=== PATIENT | male | born 1950 | race Caucasian/White ===

== ENCOUNTER 2019-12-04 09:47 | Emergency (ER) | payer OTHER, SELFPAY ==
[2019-12-04] VITALS (7 sets, daily range): BP systolic 85–130; BP diastolic 52–97; PULSE 88–124; RESP 16; TEMP 36.6; O2SAT 94–97; BMI 30.2
--- NOTE | 2019-12-04 09:55 | ECG_ITS ---
Measurements Intervals [place] Rate: 88 P: 71 WI: 191 QRS: 81 QRSD: 144 T: 50 QT: 394 QTc: 478 SINUS RHYTHM WITH OCCASIONAL VENTRICULAR PREMATURE COMPLEXES RIGHT BUNDLE BRANCH BLOCK [120+ ms QRS DURATION, UPRIGHT V1, 40+ ms S IN I/ I/aVL/V4/V5/V6] Compared to ECG 07/23/2018 16:50:21 Ventricular premature complex(es) now present Electronically Signed On 12-04-2019 19:44:22 LEAD MATERIAL HANDLER by Miranda Brady M.D. [email or web address]
--- NOTE | 2019-12-04 09:56 | CT_ITS ---
WS: [id number] CT scan of the head, 12/04/2019 Clinical Data: LOC Comparison: CT head, 01/30/2016 DLP: 490.[address] scans at [facility] use at least one of these dose optimization techniques: automat ed exposure control; mA and/or kV adjustment per patient size (includes targeted exams where dose is matched to clinical indication); or iterative reconstruction. Findings: The ventricular system is moderately dilated without shift. No recent infarct or hemorrhage is seen. There are no abnormal intracerebral masses. The cerebellum and brainstem are not remarkable. Bony windows of the skull and skull base show no fractures or erosions. The mastoid air cells, hospital intern al auditory canals, sella turcica, intraorbital contents, and paranasal sinuses are unremarkable. CT/CT head wo con* [id number] Impression: Moderate cerebral atrophy.
--- NOTE | 2019-12-04 09:56 | XR_ITS ---
WS: [id number] Portable AP upright chest, 12/04/2019 Clinical Data: LOC Comparison: Portable chest, 01/27/2019. Findings: No nodules, masses or effusions are seen. The heart is normal. The pulmonary vascularity is not increased. No pneumonia or pneumothorax is seen. There is a healed posterior lateral left sixth rib fracture. The aortic arch and descending aorta is minimally tortuous. There is an old healed impa cted left humeral head fracture. 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 XR/XR chest 1V portable 12100 Impression: Atherosclerosis.
--- NOTE | 2019-12-04 10:02 | ED_ITS ---
HPI - Alcohol General: Chief Complaint: Alcohol Stated Complaint: ALOC Time Seen by Provider: 12/04/19 09:55 History of Present Illness: HPI narrative: Patient was brought in by EMS this morning for loss of consciousness. Patient reports being on a 2-month alcohol binge. Patient was being visited by the power of research attorney this morning and was found to be unresponsive. EMS arrived and put patient in a better position for airway. Patient aroused and became alert. Patient comes in to the ER responding well to questioning. When asked if patient wants help stopping drinking he said yes. When asked about previous attempts to stop he has had previous attempts to stop with what he quotes as DTs. Patient does deny any history of seizures with alcohol withdrawal. MD complaint: alcohol dependence Review of Systems General: Reports: 10 or more systems reviewed and unremarkable except in HPI and below Neuro: Reports: other (unresponsiveness) [facility] ED PFSH: Social History Smoking and tobacco status: former smoker Physical Exam Const: COMMON NORMALS: no apparent distress and oriented x3 GENERAL APPEARANCE: cooperative HENMT: COMMON NORMALS: normocephalic, external ears normal, EAC's normal, TM's normal bilaterally and external nose normal HEAD & SCALP: normal to inspection and normocephalic FACE & SINUS: normal facial exam NOSE: external nose normal GENERAL EAR: hearing not grossly impaired EXTERNAL EAR: Yes external ears normal EXTERNAL AUDITORY CANAL: EAC's normal TYMPANIC MEMBRANE: TM's normal bilaterally MOUTH: oral and palatal mucosa normal THROAT: posterior oropharynx normal Eye: COMMON NORMALS: PERRL and EOMs intact bilaterally PUPIL: Yes PERRL Neck/C-Spine: COMMON NORMALS: full ROM and no lymphadenopathy Lymph: LYMPHATIC: no lymphedema noted Chest: COMMONS NORMALS: inspection of chest normal and palpation of chest normal Resp: COMMON NORMALS: normal respiratory effort and clear to auscultation bilaterally AUSCULTATION: clear to auscultation bilaterally Cardio: COMMON NORMALS: regular rate and regular rhythm RATE: regular rate RHYTHM: regular rhythm GI: COMMON NORMALS: normal to inspection, nondistended, normoactive bowel sounds and non-tender : COMMON NORMALS: Yes no CVA tenderness BLADDER/KIDNEY EXAM: Yes no CVA tenderness Back/Pelvis: COMMON NORMALS: no CVA tenderness and thoracic and lumbar spine normal to inspection Extremity: COMMON NORMALS: normal to inspection GENERAL: No edema Neuro: COMMON NORMALS: oriented x3, moves all extremities and no focal motor deficits Psych: COMMON NORMALS: mental status grossly normal and cooperative Skin: COMMON NORMALS: no rashes or lesions noted GENERAL SKIN EXAM: no rashes or lesions noted Course Vital Signs: Vital signs: Vital Signs Temperature 98 F 12/04/19 09:50 Pulse Rate 103 H 12/04/19 15:38 Respiratory Rate 16 12/04/19 09:50 Blood Pressure 85/52 12/04/19 15:38 Pulse Oximetry 96 12/04/19 15:38 MDM - Alcohol 2 MDM Narrative: Medical decision making narrative: Patient comes in today with complaints of unresponsiveness this morning. Patient reports that he has been drinking heavily for the last 2 months. He was found by his POA this morning who found him sleeping. When EMS got there they reposition patient he became more alert and responsive. Exam notes abdomen soft nontender skin is warm and dry colors pink. Vital signs were normal. Patient did have some episodes of emesis in the emergency room with some tingeing of blood. Differential diagnosis includes alcoholism, malnutrition, esophageal varices, hiatal hernia, gastritis, ACS, CVA, TIA. Patient was evaluated with laboratory values showing a mild anemia at 11 and 33, creatinine of 1.4, EtOH of 300, negative salicylates and acetaminophen and urine drug screen. Laboratory values for d-dimer and troponins were both negative. Gastroccult was positive. Chest x-ray noted no infiltrates. CT scan of the head was normal. CT scan of the chest abdomen pelvis noted no acute bleed or rupture but did show a large hiatal hernia. Patient was treated with Ativan for anxiety and will continue on that for alcohol withdrawal. Patient was given multivitamins and thiamine. Patient was given magnesium for a low magnesium of 1.6 on labs. Patient was given IV Protonix and will be continued on oral Protonix for his hiatal hernia. Discussed admission to the hospital offering transport to another facility due to bed availability. Patient refused and wished to go home with the medication for his stomach and his withdrawals of alcohol. Patient denied any seizures and previous alcohol withdrawals. Did tell patient that he could return to the ER for worsening symptoms or new concerns. Patient reported understanding of care plan and need for follow-up. Medical Records: Attestation: I reviewed the patient's medical records. (1005, SR rate 88 regular, occasion PVC, no ST elevation) Lab Data: Labs: Lab Results 12/04/19 12/04/19 12/04/19 Range/Units 10:05 10:05 10:05 WBC 3.6 L (4.0-10.0) 10^3/ uL RBC 3.15 L (4.1-5.3) 10^6/u L Hgb 11.0 L (11.7-16.6) g/dL Hct 33.2 L (42.0-52.0) % MCV 105.4 H (80-94) fL MCH 34.9 H (28.0-34.0) pg MCHC 33.1 (30.0-36.0) g/dL RDW 14.4 (12.1-15.1) % Plt Count 66 L (130-400) 10^3/c mm MPV 11.5 H (7.4-10.4) fL Neut % (Auto) 68.2 % Lymph % (Auto) 17.8 % [place] % (Auto) 12.8 % Eos % (Auto) 0.3 % Baso % (Auto) 0.6 % Neut # (Auto) 2.5 (1.8-7.7) 10^3/u L Lymph # (Auto) 0.6 L (0.8-4.8) 10^3/u L [place] # (Auto) 0.5 (0.2-0.9) 10^3/u L Eos # (Auto) 0.0 (0.0-0.8) 10^3/u L Baso # (Auto) 0.0 (0.0-0.1) 10^3/u L Nucleated RBC % (a uto) 0 % Nucleated RBCs # 0.0 /100WBC Specimen Type Sample Site ABG pH (7.35-7.45) ABG pCO2 (35-45) mmHg ABG pO2 (80.0-100.0) mmH g ABG HCO3 (22-26) mmol/L ABG Base Excess (-2.0-2.0) mmol/ L Som Test Hematocrit (42-52) % O2 Delivery Device FiO2 % Embedded Firmware Developer ID Sodium 138 (136-145) mmol/L Potassium 3.8 (3.5-5.1) mmol/L Chloride 87 L (98-107) mmol/L Carbon Dioxide 22 (22-29) mmol/L Anion Gap 32.8 H (5-19) BUN 15 (8-23) mg/dL Creatinine 1.4 H (0.7-1.2) mg/dL GFR Calculation 50.1 L (90-130) mL/min Glucose 94 (65-115) mg/dL Lactic Acid 3.4 H (0.5-2.2) mmol/L Lactic Acid (Sepsi s) (0.5-2.2) mmol/L Calcium 9.3 (8.5-10.5) mg/dL Magnesium 1.6 L (1.7-2.3) mg/dL Total Bilirubin 1.2 (0.15-1.2) mg/dL AST 89 H (0-40) U/L ALT 31 (0-41) U/L Alkaline Phosphata se 97 (40-130) IU/L Troponin T Baselin e (0-15) ng/mL Troponin T 120 Min alturas (0-15) ng/mL Delta Troponin T (0-10) ABS# NT-Pro-B Natriuret Pep 48 (0-125) pg/mL Total Protein 7.2 (6.6-8.7) g/dL Albumin 4.1 (3.5-5.2) g/dL Globulin 3.1 (1.3-4.6) g/dL TSH 2.79 (0.27-4.20) uIU/ mL Salicylates < 0.3 L (3-10) mg/dL Acetaminophen < 5.0 L (10-30) ug/mL Ethyl Alcohol 309 H* (0-10) mg/dL 12/04/19 12/04/19 12/04/19 Range/Units 10:05 10:08 12:10 WBC (4.0-10.0) 10^3/ uL RBC (4.1-5.3) 10^6/u L Hgb (11.7-16.6) g/dL Hct (42.0-52.0) % MCV (80-94) fL MCH (28.0-34.0) pg MCHC (30.0-36.0) g/dL RDW (12.1-15.1) % Plt Count (130-400) 10^3/c mm MPV (7.4-10.4) fL Neut % (Auto) % Lymph % (Auto) % [place] % (Auto) % Eos % (Auto) % Baso % (Auto) % Neut # (Auto) (1.8-7.7) 10^3/u L Lymph # (Auto) (0.8-4.8) 10^3/u L [place] # (Auto) (0.2-0.9) 10^3/u L Eos # (Auto) (0.0-0.8) 10^3/u L Baso # (Auto) (0.0-0.1) 10^3/u L Nucleated RBC % (a uto) % Nucleated RBCs # /100WBC Specimen Type Arterial Sample Site Radial, right ABG pH 7.39 (7.35-7.45) ABG pCO2 40.3 (35-45) mmHg ABG pO2 78.5 L (80.0-100.0) mmH g ABG HCO3 24.2 (22-26) mmol/L ABG Base Excess -0.8 (-2.0-2.0) mmol/ L Som Test Pos Hematocrit 35.9 L (42-52) % O2 Delivery Device Room air FiO2 21.0 % Embedded Firmware Developer ID ed Sodium (136-145) mmol/L Potassium (3.5-5.1) mmol/L Chloride (98-107) mmol/L Carbon Dioxide (22-29) mmol/L Anion Gap (5-19) BUN (8-23) mg/dL Creatinine (0.7-1.2) mg/dL GFR Calculation (90-130) mL/min Glucose (65-115) mg/dL Lactic Acid (0.5-2.2) mmol/L Lactic Acid (Sepsi s) (0.5-2.2) mmol/L Calcium (8.5-10.5) mg/dL Magnesium (1.7-2.3) mg/dL Total Bilirubin (0.15-1.2) mg/dL AST (0-40) U/L ALT (0-41) U/L Alkaline Phosphata se (40-130) IU/L Troponin T Baselin e 12 (0-15) ng/mL Troponin T 120 Min alturas 11.72 (0-15) ng/mL Delta Troponin T -0.28 L (0-10) ABS# NT-Pro-B Natriuret Pep (0-125) pg/mL Total Protein (6.6-8.7) g/dL Albumin (3.5-5.2) g/dL Globulin (1.3-4.6) g/dL TSH (0.27-4.20) uIU/ mL Salicylates (3-10) mg/dL Acetaminophen (10-30) ug/mL Ethyl Alcohol (0-10) mg/dL 12/04/19 Range/Units 15:00 WBC (4.0-10.0) 10^3/ uL RBC (4.1-5.3) 10^6/u L Hgb (11.7-16.6) g/dL Hct (42.0-52.0) % MCV (80-94) fL MCH (28.0-34.0) pg MCHC (30.0-36.0) g/dL RDW (12.1-15.1) % Plt Count (130-400) 10^3/c mm MPV (7.4-10.4) fL Neut % (Auto) % Lymph % (Auto) % [place] % (Auto) % Eos % (Auto) % Baso % (Auto) % Neut # (Auto) (1.8-7.7) 10^3/u L Lymph # (Auto) (0.8-4.8) 10^3/u L [place] # (Auto) (0.2-0.9) 10^3/u L Eos # (Auto) (0.0-0.8) 10^3/u L Baso # (Auto) (0.0-0.1) 10^3/u L Nucleated RBC % (a uto) % Nucleated RBCs # /100WBC Specimen Type Sample Site ABG pH (7.35-7.45) ABG pCO2 (35-45) mmHg ABG pO2 (80.0-100.0) mmH g ABG HCO3 (22-26) mmol/L ABG Base Excess (-2.0-2.0) mmol/ L Som Test Hematocrit (42-52) % O2 Delivery Device FiO2 % Embedded Firmware Developer ID Sodium (136-145) mmol/L Potassium (3.5-5.1) mmol/L Chloride (98-107) mmol/L Carbon Dioxide (22-29) mmol/L Anion Gap (5-19) BUN (8-23) mg/dL Creatinine (0.7-1.2) mg/dL GFR Calculation (90-130) mL/min Glucose (65-115) mg/dL Lactic Acid (0.5-2.2) mmol/L Lactic Acid (Sepsi s) 3.1 H (0.5-2.2) mmol/L Calcium (8.5-10.5) mg/dL Magnesium (1.7-2.3) mg/dL Total Bilirubin (0.15-1.2) mg/dL AST (0-40) U/L ALT (0-41) U/L Alkaline Phosphata se (40-130) IU/L Troponin T Baselin e (0-15) ng/mL Troponin T 120 Min alturas (0-15) ng/mL Delta Troponin T (0-10) ABS# NT-Pro-B Natriuret Pep (0-125) pg/mL Total Protein (6.6-8.7) g/dL Albumin (3.5-5.2) g/dL Globulin (1.3-4.6) g/dL TSH (0.27-4.20) uIU/ mL Salicylates (3-10) mg/dL Acetaminophen (10-30) ug/mL Ethyl Alcohol (0-10) mg/dL Discharge Plan Discharge Patient Disposition: Home, Self-Care Clinical Impression: Esophageal hiatal hernia Alcoholic intoxication Qualifiers: Complication of substance-induced condition: with unspecified complication Qualified Code(s): F10.929 - Alcohol use, unspecified with intoxication, unspecified Condition: Stable Prescriptions: New lorazepam 0.5 mg tablet 0.5 mg PO Q8H PRN (Reason: alcohol withdrawal) Qty: 20 RF: 0 Protonix 40 mg tablet,delayed release (DR/EC) 40 mg PO DAILY Qty: 30 RF: 0 No Action lisinopril 20 mg tablet 20 mg PO DAILY RF: 0 aspirin 81 mg Tablet,Chewable 81 mg PO DAILY RF: 0 Discharge Orders: Discharge Order (Routine); Ordered 12/04/19 Ordered By: Reza Pfeiffer Referrals: Reza Morrow [Primary Care Provider] - Discharge Diet: Usual diet Discharge Activity: Increase activity as tolerated Patient Instructions: Abuse of Alcohol (ED) Activity Restrictions/Additional Instructions: Drink plenty of fluids Drink no alcohol Use medications as directed [facility] Take medications as directed Return to ER for any concerns DT's Coding Level of Care Code 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
[2019-12-04 10:16] LABS: Basophils % 0.6 %; Eosinophils % 0.3 %; Hematocrit 33.2 % (42.0-52.0); Lymphocytes # 0.6 10^3/uL (0.8-4.8); Lymphocytes % 17.8 %; Mean Corpuscular HGB Conc 33.1 g/dL (30.0-36.0); Mean Corpuscular Hemoglobin 34.9 pg (28.0-34.0); Mean Corpuscular Volume 105.4 fL (80-94); Mean Platelet Volume 11.5 fL (7.4-10.4); Monocytes # 0.5 10^3/uL (0.2-0.9); Monocytes % 12.8 %; Neutrophils # 2.5 10^3/uL (1.8-7.7); Neutrophils % 68.2 %; Nucleated Red Blood Cells % 0 %; Platelet Count 66 10^3/cmm (130-400); Red Blood Count 3.15 10^6/uL (4.1-5.3); Red Cell Distribution Width 14.4 % (12.1-15.1); White Blood Count 3.6 10^3/uL (4.0-10.0)
[2019-12-04 10:20] LABS: ABG PCO2 40.3 mmHg (35-45); ABG PH Result 7.39 (7.35-7.45); Arterial Blood Gas Hematocrit 35.9 % (42-52); Base Excess ABG -0.8 mmol/L (-2.0-2.0); Blood Gas Allen Test Pos; Blood Gas Sample Site Radial, right; Blood Gas Sample Type Arterial; HCO3 ABG 24.2 mmol/L (22-26); Oxygen Device ROOM AIR; PO2 ABG 78.5 mmHg (80.0-100.0)
[2019-12-04 10:30] LABS: Lactic Sepsis W/Reflex 3.4 mmol/L (0.5-2.2)
[2019-12-04 10:31] LABS: Troponin(5th) Baseline 12 ng/mL (0-15)
[2019-12-04 10:47] LABS: Alanine Aminotransferase 31 U/L (0-41); Albumin Level 4.1 g/dL (3.5-5.2); Alkaline Phosphatase 97 IU/L (40-130); Anion Gap 32.8 (5-19); Aspartate Amino Transferase 89 U/L (0-40); Blood Urea Nitrogen 15 mg/dL (8-23); Calcium 9.3 mg/dL (8.5-10.5); Carbon Dioxide 22 mmol/L (22-29); Chloride 87 mmol/L (98-107); Creatinine Clr Calc Pharmacy 55.2878; Globulin 3.1 g/dL (1.3-4.6); Glomerular Filtration Rate 50.1 mL/min (90-130); Glucose 94 mg/dL (65-115); Magnesium 1.6 mg/dL (1.7-2.3); NT Pro B Type Natriuretic Pept 48 pg/mL (0-125); Potassium 3.8 mmol/L (3.5-5.1); Sodium 138 mmol/L (136-145); Thyroid Stimulating Hormone 2.79 uIU/mL (0.27-4.20); Total Bilirubin 1.2 mg/dL (0.15-1.2); Total Protein 7.2 g/dL (6.6-8.7)
[2019-12-04] MEDS: LORazepam 0.5 mg Tablet PO (10:48)
[2019-12-04] MEDS: folic acid 1 MG, multivitamin inj 10 ML, thiamine 100 MG in sodium chloride 0.9% 1,000 ML 252.8 MG IV (10:49)
[2019-12-04 10:53] LABS: Acetaminophen < 5.0 ug/mL (10-30); Salicylate < 0.3 mg/dL (3-10)
[2019-12-04 10:54] LABS: Alcohol Level 309 mg/dL (0-10)
[2019-12-04 11:59] LABS: Reflex Lactate Order REFLEX LACTIC ORDERD
[2019-12-04 12:33] LABS: Troponin 5 2HR 11.72 ng/mL (0-15)
[2019-12-04 12:41] LABS: Troponin 5 2HR Delta -0.28 ABS# (0-10)
--- NOTE | 2019-12-04 12:45 | PC.NURSE ---
pt c/o blood tinged vomit. ED provider notified. ED provider in room to assess
--- NOTE | 2019-12-04 12:47 | CT_ITS ---
WS: [id number] CT scan of the chest With IV contrast, CT scan of the abdomen and pelvis with IV contrast Additiona l two-dimensional coronal and sagittal reconstruction was performed. 12/04/2019 Clinical Data: hemoptysis Comparison: Portable chest, 12/04/2019, CT abdomen and pelvis, 12/22/2018. DLP: 2049.[address] scans at [facility] use at least one of these dose optimization techniques: automat ed exposure control; mA and/or kV adjustment per patient size (includes targeted exams where dose is matched to clinical indication); or iterative reconstruction. Findings: Chest: No nodules, masses or effusions are seen. The heart size is normal with no pericardial effusion. The trachea bifurcates normally into the bronc hi. The pulmonary arterial system and thoracic aorta demonstrate no abnormalities or dilatations. There is no axillary or significant mediastinal adenopathy. The old left 11th rib fracture is again n oted. There is a large hiatal hernia. Abdomen/pelvis: The liver, gallbladder, spleen, adrenal glands and pancreas show fatty infiltration of the liver.. The kidneys show equal bilateral contrast excretion with a 4.2 cm superior right renal cyst and a sma ll left cortical cyst. No masses, hydronephrosis or renal calculi can be seen.. The abdominal aorta is normal in size with minimal calcification in the wall.. No appendicitis or diverticulitis is seen. The stomach, small bowel and colon are unremarkable. No ab scess, adenopathy, ascites, mass, obstruction or free air is seen. The bladder is wall. The prostate is enlarged. There are small bilateral fat-containing inguinal irma ias.. The bones of the thorax, lumbar spine, pelvis, and hips show moderate osteoarthritis especiall y in the lumbar vertebral bodies along with L5-S1 degenerative disc disease.. CT/CT chest abd pel w con* Impression: 1. Large hiatal hernia. 2. Fatty infiltration of liver. 3. Bilateral renal cysts. 4. Negative for acute intra-abdominal, intrathoracic or pelvic abnormalities.
[2019-12-04] MEDS: ondansetron 2 mg/ML SDV 2 mL 4 MG IVP (12:59)
[2019-12-04] MEDS: pantoprazole 40 mg SDV 80 MG IVP (13:00)
--- NOTE | 2019-12-04 13:29 | PC.NURSE ---
pt transported to CT by stretcher with tech
[2019-12-04] MEDS: iodixanol 320 mg/mL 100mL Btl IV (13:31)
--- NOTE | 2019-12-04 13:38 | PC.NURSE ---
pt back from ct by antonio
[2019-12-04] MEDS: diphenhydrAMINE 50 mg/mL SDV 1mL 25 MG IVP (13:58)
[2019-12-04] MEDS: metoclopramide 5 mg/mL SDV 2 mL 10 MG IVP (13:58)
[2019-12-04] MEDS: magnesium sulfate premix 2 GM/50 ML PIGGYBACK IV (14:15)
--- NOTE | 2019-12-04 14:42 | PC.NURSE ---
pt's oxygen down to 85% while sleeping. Pt denies any known history of DARRION. nurse placed 2L supplemental oxygen via nasal cannula
[2019-12-04 15:19] LABS: Lactic Acid level (Lactate) 3.1 mmol/L (0.5-2.2)
== END 2019-12-04 16:00 | disposition home or self-care (01) ==
PROVIDERS: Emergency Provider Nurse Practitioner Family; Family Provider Family Medicine; PCP Family Medicine
DX: F10.120 Alcohol abuse with intoxication, uncomplicated (principal); K44.9 Diaphragmatic hernia without obstruction or gangrene; F41.9 Anxiety disorder, unspecified; Y90.8 Blood alcohol level of 240 mg/100 ml or more; K76.0 Fatty (change of) liver, not elsewhere classified; N20.0 Calculus of kidney; G31.9 Degenerative disease of nervous system, unspecified; I70.0 Atherosclerosis of aorta; I45.10 Unspecified right bundle-branch block; Z87.891 Personal history of nicotine dependence; E83.42 Hypomagnesemia
CPT/HCPCS: 36415; 36600; 70450; 71045; 71260; 74177; 80053; 80307; 82803; 83605; 83735; 83880; 84443; 84484; 85025; 87040; 87205; 93005; 96361; 96365; 96374; 96375; 99283; 99284; C9113; J1200; J2405; J2765; J3411; J3475; J3490; J7030; Q9967

== ENCOUNTER 2019-12-24 09:51 | Outpatient (CLI) | payer OTHER, SELFPAY ==
[2019-12-24 10:31] LABS: Basophils # 0.1 10^3/uL (0.0-0.1); Basophils % 1.6 %; Eosinophils # 0.3 10^3/uL (0.0-0.8); Eosinophils % 4.1 %; Hematocrit 35.9 % (42.0-52.0); Hemoglobin 11.4 g/dL (11.7-16.6); Lymphocytes # 1.6 10^3/uL (0.8-4.8); Lymphocytes % 22.6 %; Mean Corpuscular HGB Conc 31.8 g/dL (30.0-36.0); Mean Corpuscular Volume 110.1 fL (80-94); Mean Platelet Volume 11.2 fL (7.4-10.4); Monocytes # 0.5 10^3/uL (0.2-0.9); Monocytes % 6.8 %; Neutrophils # 4.6 10^3/uL (1.8-7.7); Neutrophils % 64.5 %; Nucleated Red Blood Cells % 0 %; Platelet Count 415 10^3/cmm (130-400); Red Blood Count 3.26 10^6/uL (4.1-5.3); Red Cell Distribution Width 12.3 % (12.1-15.1); White Blood Count 7.1 10^3/uL (4.0-10.0)
[2019-12-24 10:56] LABS: Alanine Aminotransferase 22 U/L (0-41); Albumin Level 4.1 g/dL (3.5-5.2); Alkaline Phosphatase 89 IU/L (40-130); Aspartate Amino Transferase 27 U/L (0-40); Blood Urea Nitrogen 7 mg/dL (8-23); Calcium 9.9 mg/dL (8.5-10.5); Carbon Dioxide 30 mmol/L (22-29); Chloride 103 mmol/L (98-107); Ferritin 255 ng/mL (30-400); Globulin 3.6 g/dL (1.3-4.6); Glomerular Filtration Rate 95.6 mL/min (90-130); Glucose 108 mg/dL (65-115); Iron 54 ug/dL (59-158); Osmolality Calculated 290 mOsm/kg (285-295); Percent Saturation 26.8 % (20-50); Sodium 142 mmol/L (136-145); Total Bilirubin 0.4 mg/dL (0.15-1.2); Total Iron Binding Capacity 201 mcg/dl; Total Protein 7.7 g/dL (6.6-8.7); Unsaturated Iron Binding 147 ug/dL (112-347)
--- NOTE | 2019-12-28 14:41 | ONC FU_ITS ---
Dr. Thompson Patient Follow-Up Note Patient: Trenton Sainz Unit #: [id number]: 1950 Dicatated By: Saqib Thompson M.D.Date of Visit:Dec 24, 2019 Onc Med Follow-up/Prog Note Chief Complaint: Anemia. History of Present Illness: This is a 69 year-old man with a mild anemia. I had seen him initially on 04/14/2018. His records from the [place] included a CBC from 03/07/2018 showing hemoglobin 10.9 g with hematocrit 32.2%. The white blood cell count was 4100 and the platelet count was 296,000. Chem profile showed borderline renal function with BUN 14 and creatinine 1.21 mg/dL. Bilirubin was normal at 0.7 mg/dL with alkaline phosphatase normal at 82 U/L and SGOT and SGPT slightly elevated at 106 U/L and 74 U/L respectively. In reviewing his records in [facility], he had several blood counts in 2015, all showing mild anemia, hemoglobin 9-10 g, with white count and platelet counts in the low normal to mildly decreased range. The red cell indices were mildly macrocytic. A previous CBC from 07/15/2014 showed hemoglobin just slightly low at 12.2 g with white blood cell count 9400 and platelet count 293,000. A CT abdomen/pelvis in August 2016 was unremarkable except for a fat-containing right inguinal hernia. There was evidence of fatty infiltration of the liver, but there was no splenomegaly noted. His laboratory studies in April 2018 included CBC showing hemoglobin 11.0 g, white blood cell count 6100, and platelet count 289,000. The red cell indices were mildly macrocytic. B12 level was in the low-normal range at 303 pg/mL. Serum iron studies show transferrin saturation 33.2% and ferritin was normal at 119 ng/mL. LDH was normal and protein electrophoresis studies were unrevealing. At that time he was having significant alcohol use and as he was just mildly anemic, and I had initially opted to just follow him on observation. He has multiple medical illnesses including hypertension, hyperlipidemia, cerebrovascular disease, hiatal hernia/GERD, benign prostatic hypertrophy, degenerative arthritis, and gout. He has additional history of alcohol related pancreatitis, and he has posttraumatic stress disorder with associated anxiety/depression. He is a nonsmoker. He receives his primary care through the [place]. INTERIM HISTORY: At his follow-up visit on 12/11/2018 he had a mild pancytopenia, but with hemoglobin adequate at 12.5 g. I had suspected that it was alcohol related, though with myelodysplastic syndrome not excluded. As his blood counts were just mildly decreased, he continued observation/expectant management. On 01/27/2019 he presented to the emergency room with coffee-ground emesis and tarry stools. His hemoglobin had decreased to 8.4 g. He was transferred to [facility] for admission, where he subsequently was found to have 2 ruptures in the esophagus and an ulcer, as reported by his . He had an uneventful recovery, and at that point he did stop drinking. I had seen him for a follow-up visit on 04/05/2019. At that point he was just mildly anemic with hemoglobin 11.2 g. White blood cell count was normal at 7800 and his platelet count was normal at 312,000. He was seen for follow-up again on 07/09/2019 with hemoglobin stable at 11.4 g and transferrin saturation normal at 23.5%. He is seen for a scheduled visit. He has been feeling tired, but he is able to do some light work. His appetite has been good. He has not had fever. He has night sweating about once a week. He had treatment for bronchitis 1 to 2 months ago. He still has a hacking cough. He brings up mostly white phlegm. He has shortness of breath with activity. He does not complain of chest pain. He has acid reflux symptoms in association with hiatal hernia, but it has been well controlled with omeprazole. Bowel function has been okay. Bladder function has been adequate with tamsulosin. He complains that his shoulders and knees pop. He does not complain of headache. He has numbness/tingling in his feet. His hands also go numb at times. He has anxiety/depression and his Paxil dosage was recently increased to 40 mg. Medications: Allopurinol 1 Tablet (of 100 mg) Oral daily, Artificial Tears 1 drop(s) (of 1.4 %) Solution Ophthalmic b.i.d., Aspirin 1 Tablet (of 325 mg) Tablet, enteric coated Oral daily, Coenzyme Q10 1 Capsule Oral daily, EQ Omeprazole 1 - 2 Tablet (of 20 mg) Tablet, enteric coated Oral daily, Gabapentin 1 Capsule (of 300 mg) Oral daily, Lisinopril 1 Tablet (of 40 mg) Oral daily PRN, Magnesium 1 Capsule (of 400 mg) Oral b.i.d., Multivitamin Adults 1 Tablet Oral daily, PARoxetine HCl 0.5 Tablet (of 40 mg) Oral daily, Tamsulosin HCl 2 Capsule (of 0.4 mg) Oral daily Allergies: No Known Allergies. Review of Systems: Constitutional - His energy level is low. He feels tired. Appetite is good and weight is down about 12 pounds from last visit. No fever, chills, hot flashes, or night sweats. ECOG score is 1, ENMT - No sinus congestion/drainage. No mouth sores. No sore throat or difficulty swallowing, Hematologic/Lymphatic - He bruises easily, Respiratory - No shortness of breath. No cough. No pleuritic pain or hemoptysis, Cardiovascular - No angina pain. No palpitations, Gastrointestinal - No nausea or vomiting. He has heartburn but it is well controlled with Prilosec. No diarrhea or constipation. No blood in the stool or black stools, Genitourinary (M) - No dysuria or hematuria. No urinary frequency. No urgency or incontinence. He does take Flomax at night, Musculoskeletal - He has arthritic pain to his knees and left shoulder, Integumentary - No skin complications, Neurologic - No headaches. He does have occasional dizziness. He has intermittent numbness in his feet and hands, Psychiatric - No anxiety or depression. No insomnia, ENMT - No sinus congestion/drainage. No mouth sores. No sore throat or difficulty swallowing, Hematologic/Lymphatic - He bruises easily, Respiratory - No shortness of breath. No cough. No pleuritic pain or hemoptysis, Cardiovascular - No angina pain. No palpitations, Gastrointestinal - No nausea or vomiting. She has some heartburn that is controlled with Prilosec. No diarrhea or constipation. No blood in the stool or black stools, Genitourinary (M) - No dysuria or hematuria. No urinary frequency. No urgency or incontinence, Musculoskeletal - He had some arthritic pain to his shoulders and knee, Integumentary - No skin complications, Neurologic - No headaches. He does have episodes of dizziness. He has some tingling to his feet and hands, Psychiatric - No anxiety or depression. No insomnia. Vital Signs: Performed on Dec 24, 2019 12:52 Height - 70.00 in Weight - 215 lbs (LOW) BSA - 2.15 sq.m BMI - 30.85 (HIGH) Temperature - 98.6 F Pulse - 100 /min Respiration - 19 /min BP - 132/79 mm(hg) O2 Sat - 99 % Pain - 0 Physical Examination: Constitutional - He looks pretty good generally, Eyes - Sclerae nonicteric. Conjunctivae clear, ENMT - No lesions noted in the oral cavity, Hematologic/Lymphatic - No cervical, clavicular, or axillary adenopathy, Respiratory - Lungs are clear with good air movement bilaterally, Cardiovascular - Heart rhythm is regular. There is a I/ systolic murmur. There is no gallop or rub noted, Abdomen - Soft. Liver is not enlarged. Spleen is not palpable. There is no abdominal mass or ascites noted and there is no inguinal adenopathy, Extremities - No edema, Neurologic - No focal neurologic deficits noted. Lab/Imaging: Test performed on Dec 24, 2019 10:00 Ferritin 255 ng/mL Iron 54 mcg/dL Sodium 142 mmol/L Iron Binding Capacity (TIBC) 201 mcg/dl Potassium 4.0 mmol/L % Iron Saturation 26.8 % Chloride 103 mmol/L CO2 30 mmol/L UIBC 147 mcg/dL Anion Gap 13.0 BUN 7 mg/dL Creatinine 0.8 mg/dL Cr Clearance (Est) 118.52 mL/min eGFR 95.6 mL/min Glucose 108 mg/dL Calcium 9.9 mg/dL Protein, Total 7.7 g/dL Albumin 4.1 g/dL Globulin 3.6 g/dL Bilirubin, Total 0.4 mg/dL ALT (SGPT) 22 U/L AST (SGOT) 27 U/L Alkaline Phosphatase 89 IU/L WBC 7.1 10 3/uL RBC 3.26 10 6/uL HGB 11.4 g/dL HCT 35.9 % MCV 110.1 fL MCH 35.0 pg MCHC 31.8 g/dL RDW 12.3 % Platelet Count 415 10 3/cmm MPV 11.2 fL Neutrophils 4.6 10 3/uL Lymphocytes 1.6 10 3/uL Monocytes 0.5 10 3/uL Eosinophils 0.3 10 3/uL Basophils 0.1 10 3/uL Neutrophil % 64.5 % Lymphocyte % 22.6 % Monocyte % 6.8 % Eosinophil % 4.1 % Basophils % 1.6 % Impression: 1. Patient with mild pancytopenia, presumed to be alcohol related, as he had a history of significant alcohol use and he apparently also had associated pancreatitis. 2. In January 2019 he became more severely anemic in association with acute GI blood loss. At that point he did stop drinking. His other medical illnesses include: 3. Hypertension, which appears to be somewhat labile. 4. Hyperlipidemia. 5. Cerebrovascular disease with history of previous stroke. 6. Hiatal hernia/GERD. He has had associated esophageal stricture. 7. Benign prostatic hypertrophy. He also has had mildly elevated PSA level. 8. Degenerative arthritis. 9. Gout. 10. Posttraumatic stress disorder with anxiety/depression. He has had complete resolution of leukopenia and thrombocytopenia since he stopped drinking. During followup he has remained mildly anemic, but without evidence of iron deficiency or B12 deficiency. As such, this appears to most likely be a mild chronic disease anemia. Myelodysplastic syndrome is not excluded, but appears unlikely. Plan: He continues on observation/expectant management. I will see him again in 6 months. Signed By: Saqib Thompson M.D. <<Signature on File>>
== END 2019-12-24 09:52 | disposition home or self-care (01) ==
PROVIDERS: Family Provider Family Medicine; PCP Family Medicine; Visit Provider Internal Medicine Medical Oncology
DX: D64.9 Anemia, unspecified (principal); I10 Essential (primary) hypertension; E78.5 Hyperlipidemia, unspecified; I25.10 Atherosclerotic heart disease of native coronary artery without angina pectoris; K44.9 Diaphragmatic hernia without obstruction or gangrene; K21.9 Gastro-esophageal reflux disease without esophagitis; N40.0 Benign prostatic hyperplasia without lower urinary tract symptoms; M19.90 Unspecified osteoarthritis, unspecified site; F43.10 Post-traumatic stress disorder, unspecified; F10.21 Alcohol dependence, in remission; F41.8 Other specified anxiety disorders; Z79.899 Other long term (current) drug therapy
CPT/HCPCS: 36415; 80053; 82728; 83540; 83550; 85025; G0463

== ENCOUNTER 2020-06-26 11:58 | Outpatient (CLI) | payer OTHER, SELFPAY ==
[2020-06-26 12:39] LABS: Basophils # 0.1 10^3/uL (0.0-0.1); Basophils % 1.4 %; Eosinophils # 0.1 10^3/uL (0.0-0.8); Eosinophils % 2.5 %; Hematocrit 38.2 % (42.0-52.0); Hemoglobin 12.8 g/dL (11.7-16.6); Lymphocytes # 1.6 10^3/uL (0.8-4.8); Lymphocytes % 27.8 %; Mean Corpuscular HGB Conc 33.5 g/dL (30.0-36.0); Mean Corpuscular Hemoglobin 35.6 pg (28.0-34.0); Mean Corpuscular Volume 106.1 fL (80-94); Mean Platelet Volume 10.7 fL (7.4-10.4); Monocytes # 0.4 10^3/uL (0.2-0.9); Monocytes % 7.2 %; Neutrophils # 3.47 10^3/uL (1.8-7.7); Neutrophils % 60.9 %; Nucleated Red Blood Cells % 0 %; Platelet Count 261 10^3/cmm (130-400); Red Cell Distribution Width 14.1 % (12.1-15.1); White Blood Count 5.7 10^3/uL (4.0-10.0)
[2020-06-26 12:58] LABS: Alanine Aminotransferase 32 U/L (0-41); Albumin Level 4.3 g/dL (3.5-5.2); Alkaline Phosphatase 92 IU/L (40-130); Anion Gap 22.1 (5-19); Aspartate Amino Transferase 49 U/L (0-40); Blood Urea Nitrogen 10 mg/dL (8-23); Carbon Dioxide 22 mmol/L (22-29); Chloride 99 mmol/L (98-107); Globulin 3.1 g/dL (1.3-4.6); Glucose 81 mg/dL (65-115); Osmolality Calculated 286 mOsm/kg (285-295); Potassium 4.1 mmol/L (3.5-5.1); Sodium 139 mmol/L (136-145); Total Bilirubin 0.8 mg/dL (0.15-1.2); Total Protein 7.4 g/dL (6.6-8.7)
[2020-06-26 13:26] LABS: Iron 142 ug/dL (59-158); Total Iron Binding Capacity 229 mcg/dl
[2020-06-26 13:37] LABS: Ferritin 142 ng/mL (30-400); Unsaturated Iron Binding 87 ug/dL (112-347)
--- NOTE | 2020-06-29 10:56 | ONC FU_ITS ---
Dr. Thompson Patient Follow-Up Note Patient: Trenton Sainz Unit #: [id number]: 1950 Dicatated By: Saqib Thompson M.D.Date of Visit:Jun 26, 2020 Onc Med Follow-up/Prog Note Chief Complaint: Anemia. History of Present Illness: This is a 70 year-old man with a mild anemia. I had seen him initially on 04/14/2018. His records from the [place] included a CBC from 03/07/2018 showing hemoglobin 10.9 g with hematocrit 32.2%. The white blood cell count was 4100 and the platelet count was 296,000. Chem profile showed borderline renal function with BUN 14 and creatinine 1.21 mg/dL. Bilirubin was normal at 0.7 mg/dL with alkaline phosphatase normal at 82 U/L and SGOT and SGPT slightly elevated at 106 U/L and 74 U/L respectively. In reviewing his records in [facility], he had several blood counts in 2015, all showing mild anemia, hemoglobin 9-10 g, with white count and platelet counts in the low normal to mildly decreased range. The red cell indices were mildly macrocytic. A previous CBC from 07/15/2014 showed hemoglobin just slightly low at 12.2 g with white blood cell count 9400 and platelet count 293,000. A CT abdomen/pelvis in August 2016 was unremarkable except for a fat-containing right inguinal hernia. There was evidence of fatty infiltration of the liver, but there was no splenomegaly noted. His laboratory studies in April 2018 included CBC showing hemoglobin 11.0 g, white blood cell count 6100, and platelet count 289,000. The red cell indices were mildly macrocytic. B12 level was in the low-normal range at 303 pg/mL. Serum iron studies show transferrin saturation 33.2% and ferritin was normal at 119 ng/mL. LDH was normal and protein electrophoresis studies were unrevealing. At that time he was having significant alcohol use and as he was just mildly anemic, and I had initially opted to just follow him on observation. He has multiple medical illnesses including hypertension, hyperlipidemia, cerebrovascular disease, hiatal hernia/GERD, benign prostatic hypertrophy, degenerative arthritis, and gout. He has additional history of alcohol related pancreatitis, and he has posttraumatic stress disorder with associated anxiety/depression. He is a nonsmoker. He receives his primary care through the [place]. INTERIM HISTORY: At his follow-up visit on 12/11/2018 he had a mild pancytopenia, but with hemoglobin adequate at 12.5 g. I had suspected that it was alcohol related, though with myelodysplastic syndrome not excluded. As his blood counts were just mildly decreased, he continued observation/expectant management. On 01/27/2019 he presented to the emergency room with coffee-ground emesis and tarry stools. His hemoglobin had decreased to 8.4 g. He was transferred to [facility] for admission, where he subsequently was found to have 2 ruptures in the esophagus and an ulcer, as reported by his . He had an uneventful recovery, and at that point he did stop drinking. I had seen him for a follow-up visit on 04/05/2019. At that point he was just mildly anemic with hemoglobin 11.2 g. White blood cell count was normal at 7800 and his platelet count was normal at 312,000. He was seen for follow-up again on 07/09/2019 with hemoglobin stable at 11.4 g and transferrin saturation normal at 23.5%. He is seen for a scheduled visit. He has been feeling pretty good generally. His main complaint now is that his knees have been hurting a lot, enough that he is having trouble walking. It is limiting his activity. He says he has a little energy now. ECOG score is 1. His appetite is good. He has not had fever. He occasionally has sweating at night. He has some sinus drainage with associated cough. He does not complain of shortness of breath or chest pain. He has nausea, which he attributes to mucus. His acid reflux is adequately managed with medication. Bowel function has been okay. His bladder function remains adequate with tamsulosin. He also has pain in his left shoulder, and he complains that his back hurts. He does not complain of headache. He has occasional orthostatic lightheadedness. He has a little bit of numbness in his feet. Medications: Allopurinol 1 Tablet (of 300 mg) Oral daily, Artificial Tears 1 drop(s) (of 1.4 %) Solution Ophthalmic b.i.d., Aspirin 1 Tablet (of 325 mg) Tablet, enteric coated Oral daily, Coenzyme Q10 1 Capsule Oral daily, EQ Omeprazole 1 - 2 Tablet (of 20 mg) Tablet, enteric coated Oral daily, Fluorouracil 1 (1 %) Cream Topical PRN, Gabapentin 1 Capsule (of 300 mg) Oral daily, Lisinopril 0.5 Tablet (of 20 mg) Oral daily PRN, Lovastatin 0.5 Tablet (of 10 mg) Oral daily, Magnesium 1 Capsule (of 400 mg) Oral b.i.d., Metoprolol Tartrate 0.5 Tablet (of 50 mg) Oral b.i.d., Multivitamin Adults 1 Tablet Oral daily, PARoxetine HCl 0.5 Tablet (of 40 mg) Oral daily, prednisoLONE Acetate 1 Drop(s) (of 1 %) Suspension Ophthalmic daily PRN, Tamsulosin HCl 2 Capsule (of 0.4 mg) Oral daily Allergies: No Known Allergies. Review of Systems: Constitutional - He says he has a little energy, but he has limited activity. Appetite is good. His weight is down another 5 lbs. No fever. He occasionally has night sweating. ECOG score is 1, ENMT - He has sinus drainage. No mouth sores. No sore throat or difficulty swallowing, Hematologic/Lymphatic - He bruises a lot, Respiratory - No shortness of breath. He has some cough with the sinus drainage. No pleuritic pain or hemoptysis, Cardiovascular - No angina pain. No palpitations, Gastrointestinal - He has nausea which she attributes to mucus. His acid reflux is adequately managed with medication. No diarrhea or constipation. No blood in the stool or black stools, Genitourinary (M) - No dysuria or hematuria. No urinary frequency. No urgency or incontinence, Musculoskeletal - He has significant pain in his knees, enough that he has trouble walking. He also has pain in his left shoulder and he complains that his back hurts, Integumentary - No skin rash, Neurologic - No headache. He has occasional orthostatic lightheadedness. He has a little bit of numbness in his feet. No other focal neurologic symptoms, Psychiatric - He has anxiety/depression. No insomnia. Vital Signs: Performed on Jun 26, 2020 14:39 Height - 70.00 in Weight - 210.8 lbs (LOW) BSA - 2.13 sq.m BMI - 30.25 (HIGH) Temperature - 99.5 F (HIGH) Pulse - 116 /min (HIGH) Respiration - 22 /min BP - 139/73 mm(hg) O2 Sat - 93 % (LOW) Pain - 8 Physical Examination: Constitutional - He looks pretty good generally, Eyes - Sclerae nonicteric. Conjunctivae clear, ENMT - No lesions noted in the oral cavity, Hematologic/Lymphatic - No cervical, clavicular, or axillary adenopathy, Respiratory - Lungs are clear with good air movement bilaterally, Cardiovascular - Heart rhythm is regular. There is a I/ systolic murmur. There is no gallop or rub noted, Abdomen - Soft. Liver is not enlarged. Spleen is not palpable. There is no abdominal mass or ascites noted and there is no inguinal adenopathy, Extremities - No edema. Dorsalis pedis pulses are palpable bilaterally, Neurologic - No focal neurologic deficits noted. Lab/Imaging: Test performed on Jun 26, 2020 12:00 Ferritin 142 ng/mL Iron 142 mcg/dL Sodium 139 mmol/L Iron Binding Capacity (TIBC) 229 mcg/dl Potassium 4.1 mmol/L % Iron Saturation 62.0 % Chloride 99 mmol/L CO2 22 mmol/L UIBC 87 mcg/dL Anion Gap 22.1 BUN 10 mg/dL Creatinine 1.1 mg/dL Cr Clearance (Est) 83.30 mL/min Glucose 81 mg/dL Osmolality - Calculated 286 mOsm/kg Calcium 9.0 mg/dL Protein, Total 7.4 g/dL Albumin 4.3 g/dL Globulin 3.1 g/dL Bilirubin, Total 0.8 mg/dL ALT (SGPT) 32 U/L AST (SGOT) 49 U/L Alkaline Phosphatase 92 IU/L WBC 5.7 10 3/uL RBC 3.60 10 6/uL HGB 12.8 g/dL HCT 38.2 % MCV 106.1 fL MCH 35.6 pg MCHC 33.5 g/dL RDW 14.1 % Platelet Count 261 10 3/cmm MPV 10.7 fL Neutrophils 3.47 10 3/uL Lymphocytes 1.6 10 3/uL Monocytes 0.4 10 3/uL Eosinophils 0.1 10 3/uL Basophils 0.1 10 3/uL Neutrophil % 60.9 % Lymphocyte % 27.8 % Monocyte % 7.2 % Eosinophil % 2.5 % Basophils % 1.4 % NRBC % 0 % Impression: 1. Patient with mild pancytopenia, presumed to be alcohol related, as he had a history of significant alcohol use and he apparently also had associated pancreatitis. 2. In January 2019 he became more severely anemic in association with acute GI blood loss. At that point he did stop drinking. His other medical illnesses include: 3. Hypertension, which appears to be somewhat labile. 4. Hyperlipidemia. 5. Cerebrovascular disease with history of previous stroke. 6. Hiatal hernia/GERD. He has had associated esophageal stricture. 7. Benign prostatic hypertrophy. He also has had mildly elevated PSA level. 8. Degenerative arthritis. 9. Gout. 10. Posttraumatic stress disorder with anxiety/depression. He had complete resolution of leukopenia and thrombocytopenia after he stopped drinking. During followup he had remained mildly anemic, but without evidence of iron deficiency or B12 deficiency. It appears to most likely be a chronic disease anemia. However, over time there has been a gradual increase in his hemoglobin/hematocrit levels, which are now just at the lower normal range. He is having significant problems associated with arthritis in his knees. He otherwise appears stable clinically. Plan: He continues on observation/expectant management. [facility] I will see him again as needed. Signed By: Saqib Thompson M.D. <<Signature on File>>
== END 2020-06-26 11:59 | disposition home or self-care (01) ==
LOC: ONCMED 12:00
PROVIDERS: PCP Family Medicine; Visit Provider Internal Medicine Medical Oncology
DX: D50.0 Iron deficiency anemia secondary to blood loss (chronic) (principal); M17.2 Bilateral post-traumatic osteoarthritis of knee; I10 Essential (primary) hypertension; E78.5 Hyperlipidemia, unspecified; I25.10 Atherosclerotic heart disease of native coronary artery without angina pectoris; K21.9 Gastro-esophageal reflux disease without esophagitis; K44.0 Diaphragmatic hernia with obstruction, without gangrene; N40.0 Benign prostatic hyperplasia without lower urinary tract symptoms; R97.20 Elevated prostate specific antigen [PSA]; Z86.73 Personal history of transient ischemic attack (TIA), and cerebral infarction without residual deficits
CPT/HCPCS: 80053; 82728; 83540; 83550; 85025; G0463

== ENCOUNTER 2021-01-14 11:37 | Outpatient (CLI) | payer OTHER, SELFPAY ==
[2021-01-14 12:01] LABS: Basophils # 0.1 10^3/uL (0.0-0.1); Basophils % 0.4 %; Eosinophils # 0.1 10^3/uL (0.0-0.8); Eosinophils % 0.8 %; Hematocrit 31.6 % (42.0-52.0); Hemoglobin 10.2 g/dL (11.7-16.6); Lymphocytes % 18.2 %; Mean Corpuscular HGB Conc 32.3 g/dL (30.0-36.0); Mean Corpuscular Hemoglobin 31.4 pg (28.0-34.0); Mean Corpuscular Volume 97.2 fL (80-94); Monocytes # 0.7 10^3/uL (0.2-0.9); Monocytes % 6.6 %; Neutrophils # 8.21 10^3/uL (1.8-7.7); Neutrophils % 73.6 %; Nucleated Red Blood Cells % 0 %; Platelet Count 425 10^3/cmm (130-400); Red Blood Count 3.25 10^6/uL (4.1-5.3); Red Cell Distribution Width 13.9 % (12.1-15.1); White Blood Count 11.2 10^3/uL (4.0-10.0)
[2021-01-14 12:21] LABS: Alanine Aminotransferase 8 U/L (0-41); Albumin Level 3.4 g/dL (3.5-5.2); Alkaline Phosphatase 113 IU/L (40-130); Aspartate Amino Transferase 14 U/L (0-40); Blood Urea Nitrogen 9 mg/dL (8-23); Calcium 9.3 mg/dL (8.5-10.5); Carbon Dioxide 27 mmol/L (22-29); Chloride 101 mmol/L (98-107); Ferritin 472 ng/mL (30-400); Globulin 3.4 g/dL (1.3-4.6); Glucose 98 mg/dL (65-115); Iron 35 ug/dL (59-158); Osmolality Calculated 287 mOsm/kg (285-295); Percent Saturation 20.3 % (20-50); Sodium 139 mmol/L (136-145); Total Bilirubin 0.4 mg/dL (0.15-1.2); Total Iron Binding Capacity 172 mcg/dl; Total Protein 6.8 g/dL (6.6-8.7); Unsaturated Iron Binding 137 ug/dL (112-347)
[2021-01-14 15:12] LABS: Immunoglobulin IGA 484 mg/dL (70-400); Immunoglobulin IGG 1037 mg/dL (700-1600); Immunoglobulin IGM 85 mg/dL (40-230)
[2021-01-14 16:03] LABS: Erythrocyte Sedimentation Rate 107 mm/hr (0-10)
[2021-01-15 09:22] LABS: PROTEIN, TOTAL 6.4 g/dL (6.1-8.1)
[2021-01-15 14:42] LABS: ALPHA 1 GLOBULIN 0.4 g/dL (0.2-0.3); BETA 1 GLOBULIN 0.5 g/dL (0.4-0.6); BETA 2 GLOBULIN 0.5 g/dL (0.2-0.5); GAMMA GLOBULIN 1.1 g/dL (0.8-1.7)
[2021-01-15 15:12] LABS: KAPPA LIGHT CHAIN, FREE, SERUM 34.3 mg/L (3.3-19.4); KAPPA/LAMBDA LIGHT CHAINS FREE 0.75 (0.26-1.65); LAMBDA LIGHT CHAIN, FREE, SERU 45.7 mg/L (5.7-26.3)
--- NOTE | 2021-01-17 17:19 | ONC FU_ITS ---
Dr. Thompson Patient Follow-Up Note Patient: Trenton Sainz Unit #: [id number]: 1950 Dicatated By: Saqib Thompson M.D.Date of Visit:Jan 14, 2021 Onc Med Follow-up/Prog Note Chief Complaint: Anemia. History of Present Illness: This is a 71 year-old man with a mild chronic anemia. I had seen him initially on 04/14/2018. His records from the [place] included a CBC from 03/07/2018 showing hemoglobin 10.9 g with hematocrit 32.2%. The white blood cell count was 4100 and the platelet count was 296,000. Chem profile showed borderline renal function with BUN 14 and creatinine 1.21 mg/dL. Bilirubin was normal at 0.7 mg/dL with alkaline phosphatase normal at 82 U/L and SGOT and SGPT slightly elevated at 106 U/L and 74 U/L respectively. In reviewing his records in [facility], he had several blood counts in 2015, all showing mild anemia, hemoglobin 9-10 g, with white count and platelet counts in the low normal to mildly decreased range. The red cell indices were mildly macrocytic. A previous CBC from 07/15/2014 had shown hemoglobin just slightly low at 12.2 g with white blood cell count 9400 and platelet count 293,000. A CT abdomen/pelvis in August 2016 was unremarkable except for a fat-containing right inguinal hernia. There was evidence of fatty infiltration of the liver, but there was no splenomegaly noted. His laboratory studies in April 2018 included CBC showing hemoglobin 11.0 g, white blood cell count 6100, and platelet count 289,000. The red cell indices were mildly macrocytic. B12 level was in the low-normal range at 303 pg/mL. Serum iron studies show transferrin saturation 33.2% and ferritin was normal at 119 ng/mL. LDH was normal and protein electrophoresis studies were unrevealing. At that time he was having significant alcohol use and as he was just mildly anemic, and I had initially opted to just follow him on observation. On 01/27/2019 he presented to the emergency room with coffee-ground emesis and tarry stools. His hemoglobin had decreased to 8.4 g. He was transferred to [facility] for admission, where he subsequently was found to have 2 ruptures in the esophagus and an ulcer, as reported by his . He had an uneventful recovery, and at that point he did stop drinking. I had seen him for a follow-up visit on 04/05/2019. At that point he was just mildly anemic with hemoglobin 11.2 g. White blood cell count was normal at 7800 and his platelet count was normal at 312,000. He was seen for follow-up again on 07/09/2019 with hemoglobin stable at 11.4 g and transferrin saturation normal at 23.5%. He has multiple medical illnesses including hypertension, hyperlipidemia, cerebrovascular disease, hiatal hernia/GERD, benign prostatic hypertrophy, degenerative arthritis, and gout. He has additional history of alcohol related pancreatitis, and he has posttraumatic stress disorder with associated anxiety/depression. He is a nonsmoker. [facility] INTERIM HISTORY: I had seen him for a follow-up visit again in June 2020. At that point his hemoglobin was up to 12.8 g with normal white blood cell count at 5700 and normal platelet count of 261,000. His red cell indices were still mildly macrocytic. Comprehensive metabolic profile was unremarkable except for slightly elevated SGOT at 49/40 U/L. His serum iron studies actually showed elevated transferrin saturation at 62%. He continued on expectant management. He then had laboratory studies performed by Lina Gonzales on 12/08/2020. He was just mildly anemic with hemoglobin 11.1 g. The white blood cell count was slightly elevated at 11,800 and the platelet count was also elevated at 591,000. Comprehensive metabolic profile again showed a slightly elevated SGOT, but it was otherwise unremarkable. His sedimentation rate, though, was markedly elevated at greater than 130 mm/hour and the CRP was also significantly elevated at 135 mg/L, normal being less than 8.0. His B12 was normal at 532 pg/mL. RA titer was less than 14 IU/mL and his PSA was low at 1.8 ng/mL. He is seen for a followup visit. He has been feeling very weak generally, and he has lost weight. By our scale he is down close to 20 pounds. He is mostly sedentary. ECOG score is 3. He does not have fever or night sweats. He has some allergy related sinus symptoms. He does brings up clear phlegm with it. He does not complain of shortness of breath or chest pain. He has not been having nausea. He does have some acid reflux and he recently had a flareup of constipation. He has urinary frequency and nocturia. He is having pain in his neck and back, which is new. He does not complain of headache. He does have some dizziness. He has a little bit of numbness in his hands. Medications: Allopurinol 1 Tablet (of 300 mg) Oral daily, Artificial Tears 1 drop(s) (of 1.4 %) Solution Ophthalmic b.i.d., Aspirin 1 Tablet (of 325 mg) Tablet, enteric coated Oral daily, Coenzyme Q10 1 Capsule Oral daily, EQ Omeprazole 1 - 2 Tablet (of 20 mg) Tablet, enteric coated Oral daily, Fluorouracil 1 (1 %) Cream Topical PRN, Gabapentin 1 Capsule (of 300 mg) Oral daily, Lisinopril 0.5 Tablet (of 20 mg) Oral daily PRN, Lovastatin 0.5 Tablet (of 10 mg) Oral daily, Magnesium 1 Capsule (of 400 mg) Oral b.i.d., Metoprolol Tartrate 0.5 Tablet (of 50 mg) Oral b.i.d., Multivitamin Adults 1 Tablet Oral daily, PARoxetine HCl 0.5 Tablet (of 40 mg) Oral daily, prednisoLONE Acetate 1 Drop(s) (of 1 %) Suspension Ophthalmic daily PRN, Tamsulosin HCl 2 Capsule (of 0.4 mg) Oral daily Allergies: No Known Allergies. Vital Signs: Performed on Jan 14, 2021 13:36 Height - 70.00 in Weight - 191.6 lbs (LOW) BSA - 2.05 sq.m BMI - 27.49 Temperature - 98.4 F Pulse - 110 /min (HIGH) Respiration - 18 /min BP - 150/86 mm(hg) (HIGH) O2 Sat - 98 % Pain - 9 Fatigue - 10 Physical Examination: Constitutional - He does not appear acutely ill, Eyes - Sclerae nonicteric. Conjunctivae clear, ENMT - No lesions noted in the oral cavity, Hematologic/Lymphatic - No cervical, clavicular, or axillary adenopathy, Respiratory - Lungs are clear with good air movement bilaterally, Cardiovascular - Heart rhythm is regular. There is a I/ systolic murmur. There is no gallop or rub noted, Abdomen - Soft. Liver is not enlarged. Spleen is not palpable. There is no abdominal mass or ascites noted and there is no inguinal adenopathy, Extremities - No edema, Integumentary - There is a raised skin lesion in the right caodaism area which appears suspicious for basal cell carcinoma, Neurologic - No focal neurologic deficits noted. Problem List: 1. Patient with mild chronic anemia. 2. In January 2019 he became more severely anemic in association with acute GI blood loss. 3. Hypertension, which appeared to be somewhat labile. 4. Hyperlipidemia. 5. Cerebrovascular disease with history of previous stroke. 6. Hiatal hernia/GERD. He has had associated esophageal stricture. 7. Benign prostatic hypertrophy. He also has had mildly elevated PSA level. 8. Degenerative arthritis. 9. Gout. 10. Posttraumatic stress disorder with anxiety/depression. Problems Addressed with this Encounter and Plan: 1. Patient with mild anemia, presumed to be alcohol related, as he had a history of significant alcohol use and he apparently also had associated pancreatitis. In January 2019 he became more severely anemic in association with acute GI blood loss. At that point he did stop drinking. During subsequent follow-up he had shown improvement in his blood counts and in his clinical status. On a repeat CBC from 12/08/2020 he was again found to be mildly anemic, hemoglobin 11.1 g. At that point he had also developed mild leukocytosis and mild thrombocytosis. More significantly, he had markedly elevated sed rate and CRP level, suggestive of an underlying inflammatory or malignant process. Along with that, he has had a significant decline in his performance status and he has been losing weight. He will have further laboratory studies today to include CBC, comprehensive metabolic profile, sed rate and CRP level, serum protein electrophoresis, quantitative immunoglobulin levels, and serum free light chain assay. If the findings are persistent, he will have further evaluation with repeat CT scans of the chest, abdomen, and pelvis and or bone marrow aspiration/biopsy, as indicated. 2. He has a skin lesion in the right caodaism area which appear suspicious for basal cell carcinoma. 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 Signed By: Saqib Thompson M.D. <<Signature on File>>
== END 2021-01-14 11:38 | disposition home or self-care (01) ==
PROVIDERS: PCP Family Medicine; Visit Provider Internal Medicine Medical Oncology
DX: D50.0 Iron deficiency anemia secondary to blood loss (chronic) (principal); I10 Essential (primary) hypertension; E78.5 Hyperlipidemia, unspecified; K44.9 Diaphragmatic hernia without obstruction or gangrene; K21.9 Gastro-esophageal reflux disease without esophagitis; N40.0 Benign prostatic hyperplasia without lower urinary tract symptoms; R97.20 Elevated prostate specific antigen [PSA]; M19.90 Unspecified osteoarthritis, unspecified site; M10.9 Gout, unspecified; F43.10 Post-traumatic stress disorder, unspecified; F41.9 Anxiety disorder, unspecified; F32.9 Major depressive disorder, single episode, unspecified; Z79.899 Other long term (current) drug therapy
CPT/HCPCS: 80053; 82728; 82784; 83540; 83550; 83883; 84155; 84165; 85025; 85651; 99215

== ENCOUNTER 2021-02-06 10:33 | Outpatient (CLI) | payer OTHER, SELFPAY ==
--- NOTE | 2021-02-06 11:00 | CT_ITS ---
WS: [id number] CT CHEST, ABDOMEN, AND PELVIS TECHNIQUE: Contrast-enhanced CT of the chest, abdomen, and pelvis with coronal and sagittal reformatt ed images. CLINICAL INFORMATION: MILD CHRONIC ANEMIA COMPARISON: CT December 04, 2019 DLP: [id number] scans at [facility] use at least one of these dose optimization techniques: automat ed exposure control; mA and/or kV adjustment per patient size (includes targeted exams where dose is matched to clinical indication); or iterative reconstruction. CT CHEST: Lungs are well aerated. No acute pulmonary infiltrates. No suspicious pulmonary parenchymal opacities . Tiny subpleural nodule left lower lobe measuring 3 mm. Calcified granuloma right upper lobe. No med iastinal or hilar lymphadenopathy. No axillary lymphadenopathy. Calcified hilar nodes. Mild aortic calcification. Normal caliber thoracic aorta. Coronary calcificati on. Moderate esophageal hiatal hernia. CT ABDOMEN AND PELVIS: Diffuse fatty infiltration of the liver. Mild splenomegaly measuring 13.3 CM. Normal pancreatic paren chymal enhancement. Adrenal glands are normal. Normal renal parenchymal enhancement. Mild bilateral r enal cortical atrophy. No hydronephrosis. Bilateral renal cysts the largest upper pole right kidney m easuring 4.1 CM. Normal caliber abdominal aorta. Mild aortic calcification. Sigmoid diverticulosis. No evidence of acu te diverticulitis. No evidence of small or large bowel obstruction. Heterogeneously enhancing enlarge d prostate measuring 5.4 x 4.6 cm. Mild diffuse bladder wall thickening can be seen with bladder outl et obstruction. No abdominal or pelvic lymphadenopathy. Fat-containing right inguinal hernia. Disc space narrowing w orse L5-S1. Chronic anterior wedging at L2. CT/CT chest abd pel w con* IMPRESSION: 1. Both lungs are well aerated. No acute pulmonary infiltrates. 2. Tiny 3 mm subpleural nodule left lower lobe unchanged from 2019. 3. No mediastinal or hilar lymphadenopathy. 4. Mild diffuse fatty infiltration of the liver. 5. Mild splenomegaly measuring 13.1 CM. 6. Upper pole right renal cyst measuring 4.1 CCM. 7. Moderate esophageal hiatal hernia. 8. Enlarged heterogeneously enhancing prostate with bladder outlet obstruction . Recommend correlation PSA.
[2021-02-06] MEDS: iohexol 300 mg/mL 50 mL Btl PO (11:11)
[2021-02-06] MEDS: iohexol 300 mg/mL 100 mL Btl IV (12:25)
== END 2021-02-06 10:34 | disposition home or self-care (01) ==
PROVIDERS: PCP Family Medicine; Visit Provider Internal Medicine Medical Oncology
DX: D64.9 Anemia, unspecified (principal); N40.0 Benign prostatic hyperplasia without lower urinary tract symptoms; K44.9 Diaphragmatic hernia without obstruction or gangrene; R16.1 Splenomegaly, not elsewhere classified; K76.0 Fatty (change of) liver, not elsewhere classified; R91.1 Solitary pulmonary nodule
CPT/HCPCS: 71260; 74177; Q9967

== ENCOUNTER 2021-06-08 08:00 | Outpatient (CLI) | payer OTHER, SELFPAY ==
[2021-06-08 09:38] LABS: Basophils # 0.1 10^3/uL (0.0-0.1); Basophils % 0.6 %; Eosinophils # 0.3 10^3/uL (0.0-0.8); Eosinophils % 3.3 %; Hematocrit 32.2 % (42.0-52.0); Hemoglobin 10.2 g/dL (11.7-16.6); Lymphocytes # 1.6 10^3/uL (0.8-4.8); Lymphocytes % 18.7 %; Mean Corpuscular HGB Conc 31.7 g/dL (30.0-36.0); Mean Corpuscular Hemoglobin 31.5 pg (28.0-34.0); Mean Corpuscular Volume 99.4 fl (80-94); Mean Platelet Volume 10.7 fL (7.4-10.4); Monocytes # 0.6 10^3/uL (0.2-0.9); Monocytes % 7.2 %; Neutrophils # 6.11 10^3/uL (1.8-7.7); Neutrophils % 69.9 %; Nucleated Red Blood Cells % 0 %; Platelet Count 369 10^3/cmm (130-400); Red Blood Count 3.24 10^6/uL (4.1-5.3); Red Cell Distribution Width 14.1 % (12.1-15.1); Reticulocyte % 2.7 % (0.5-2.0); White Blood Count 8.8 10^3/uL (4.0-10.0)
[2021-06-08 10:04] LABS: Alanine Aminotransferase < 5 U/L (0-41); Albumin Level 3.9 g/dL (3.5-5.2); Alkaline Phosphatase 127 IU/L (40-130); Aspartate Amino Transferase 14 U/L (0-40); Blood Urea Nitrogen 10 mg/dL (8-23); Calcium 8.8 mg/dL (8.5-10.5); Carbon Dioxide 27 mmol/L (22-29); Chloride 101 mmol/L (98-107); Ferritin 256 ng/mL (30-400); Glucose 96 mg/dL (65-115); Iron 38 ug/dL (59-158); Osmolality Calculated 285 mOsm/kg (285-295); Percent Saturation 13.7 % (20-50); Sodium 138 mmol/L (136-145); Total Bilirubin 0.3 mg/dL (0.15-1.2); Total Iron Binding Capacity 276 mcg/dl; Total Protein 6.9 g/dL (6.6-8.7); Unsaturated Iron Binding 238 ug/dL (112-347)
[2021-06-08 10:07] LABS: Anion Gap 14.3 (5-19); Potassium 4.3 mmol/L (3.5-5.1)
[2021-06-08 10:08] LABS: Lactate Dehydrogenase 160 U/L (135-225)
[2021-06-08 10:23] LABS: Slide Review Slide Review Perform
[2021-06-08 10:30] LABS: Erythrocyte Sedimentation Rate 59 mm/hr (0-10)
--- NOTE | 2021-06-11 06:37 | ONC FU_ITS ---
Dr. Thompson Patient Follow-Up Note Patient: Trenton Sainz Unit #: [id number]: 1950 Dicatated By: Saqib Thompson M.D.Date of Visit:Jun 08, 2021 Onc Med Follow-up/Prog Note Chief Complaint: Anemia. History of Present Illness: This is a 71 year-old man with a mild chronic anemia. I had seen him initially on 04/14/2018. His records from the [facility] included a CBC from 03/07/2018 showing hemoglobin 10.9 g with hematocrit 32.2%. The white blood cell count was 4100 and the platelet count was 296,000. Chem profile showed borderline renal function with BUN 14 and creatinine 1.21 mg/dL. Bilirubin was normal at 0.7 mg/dL with alkaline phosphatase normal at 82 U/L and SGOT and SGPT slightly elevated at 106 U/L and 74 U/L respectively. In reviewing his records in [facility], he had several blood counts in 2015, all showing mild anemia, hemoglobin 9-10 g, with white count and platelet counts in the low normal to mildly decreased range. The red cell indices were mildly macrocytic. A previous CBC from 07/15/2014 had shown hemoglobin just slightly low at 12.2 g with white blood cell count 9400 and platelet count 293,000. A CT abdomen/pelvis in August 2016 was unremarkable except for a fat-containing right inguinal hernia. There was evidence of fatty infiltration of the liver, but there was no splenomegaly noted. His laboratory studies in April 2018 included CBC showing hemoglobin 11.0 g, white blood cell count 6100, and platelet count 289,000. The red cell indices were mildly macrocytic. B12 level was in the low-normal range at 303 pg/mL. Serum iron studies show transferrin saturation 33.2% and ferritin was normal at 119 ng/mL. LDH was normal and protein electrophoresis studies were unrevealing. At that time he was having significant alcohol use and as he was just mildly anemic, and I had initially opted to just follow him on observation. On 01/27/2019 he presented to the emergency room with coffee-ground emesis and tarry stools. His hemoglobin had decreased to 8.4 g. He was transferred to [facility] for admission, where he subsequently was found to have 2 ruptures in the esophagus and an ulcer, as reported by his . He had an uneventful recovery, and at that point he did stop drinking. I had seen him for a follow-up visit on 04/05/2019. At that point he was just mildly anemic with hemoglobin 11.2 g. White blood cell count was normal at 7800 and his platelet count was normal at 312,000. He was seen for follow-up again on 07/09/2019 with hemoglobin stable at 11.4 g and transferrin saturation normal at 23.5%. He has multiple medical illnesses including hypertension, hyperlipidemia, cerebrovascular disease, hiatal hernia/GERD, benign prostatic hypertrophy, degenerative arthritis, and gout. He has additional history of alcohol related pancreatitis, and he has posttraumatic stress disorder with associated anxiety/depression. He is a nonsmoker. [facility] INTERIM HISTORY: I had seen him for a follow-up visit again in June 2020. At that point his hemoglobin was up to 12.8 g with normal white blood cell count at 5700 and normal platelet count of 261,000. His red cell indices were still mildly macrocytic. Comprehensive metabolic profile was unremarkable except for slightly elevated SGOT at 49/40 U/L. His serum iron studies actually showed elevated transferrin saturation at 62%. He continued on expectant management. He then had laboratory studies performed by Lina Gonzales on 12/08/2020. He was just mildly anemic with hemoglobin 11.1 g. The white blood cell count was slightly elevated at 11,800 and the platelet count was also elevated at 591,000. Comprehensive metabolic profile again showed a slightly elevated SGOT, but it was otherwise unremarkable. His sedimentation rate, though, was markedly elevated at greater than 130 mm/hour and the CRP was also significantly elevated at 135 mg/L, normal being less than 8.0. His B12 was normal at 532 pg/mL. RA titer was less than 14 IU/mL and his PSA was low at 1.8 ng/mL. I had seen him for a follow-up visit on 01/14/2021. At that point he remained mildly anemic with hemoglobin 10.2 g. Sed rate was still significantly elevated at 107 mm/hour. His serum iron studies showed borderline low transferrin saturation at 20%. There was no monoclonal protein detected on his protein electrophoresis. His CT scans of the chest, abdomen, and pelvis showed no acute findings. There is just mild splenomegaly. The prostate was noted to be enlarged and heterogeneously enhancing and there was associated bladder outlet obstruction. He is seen for a follow-up visit. He indicates he underwent left total knee arthroplasty in [place] 1 month ago. He still has limited activity following that surgery, though he is up and around. His ECOG score is 2. He has good appetite. He has no fever or night sweats. He has a little bit of cough. He does not complain of shortness of breath or chest pain. He has no GI complaints other than constipation, attributable to his pain medication. Bladder function has been adequate with medication. Other than the pain in his knee, which is not bad now, he also has been having some pain in the right shoulder. He does not complain of headache. He occasionally has dizziness. He has no numbness/paresthesia or other focal neurologic symptoms. Medications: Allopurinol 1 Tablet (of 300 mg) Oral daily, Artificial Tears 1 drop(s) (of 1.4 %) Solution Ophthalmic b.i.d., Aspirin 1 Tablet (of 325 mg) Tablet, enteric coated Oral daily, Coenzyme Q10 1 Capsule Oral daily, EQ Omeprazole 1 - 2 Tablet (of 20 mg) Tablet, enteric coated Oral daily, Fluorouracil 1 (1 %) Cream Topical PRN, Gabapentin 1 Capsule (of 300 mg) Oral daily, Lisinopril 0.5 Tablet (of 20 mg) Oral daily PRN, Lovastatin 0.5 Tablet (of 10 mg) Oral daily, Magnesium 1 Capsule (of 400 mg) Oral b.i.d., Metoprolol Tartrate 0.5 Tablet (of 50 mg) Oral b.i.d., Multivitamin Adults 1 Tablet Oral daily, PARoxetine HCl 0.5 Tablet (of 40 mg) Oral daily, prednisoLONE Acetate 1 Drop(s) (of 1 %) Suspension Ophthalmic daily PRN, Tamsulosin HCl 2 Capsule (of 0.4 mg) Oral daily Allergies: No Known Allergies. Vital Signs: Performed on Jun 08, 2021 08:37 Height - 70.00 in Weight - 223.4 lbs (HIGH) BSA - 2.19 sq.m BMI - 32.05 (HIGH) Temperature - 99.2 F (HIGH) Pulse - 76 /min Respiration - 18 /min BP - 115/73 mm(hg) O2 Sat - 97 % Pain - 0 Fatigue - 4 Physical Examination: Constitutional - He looks pretty good generally, Eyes - Sclerae nonicteric. Conjunctivae clear, ENMT - No lesions noted in the oral cavity, Hematologic/Lymphatic - No cervical, clavicular, or axillary adenopathy, Respiratory - Lungs are clear with some decrease in air movement bilaterally, Cardiovascular - Heart rhythm is regular. There is no murmur, gallop, or rub noted, Abdomen - Soft. Liver is not enlarged. Spleen is not palpable. There is no abdominal mass or ascites noted and there is no inguinal adenopathy, Extremities - No edema, Neurologic - No focal neurologic deficits noted. Lab/Imaging: Test performed on Jun 08, 2021 09:08 CRP, High Sensitivity 1.740 mg/dL Ferritin 256 ng/mL Iron 38 mcg/dL LDH (Total) 160 U/L Sodium 138 mmol/L Iron Binding Capacity (TIBC) 276 mcg/dl Potassium 4.3 mmol/L % Iron Saturation 13.7 % Chloride 101 mmol/L CO2 27 mmol/L UIBC 238 mcg/dL Anion Gap 14.3 BUN 10 mg/dL Creatinine 0.6 mg/dL Cr Clearance (Est) 159.5100 mL/min Glucose 96 mg/dL Osmolality - Calculated 285 mOsm/kg Calcium 8.8 mg/dL Protein, Total 6.9 g/dL Albumin 3.9 g/dL Globulin 3.0 g/dL Bilirubin, Total 0.3 mg/dL ALT (SGPT) < 5 U/L AST (SGOT) 14 U/L Alkaline Phosphatase 127 IU/L ESR (Sed Rate) 59 mm/hr Retic Count % 2.7 % WBC 8.8 10 3/uL RBC 3.24 10 6/uL HGB 10.2 g/dL HCT 32.2 % MCV 99.4 fl MCH 31.5 pg MCHC 31.7 g/dL RDW 14.1 % Platelet Count 369 10 3/cmm MPV 10.7 fL Neutrophils 6.11 10 3/uL Lymphocytes 1.6 10 3/uL Monocytes 0.6 10 3/uL Eosinophils 0.3 10 3/uL Basophils 0.1 10 3/uL Neutrophil % 69.9 % Lymphocyte % 18.7 % Monocyte % 7.2 % Eosinophil % 3.3 % Basophils % 0.6 % NRBC % 0 % CBC Slide Review Slide Review Perform SLIDE REIVEW AGREES WITH AUTOMATED RESULTS Problem List: 1. Patient with mild chronic anemia. 2. In January 2019 he became more severely anemic in association with acute GI blood loss. 3. Hypertension, which appeared to be somewhat labile. 4. Hyperlipidemia. 5. Cerebrovascular disease with history of previous stroke. 6. Hiatal hernia/GERD. He has had associated esophageal stricture. 7. Benign prostatic hypertrophy. He also has had mildly elevated PSA level. 8. Degenerative arthritis. 9. Gout. 10. Posttraumatic stress disorder with anxiety/depression. Problems Addressed with this Encounter and Plan: Patient with mild anemia, initially presumed to be alcohol related, as he had a history of significant alcohol use and he apparently also had associated pancreatitis. In January 2019 he became more severely anemic in association with acute GI blood loss. At that point he did stop drinking. During subsequent follow-up he had shown improvement in his blood counts and in his clinical status. On a repeat CBC from 12/08/2020 he was again found to be mildly anemic, hemoglobin 11.1 g. At that point he had also developed mild leukocytosis and mild thrombocytosis. More significantly, he had markedly elevated sed rate and CRP level, suggestive of an underlying inflammatory or malignant process. Along with that, he has had a significant decline in his performance status and he had been losing weight. His CT scans of the chest, abdomen, and pelvis showed no evidence of underlying malignancy or other acute process. He subsequently underwent an uncomplicated right total knee arthroplasty. At this point he remains mildly anemic. His sed rate and CRP have come down significantly. His serum iron studies show low transferrin saturation, consistent with iron deficiency. As such, he will begin oral iron supplementation. If he is not responding or tolerating it, he can then be given parenteral iron replacement. Signed By: Saqib Thompson M.D. <<Signature on File>>
== END 2021-06-08 08:01 | disposition home or self-care (01) ==
PROVIDERS: PCP Family Medicine; Visit Provider Internal Medicine Medical Oncology
DX: D64.9 Anemia, unspecified (principal); Z79.899 Other long term (current) drug therapy
CPT/HCPCS: 36415; 80053; 82728; 83540; 83550; 83615; 85025; 85045; 85651; 86141; 99214

== ENCOUNTER → 2022-02-03 09:14 | Outpatient (BNVA) | payer OTHER, SELFPAY | PROVIDERS: PCP Family Medicine; Referring Provider Family Medicine; Visit Provider Surgery | DX: Z86.010 Personal history of colon polyps (principal) | CPT/HCPCS: 99203 ==

== ENCOUNTER 2022-02-28 13:50 | Emergency (ER) | payer OTHER, SELFPAY ==
[2022-02-28 14:08] VITALS: BP 182/113; PULSE 130; RESP 22; O2SAT 99; BMI 29.5
[2022-02-28 14:16] VITALS: BP 182/113; PULSE 100; O2SAT 98
--- NOTE | 2022-02-28 14:18 | W.ED.MALEGU ---
HPI - Male Genitourinary General: Chief complaint: Urogenital-Male Stated complaint: cant urinate Time Seen by Provider: 02/28/22 14:11 Source: patient and family Mode of arrival: ambulatory Limitations: no limitations History of Present Illness: This patient presents to the emergency department accompanied by his spouse. He states over the past several days he has had difficulty emptying his bladder. He states he has urinary frequency and is up and down all the time urinating small amounts. He denies any fevers or chills. He does take blood pressure medicine as well as tamsulosin but does not take a diuretic. He states he previously saw a urologist several years ago for urinary issues and was prescribed tamsulosin at that time. He denies chest pain shortness of breath fevers chills abdominal pain etc. Associated symptoms: Reports dysuria; Deny nausea or vomiting Review of Systems Const: Denies: fever(s) or chills Eyes: Denies: change in vision ENMT: Denies: throat pain or odynophagia Card: Denies: chest pain, palpitations or irregular heart rhythm Resp: Denies: dyspnea, productive cough or non-productive cough GI: Denies: abdominal pain, nausea or vomiting : Reports: dysuria, urinary urgency, urinary hesitancy, urinary dribbling, difficulty starting urination and nocturia Skin/Breast: Denies: rash, pruritus or erythema Neuro: Denies: headache(s), numbness in extremities or weakness in extremities Psych: Denies: anxiety or depression Endo: Denies: polyuria or polydipsia PFS ED PFSH: Medical History GERD (gastroesophageal reflux disease) History of nonmelanoma skin cancer HTN (hypertension) Surgical History No pertinent past surgical history Social History Smoking and tobacco status: never smoked History of recent travel: No Physical Exam Narrative: EXAM NARRATIVE: Makes good eye contact. Speech is goal-directed. Answers questions appropriately. Const: COMMON NORMALS: no acute distress, patient oriented x3 and alert GENERAL APPEARANCE: cooperative NUTRITIONAL APPEARANCE: overweight HENMT: COMMON NORMALS: normocephalic, atraumatic and moist oral mucous membranes HEAD & SCALP: normocephalic and atraumatic Eye: COMMON NORMALS: Equal, round and reactive pupils present, EOMs intact bilaterally and conjunctivae normal CONJUNCTIVA: Yes conjunctivae normal PUPIL: Yes Equal, round and reactive pupils present Neck/C-Spine: COMMON NORMALS: full ROM, supple and no JVD Chest: COMMONS NORMALS: normal inspection of the chest and normal palpation of entire chest wall Resp: COMMON NORMALS: normal respiratory effort, No retractions, No use of accessory muscles and clear to auscultation bilaterally AUSCULTATION: clear to auscultation bilaterally Cardio: COMMON NORMALS: no JVD, regular rate, regular rhythm, No murmurs present (Cardio) and Peripheral pulses 2+ throughout RATE: regular rate RHYTHM: regular rhythm PERIPHERAL PULSES: Peripheral pulses 2+ throughout GI: COMMON NORMALS: Normal to inspection, nondistended, normoactive bowel sounds present, Soft to palpation, non-tender and no masses PALPATION: Yes Soft to palpation : COMMON NORMALS: Yes no CVA tenderness BLADDER/KIDNEY EXAM: Yes no CVA tenderness Back/Pelvis: COMMON NORMALS: no CVA tenderness, thoracic and lumbar spine normal to inspection, no thoracic nor lumbar tenderness and thoraco-lumbar ROM normal Extremity: COMMON NORMALS: normal to inspection, full ROM, capillary refill normal, no clubbing, cyanosis or edema, no calf tenderness and no pedal edema Neuro: COMMON NORMALS: patient oriented x3, moves all extremities, no focal motor deficits and no sensory deficits noted SENSORIUM/ORIENTATION: Yes alert CRANIAL NERVES: Yes CN normal except as noted Psych: COMMON NORMALS: mental status grossly normal and cooperative Skin: COMMON NORMALS: no rashes or lesions noted, no wounds and turgor normal GENERAL SKIN EXAM: no rashes or lesions noted and turgor normal Course Reevaluation(s): Reevaluation #1: Portable bedside ultrasound was used to visualize the urinary bladder. Using the phased array probe a relatively large amount of clear fluid was noted and what appears to be the urinary bladder. No obvious debris is noted within the bladder. This is after the patient spontaneously voided approximately 300 mL of urine. Patient appears to be having urinary retention after spontaneous void. Time: 14:31 Reevaluation #2: Patient's had at least 700 mL of urine output since Treadwell was placed. His urinalysis is reassuring. Additional history was forthcoming apparently he had had some dysuria last week and was seen at a primary care office who had prescribed him antibiotic. I suspect he was having some urinary retention either related to infection or as a primary etiology of his symptoms at that time. He was probably getting some overflow only and not completely emptying. I have recommended we leave the Treadwell in for the next 3 to 4 days. We will have them call the urologist who is he seen before tomorrow to get him in to remove his Treadwell and reevaluate him. We also discussed return precautions. Time: 15:44 Vital Signs: Vital signs: Vital Signs Pulse Rate 100 02/28/22 14:16 Respiratory Rate 22 H 02/28/22 14:08 Blood Pressure 182/113 02/28/22 14:16 Pulse Oximetry 98 02/28/22 14:16 MDM - Male Medical Decision Making Patient with a known history of BPH who was in urinary retention. Treadwell was placed with good results. Patient has no findings to suggest infection at this time and is otherwise clinically stable. We will leave the Treadwell and to allow complete bladder recovery and have him follow-up with urology later this week. Differential Diagnosis Likely acute retention of urine Medical Records I reviewed the patient's medical records. Lab Data I reviewed the patient's lab results. Laboratory Results Urine Color Straw (Yellow) 02/28/22 14:24 Urine Appearance Clear (CLEAR) 02/28/22 14:24 Urine pH 6.5 (5-7) 02/28/22 14:24 Ur Specific [place] 1.000 (1.005-1.030) L 02/28/22 14:24 Urine Protein Neg (Negative) 02/28/22 14:24 Urine Glucose (UA) Norm (Normal) 02/28/22 14:24 Urine Ketones Negative (Negative) 02/28/22 14:24 Urine Blood Neg (Negative) 02/28/22 14:24 Urine Nitrate Negative (Negative) 02/28/22 14:24 Urine Bilirubin Neg (Negative) 02/28/22 14:24 Urine Urobilinogen Norm mg/dL (Negative) 02/28/22 14:24 Ur Leukocyte Esterase Negative (Negative) 02/28/22 14:24 Discharge Plan Discharge Patient Disposition: Home Clinical Impression: Acute retention of urine Condition: Stable Prescriptions: No Action carvedilol 12.5 mg tablet 12.5 mg PO BID 0RF Rx Instructions: must administer with a meal/food aspirin 325 mg tablet 325 mg PO DAILY 0RF fluorouracil 5 % cream 1 applic topical BID 0RF guaifenesin 400 mg tablet 400 mg PO Q4H 0RF mupirocin calcium 2 % cream 1 applic topical BID 0RF omeprazole 40 mg capsule,delayed release(DR/EC) 40 mg PO DAILY 0RF paroxetine HCl 40 mg tablet 40 mg PO DAILY 0RF tamsulosin 0.4 mg capsule 0.4 mg PO DAILY 0RF meloxicam [Mobic] 15 mg tablet 15 mg PO DAILY Qty: 30 0RF allopurinol 300 mg tablet 150 mg PO DAILY 0RF folic acid 1 mg tablet 1 mg PO DAILY 0RF gabapentin 300 mg capsule 300 mg PO DAILY 0RF lisinopril 10 mg tablet 10 mg PO DAILY 0RF multivitamin with iron Tablet 1 tab PO DAILY 0RF thiamine HCl (vitamin B1) 100 mg tablet 100 mg PO DAILY 0RF lorazepam 0.5 mg tablet 0.5 mg PO Q8H PRN (Reason: alcohol withdrawal) Qty: 20 0RF Protonix 40 mg tablet,delayed release (DR/EC) 40 mg PO DAILY Qty: 30 0RF Discharge Orders: Discharge ED (Routine); Ordered 02/28/22 Ordered By: Osmin Bess Referrals: Sharif Sheriff MD [Physician] - 4-7 days (Patient was seen in ED for acute retention.) Dodie Frias MD [Primary Care Provider] - Discharge Diet: Usual diet Discharge Activity: Increase activity as tolerated Patient Instructions: Opioid Safety Activity Restrictions/Additional Instructions: Maintain the catheter until you are seen by the urologist. Call the urologist office in the morning to arrange an appointment for later this week. If you have worsening symptoms return to this or the nearest emergency department. Continue all your usual medications. Coding Level of Care Code ED Manager Scheduling for Moe Anand Exam Comprehensive
--- NOTE | 2022-02-28 14:27 | PC.NURSE ---
Patient voided 300ml of urine in urinal prior to being seen by doctor
[2022-02-28 14:35] LABS: Add Urine Microscopic? NO; Charge for UA Resulting for Rev
--- NOTE | 2022-02-28 14:45 | PC.NURSE ---
After placing hollingsworth patient voided 700ml of urine. Light yellow color, no foul odor.
[2022-02-28 14:50] LABS: Bilirubin Urine Neg (Negative); Blood Urine Neg (Negative); Glucose Urine UA Norm (Normal); Ketones Urine Negative (Negative); Leukocyte Esterase Urine Negative (Negative); Nitrate Urine Negative (Negative); Protein Urine Neg (Negative); Urine Appearance Clear (CLEAR); Urine Color Straw (Yellow); Urobilinogen Urine Norm (Negative); pH Urine 6.5 (5-7)
== END 2022-02-28 16:43 | disposition home or self-care (01) ==
PROVIDERS: Emergency Provider Emergency Medicine; PCP Family Medicine
DX: N40.1 Benign prostatic hyperplasia with lower urinary tract symptoms (principal); R33.8 Other retention of urine
CPT/HCPCS: 81003; 99283

== ENCOUNTER 2022-03-03 17:12 | Emergency (ER) | payer OTHER, SELFPAY ==
[2022-03-03 17:23] VITALS: BP 103/57; PULSE 104; RESP 18; TEMP 36.8; O2SAT 97; BMI 29.5
--- NOTE | 2022-03-03 18:24 | W.ED.MALEGU ---
HPI - Male Genitourinary General: Chief complaint: Urogenital-Male Stated complaint: Cannot urinate Time Seen by Provider: 03/03/22 18:22 History of Present Illness: 72-year-old male patient comes in today for complaints of poor urine output. Patient had a Treadwell catheter placed on Tuesday in the emergency department for acute urinary retention. Patient reports he is only had about 600 mL out for the last 24 hours. Patient is concerned that it has become blocked. Patient does report some discomfort in the penis and pelvic area. Patient appears in no distress. Patient appears chronically ill. Patient appears in mild pain. Review of Systems General: Reports: 10 or more systems reviewed and unremarkable except in HPI and below Const: Denies: fever(s) Card: Denies: chest pain Resp: Denies: dyspnea : Reports: difficulty urinating [facility] ED PFSH: Medical History GERD (gastroesophageal reflux disease) History of nonmelanoma skin cancer HTN (hypertension) Surgical History No pertinent past surgical history Social History Smoking and tobacco status: never smoked History of recent travel: No Physical Exam Const: COMMON NORMALS: alert HENMT: COMMON NORMALS: normocephalic HEAD & SCALP: normocephalic Neck/C-Spine: COMMON NORMALS: full ROM Resp: COMMON NORMALS: normal respiratory effort and clear to auscultation bilaterally AUSCULTATION: clear to auscultation bilaterally Cardio: COMMON NORMALS: regular rate RATE: regular rate GI: COMMON NORMALS: Soft to palpation AUSCULTATION: Yes normoactive bowel sounds PALPATION: Yes Soft to palpation : COMMON NORMALS: Yes no CVA tenderness BLADDER/KIDNEY EXAM: Yes no CVA tenderness MEATUS: meatal discharge and Erythema at meatus Back/Pelvis: COMMON NORMALS: no CVA tenderness Neuro: SENSORIUM/ORIENTATION: Yes alert Skin: COMMON NORMALS: no rashes or lesions noted GENERAL SKIN EXAM: no rashes or lesions noted Course Vital Signs: Vital signs: Vital Signs Temperature 98.2 F 03/03/22 17:23 Pulse Rate 104 H 03/03/22 17:23 Respiratory Rate 18 03/03/22 17:23 Blood Pressure 103/57 03/03/22 17:23 Pulse Oximetry 97 03/03/22 17:23 MDM - Male Medical Decision Making Patient comes in today for concerns of poor urine output. On exam abdomen was soft with no palpable masses. Bowel sounds were present. Vital signs were normal. Patient had a urinary catheter placed Tuesday evening and it had been working fine until today he had increased discomfort. Differential diagnosis includes acute urinary retention, UTI, urinary Treadwell cath dysfunction. Bladder scan noted no significant amounts of urine in the bladder. Urinalysis had increased white blood cells and red blood cells in the urinary bladder. White blood cell count was 8.7, remainder of labs were insignificant and without significant change from prior exams. Patient be treated for a catheter associated urinary tract infection with Cipro 1 500 mg twice a day for 7 days. Patient has an appointment scheduled for urology next Tuesday. Patient should continue with routine care of the catheter follow-up with primary care for further instructions return to ER for new concerns. Patient reported understanding along with spouse. Lab Data : 03/03/22 20:15 03/03/22 20:15 Laboratory Results WBC 8.7 10^3/uL (4.0-10.0) 03/03/22 20:15 RBC 3.14 10^6/uL (4.1-5.3) L 03/03/22 20:15 Hgb 11.1 g/dL (11.7-16.6) L 03/03/22 20:15 Hct 33.5 % (42.0-52.0) L 03/03/22 20:15 MCV 106.7 fl (80-94) H 03/03/22 20:15 MCH 35.4 pg (28.0-34.0) H 03/03/22 20:15 MCHC 33.1 g/dL (30.0-36.0) 03/03/22 20:15 RDW 14.5 % (12.1-15.1) 03/03/22 20:15 Plt Count 328 10^3/cmm (130-400) 03/03/22 20:15 MPV 10.9 fL (7.4-10.4) H 03/03/22 20:15 Neut % (Auto) 70.6 % 03/03/22 20:15 Lymph % (Auto) 19.0 % 03/03/22 20:15 [place] % (Auto) 7.6 % 03/03/22 20:15 Eos % (Auto) 1.7 % 03/03/22 20:15 Baso % (Auto) 0.8 % 03/03/22 20:15 Neut # (Auto) 6.14 10^3/uL (1.8-7.7) 03/03/22 20:15 Lymph # (Auto) 1.7 10^3/uL (0.8-4.8) 03/03/22 20:15 [place] # (Auto) 0.7 10^3/uL (0.2-0.9) 03/03/22 20:15 Eos # (Auto) 0.2 10^3/uL (0.0-0.8) 03/03/22 20:15 Baso # (Auto) 0.1 10^3/uL (0.0-0.1) 03/03/22 20:15 Nucleated RBC % (auto) 0 % 03/03/22 20:15 Nucleated RBCs # 0.0 /100WBC 03/03/22 20:15 Sodium 140 mmol/L (136-145) 03/03/22 20:15 Potassium 3.5 mmol/L (3.5-5.1) 03/03/22 20:15 Chloride 100 mmol/L (98-107) 03/03/22 20:15 Carbon Dioxide 28 mmol/L (22-29) 03/03/22 20:15 Anion Gap 15.5 (5-19) 03/03/22 20:15 BUN 8 mg/dL (8-23) 03/03/22 20:15 Creatinine 0.7 mg/dL (0.7-1.2) 03/03/22 20:15 GFR Calculation Not Reportable 03/03/22 20:15 Glucose 103 mg/dL (65-115) 03/03/22 20:15 Calculated Osmolality 289 mOsm/kg (285-295) 03/03/22 20:15 Calcium 8.6 mg/dL (8.5-10.5) 03/03/22 20:15 Urine Color Yellow (Yellow) 03/03/22 19:42 Urine Appearance Hazy (CLEAR) A 03/03/22 19:42 Urine pH 7 (5-7) 03/03/22 19:42 Ur Specific [place] 1.005 (1.005-1.030) 03/03/22 19:42 Urine Protein Trace (Negative) 03/03/22 19:42 Urine Glucose (UA) Norm (Normal) 03/03/22 19:42 Urine Ketones Negative (Negative) 03/03/22 19:42 Urine Blood 3+ (Negative) H 03/03/22 19:42 Urine Nitrate Negative (Negative) 03/03/22 19:42 Urine Bilirubin Neg (Negative) 03/03/22 19:42 Urine Urobilinogen Norm mg/dL (Negative) 03/03/22 19:42 Ur Leukocyte Esterase 2+ (Negative) H 03/03/22 19:42 Urine RBC 15-25 /hpf (0-2) H 03/03/22 19:42 Urine WBC 15-25 /hpf (0-5) H 03/03/22 19:42 Ur Squamous Epith Cells 0-4 /hpf (0-5) H 03/03/22 19:42 Amorphous Sediment Not Reportable 03/03/22 19:42 Urine Bacteria Trace /hpf (NONE) 03/03/22 19:42 Urine Mucus Trace /hpf 03/03/22 19:42 Discharge Plan Discharge Patient Disposition: Home Clinical Impression: Acute retention of urine Urinary tract infection Qualifiers: Urinary tract infection type: catheter-associated UTI Indwelling urinary catheter type: indwelling urethral catheter Encounter type: initial encounter Qualified Code(s): T83.511A - Infection and inflammatory reaction due to indwelling urethral catheter, initial encounter Condition: Stable Prescriptions: New ciprofloxacin HCl 500 mg tablet 500 mg PO BID Qty: 14 0RF phenazopyridine 100 mg tablet 100 mg PO Q8H Qty: 6 0RF No Action carvedilol 12.5 mg tablet 12.5 mg PO BID 0RF Rx Instructions: must administer with a meal/food aspirin 325 mg tablet 325 mg PO DAILY 0RF fluorouracil 5 % cream 1 applic topical BID 0RF guaifenesin 400 mg tablet 400 mg PO Q4H 0RF mupirocin calcium 2 % cream 1 applic topical BID 0RF omeprazole 40 mg capsule,delayed release(DR/EC) 40 mg PO DAILY 0RF paroxetine HCl 40 mg tablet 40 mg PO DAILY 0RF tamsulosin 0.4 mg capsule 0.4 mg PO DAILY 0RF meloxicam [Mobic] 15 mg tablet 15 mg PO DAILY Qty: 30 0RF allopurinol 300 mg tablet 150 mg PO DAILY 0RF folic acid 1 mg tablet 1 mg PO DAILY 0RF gabapentin 300 mg capsule 300 mg PO DAILY 0RF lisinopril 10 mg tablet 10 mg PO DAILY 0RF multivitamin with iron Tablet 1 tab PO DAILY 0RF thiamine HCl (vitamin B1) 100 mg tablet 100 mg PO DAILY 0RF lorazepam 0.5 mg tablet 0.5 mg PO Q8H PRN (Reason: alcohol withdrawal) Qty: 20 0RF Protonix 40 mg tablet,delayed release (DR/EC) 40 mg PO DAILY Qty: 30 0RF Discharge Orders: Discharge ED (Routine); Ordered 03/03/22 Ordered By: Reza Pfeiffer Referrals: Dodie Frias MD [Primary Care Provider] - Discharge Diet: Usual diet Discharge Activity: Increase activity as tolerated Patient Instructions: Catheter-associated Urinary Tract Infection (ED) Activity Restrictions/Additional Instructions: Drink plenty of water. Take antibiotic as directed. Follow-up with primary care in 2 days for recheck. Case management should contact you regarding follow-up appointment with urologist. Return to ER for worsening symptoms or new concerns. Coding Level of Care Code ED Product Management Internship for Moe Fwd Exam Comprehensive
[2022-03-03] MEDS: phenazopyridine 100 mg Tablet PO (20:03)
[2022-03-03] MEDS: LORazepam 0.5 mg Tablet PO (20:03)
[2022-03-03 20:10] LABS: Add Urine Microscopic? YES; Bilirubin Urine Neg (Negative); Blood Urine 3+ (Negative); Glucose Urine UA Norm (Normal); Ketones Urine Negative (Negative); Leukocyte Esterase Urine 2+ (Negative); Nitrate Urine Negative (Negative); Protein Urine Trace (Negative); Specific Gravity, Urine 1.005 (1.005-1.030); Urine Appearance Hazy (CLEAR); Urine Color Yellow (Yellow); Urobilinogen Urine Norm (Negative); pH Urine 7 (5-7)
[2022-03-03 20:17] LABS: RBC Urine 15-25 /hpf (0-2); Squamous Epithelial Cell Urine 0-4 /hpf (0-5); WBC Urine 15-25 /hpf (0-5)
[2022-03-03 20:18] LABS: Add Urine Culture? Yes; Bacteria Urine TRACE /hpf; Mucus Urine TRACE /hpf
[2022-03-03 20:23] LABS: Basophils # 0.1 10^3/uL (0.0-0.1); Basophils % 0.8 %; Eosinophils # 0.2 10^3/uL (0.0-0.8); Eosinophils % 1.7 %; Hematocrit 33.5 % (42.0-52.0); Hemoglobin 11.1 g/dL (11.7-16.6); Lymphocytes # 1.7 10^3/uL (0.8-4.8); Mean Corpuscular HGB Conc 33.1 g/dL (30.0-36.0); Mean Corpuscular Hemoglobin 35.4 pg (28.0-34.0); Mean Corpuscular Volume 106.7 fl (80-94); Mean Platelet Volume 10.9 fL (7.4-10.4); Monocytes # 0.7 10^3/uL (0.2-0.9); Monocytes % 7.6 %; Neutrophils # 6.14 10^3/uL (1.8-7.7); Neutrophils % 70.6 %; Nucleated Red Blood Cells % 0 %; Platelet Count 328 10^3/cmm (130-400); Red Blood Count 3.14 10^6/uL (4.1-5.3); Red Cell Distribution Width 14.5 % (12.1-15.1); White Blood Count 8.7 10^3/uL (4.0-10.0)
[2022-03-03 20:41] LABS: Anion Gap 15.5 (5-19); Blood Urea Nitrogen 8 mg/dL (8-23); Calcium 8.6 mg/dL (8.5-10.5); Carbon Dioxide 28 mmol/L (22-29); Chloride 100 mmol/L (98-107); Glucose 103 mg/dL (65-115); Osmolality Calculated 289 mOsm/kg (285-295); Potassium 3.5 mmol/L (3.5-5.1); Sodium 140 mmol/L (136-145)
[2022-03-03] MEDS: sodium chloride 0.9% 500 ML 999 ML IV (20:56)
[2022-03-03] MEDS: ciprofloxacin 500 mg Tablet PO (21:34)
[2022-03-03 21:49] VITALS: BP 153/95; PULSE 95; RESP 18; O2SAT 98
--- NOTE | 2022-03-04 12:39 | DCPLANNER ---
Addendum entered by Dayan Martins 03/16/22 08:45: Patient had a follow up appointment scheduled for 03.10.22 with urology - patient did attend appointment. Addendum entered by Dayan Martins 03/07/22 10:36: Patient has a follow up appointment scheduled for Tuesday, March 10, 2022 at 9:00 with urology. Clinic will call patient with appointment information. Original Note: energy manager had message to schedule a followup appointment for patient with urology. energy manager sent patients information to the front office staff at urology. Patients information will be printed and reviewed. Clinic will call patient with appointment information.
== END 2022-03-03 21:43 | disposition home or self-care (01) ==
PROVIDERS: Emergency Provider Nurse Practitioner Family; PCP Family Medicine
DX: N39.0 Urinary tract infection, site not specified (principal); R33.9 Retention of urine, unspecified; I10 Essential (primary) hypertension; T83.511A Infection and inflammatory reaction due to indwelling urethral catheter, initial encounter; Y82.8 Other medical devices associated with adverse incidents
CPT/HCPCS: 51798; 80048; 81001; 85025; 87086; 96360; 99284; J7040

== ENCOUNTER → 2022-03-10 08:35 | Outpatient (BNVA) | payer OTHER, SELFPAY | PROVIDERS: PCP Family Medicine; Visit Provider Nurse Practitioner Family | DX: R33.9 Retention of urine, unspecified (principal) | CPT/HCPCS: 51700; 51741; 51798; 99203; 99213 ==

== ENCOUNTER 2022-04-15 06:14 | Day surgery (SDC) | payer OTHER, SELFPAY ==
[2022-04-13 14:04] VITALS: BMI 28.7
[2022-04-15 06:41] VITALS: BP 184/94; PULSE 108; RESP 18; TEMP 36.9; O2SAT 93
[2022-04-15] MEDS: sodium chloride 0.9% 1,000 ML 30 ML IV (06:51)
--- NOTE | 2022-04-15 07:25 | W.PM.OPSFHP ---
Same Day Surgery H&P Indication for Procedure/HPI DATE OF PROCEDURE: April 15, 2022 CHIEF COMPLAINT/INDICATIONFOR SURGICAL PROCEDURE: History of colon polyps PREOP DIAGNOSIS: History of colon polyps PLANNED PROCEDURE: Operation Date: 04/15/22 08:00 Proposed Procedures p Colonoscopy 24600/z86.010(Not Applicable) - Seth Rutherford MD 02/03/2022 This is a pleasant 72 years old gentleman referred to my practice with history of colon polyps and he comes today to discuss surveillance colonoscopy.? He denies bleeding per rectum or history of colon cancer. 04/15/2022 Patient comes today for surveillance colonoscopy ROS All systems have been reviewed negative except as for the above or per problem list. Medications/Allergies* Home Medications Medication Instructions Recorded Confirmed Type aspirin 325 mg tablet 325 mg PO DAILY 03/04/21 04/15/22 History carvedilol 12.5 mg tablet 12.5 mg PO BID 03/04/21 04/15/22 History guaifenesin 400 mg tablet 400 mg PO Q4H 03/04/21 04/15/22 History omeprazole 40 mg capsule,delayed 40 mg PO DAILY 03/04/21 04/14/22 History release allopurinol 300 mg tablet 300 mg PO DAILY 02/03/22 04/15/22 History folic acid 1 mg tablet 1 mg PO DAILY 02/03/22 04/14/22 History gabapentin 300 mg capsule 300 mg PO DAILY 02/03/22 04/14/22 History lisinopril 10 mg tablet 10 mg PO DAILY 02/03/22 04/14/22 History multivitamin with iron 1 tab PO DAILY 02/03/22 04/14/22 History thiamine HCl (vitamin B1) 100 mg 100 mg PO DAILY 02/03/22 04/14/22 History tablet paroxetine HCl 40 mg tablet 40 mg PO DAILY 04/15/22 04/15/22 History Allergies/Adverse Reactions Allergy/AdvReac Type Severity Reaction Status Date / Time No Known Allergies Allergy Verified 04/15/22 07:26 Current Medications: Generic Name Dose Route Start Last Admin Trade Name Freq PRN Reason Stop Dose Admin Sodium Chloride 1,000 mls @ 30 mls/hr 04/15/22 06:30 04/15/22 06:51 Sodium Chloride 0.9% IV 04/16/22 06:29 30 mls/hr .Q24H PRAVEENA Administration Pertinent History/Comorbid Conditions* Medical History (Updated 03/11/22 @ 00:01 by ) GERD (gastroesophageal reflux disease) History of nonmelanoma skin cancer HTN (hypertension) Surgical History (Updated 03/10/22 @ 11:49 by Yenifer Da Silva APRN) History of ankle surgery History of colonoscopy with polypectomy History of knee replacement History of surgery on arm 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 jewish No pertinent past surgical history Family History (Updated 03/10/22 @ 08:53 by Jay Pascual) Father, at age 54 Mother, at age 89 Mini stroke Mother Cancer Father Throat Social History Smoking and tobacco status: never smoked Alcohol intake: current Alcohol intake frequency: few times a month Caregiver/support person: Yes Lives independently: Yes Marital status: Single Current occupational status: retired History of recent travel: No Pertinent Exam Findings alert, oriented x 3, regular rate & rhythm and procedure specific exam findings (Abdominal exam nontender nondistended soft) Recommendations Surgery/Procedure today (Surveillance colonoscopy) Coding Level of Care Code Acute Financial Investment Adviser for Moe Anand
--- NOTE | 2022-04-15 08:01 | P.ANESASSM_ITS ---
Pre-Anesthetic Assessment Height/Weight: Height 1.78 m Weight 90.718 kg Temp Pulse Resp BP Pulse Ox 98.4 F 108 H 18 184/94 93 04/15/22 06:41 04/15/22 06:41 04/15/22 06:41 04/15/22 06:41 04/15/22 06:41 Preop Diagnosis: History of colon polyps Operation Date: 04/15/22 08:00 Proposed Procedures p Colonoscopy 06522/[id number](Not Applicable) - Seth Rutherford MD Familial anesthetic complications: none Was Beta Jorge taken within 24 hours: Yes Was Clonidine taken within 24 hours: N/A Last intake: Intake Last Liquid Date 04/14/22 Last Liquid Time 20:00 Last Solid Date 04/14/22 Last Solid Time 11:00 Social Alcohol and No tobacco Exam alert, oriented x 3, clear to auscultation bilaterally and regular rate & rhythm Airway Submandibular: within normal limits Cervical ROM: within normal limits Mallampati: Class II Dentition: chipped CV/HEM Congestive Heart Failure and Hypertension GI Gastroesophageal Reflux Disease [facility] Osteoarthritis/DJD Neuropsych Depression Anesthetic Plan ASA status: 3 Anesthesia: MAC Medications/Allergies Home Medications Medication Instructions Recorded Confirmed Last Taken Type aspirin 325 mg tablet 325 mg PO DAILY 03/04/21 04/15/22 04/12/22 History carvedilol 12.5 mg tablet 12.5 mg PO BID 03/04/21 04/15/22 04/14/22 15:00 History guaifenesin 400 mg tablet 400 mg PO Q4H 03/04/21 04/15/22 04/14/22 History omeprazole 40 mg capsule,delayed 40 mg PO DAILY 03/04/21 04/14/22 04/13/22 History release allopurinol 300 mg tablet 300 mg PO DAILY 02/03/22 04/15/22 04/14/22 History folic acid 1 mg tablet 1 mg PO DAILY 02/03/22 04/14/22 04/13/22 History gabapentin 300 mg capsule 300 mg PO DAILY 02/03/22 04/14/22 04/13/22 History lisinopril 10 mg tablet 10 mg PO DAILY 02/03/22 04/14/22 04/14/22 History multivitamin with iron 1 tab PO DAILY 02/03/22 04/14/22 04/13/22 History thiamine HCl (vitamin B1) 100 mg 100 mg PO DAILY 02/03/22 04/14/22 04/13/22 History tablet paroxetine HCl 40 mg tablet 40 mg PO DAILY 04/15/22 04/15/22 04/13/22 History Allergies Allergy/AdvReac Type Severity Reaction Status Date / Time No Known Allergies Allergy Verified 04/15/22 07:26 Current Medications Generic Name Dose Route Start Last Admin Trade Name Bretq PRN Reason Stop Dose Admin Sodium Chloride 1,000 mls @ 30 mls/hr 04/15/22 06:30 04/15/22 06:51 Sodium Chloride 0.9% IV 04/16/22 06:29 30 mls/hr .Q24H PRAVEENA Administration PFSH Anesthesia Medical History GERD (gastroesophageal reflux disease) History of nonmelanoma skin cancer HTN (hypertension) Surgical History History of ankle surgery History of colonoscopy with polypectomy History of knee replacement History of surgery on arm 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
--- NOTE | 2022-04-15 08:22 | ANE.PACU2 ---
Inpatient post-anesthesia follow up: Airway intact: Yes Vital signs: Temperature 98.4 F Pulse Rate 108 Respiratory Rate 18 Blood Pressure 184/94 Pulse Oximetry 93 Oxygen Delivery Me thod Room Air Oxygen Flow Rate Fraction of Inspir ed Oxygen Hydration adequate: Yes Nausea and vomiting: No Pain level: 1 Mental status: Baseline
[2022-04-15 08:23] VITALS: BP 119/72; PULSE 82; RESP 12; TEMP 36.6; O2SAT 91
[2022-04-15 08:38] VITALS: BP 124/75; PULSE 81; RESP 16; O2SAT 98
== END 2022-04-15 08:50 | disposition home or self-care (01) ==
PROVIDERS: PCP Family Medicine; Visit Provider Surgery
PROC: 0DJD8ZZ Inspection of Lower Intestinal Tract, Via Natural or Artificial Opening Endoscopic (ICD-10-PCS; CPT 45378; principal; 2022-04-15 08:00)
DX: Z12.11 Encounter for screening for malignant neoplasm of colon (principal); K57.30 Diverticulosis of large intestine without perforation or abscess without bleeding; Z86.010 Personal history of colon polyps; Z79.82 Long term (current) use of aspirin; K21.9 Gastro-esophageal reflux disease without esophagitis; I10 Essential (primary) hypertension; I11.0 Hypertensive heart disease with heart failure; I50.9 Heart failure, unspecified
CPT/HCPCS: 45378; J2704; J7030

== ENCOUNTER 2022-05-14 11:56 | Observation (INO) | payer OTHER, MEDICARE, SELFPAY ==
[2022-05-14] VITALS (9 sets, daily range): BP systolic 103–171; BP diastolic 70–96; PULSE 74–111; RESP 16–19; TEMP 36.8; O2SAT 95–98; BMI 27.9
--- NOTE | 2022-05-14 12:02 | ECG_ITS ---
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 Measurements Intervals [place] Rate: 82 P: 44 IA: 195 QRS: 74 QRSD: 143 T: 30 QT: 433 QTc: 507 Interpretive Statements SINUS RHYTHM WITH OCCASIONAL SUPRAVENTRICULAR PREMATURE COMPLEXES RIGHT BUNDLE BRANCH BLOCK [120+ ms QRS DURATION, UPRIGHT V1, 40+ ms S IN I/aVL/V4/V5/V6] Compared to ECG 12/04/2019 10:05:05 Ventricular premature complex(es) no longer present Electronically Signed On 05-14-2022 12:23:09 CDT by Mari Robles M.D. [id number]
--- NOTE | 2022-05-14 12:02 | XR_ITS ---
WS: [id number] Portable AP upright chest, 05/14/2022 Clinical Data: dyspnea/cough Comparison: Portable chest, 12/04/2019. Findings: No nodules, masses or effusions are seen. The heart is normal. The pulmonary vascularity is not increased. No pneumonia or pneumothorax is seen. There is a healed left sixth rib fracture. The aortic arch and descending thoracic aorta show minimal calcification and tortuosity. There is a heale d impacted fracture of the left humeral neck and head. XR/XR chest 1V portable [id number] Impression: Atherosclerosis.
--- NOTE | 2022-05-14 12:04 | ED_ITS ---
HPI - General Adult General: Chief complaint: Dizziness Stated complaint: Dizziness Time Seen by Provider: 05/14/22 11:56 Source: patient and EMS Mode of arrival: EMS History of Present Illness: 72-year-old male presents emergency room with complaints of dizziness frequent falls. Patient is a lifelong heavy drinker he is cut back to the point recently drinking a pint a day used to drink more than 1/5/day. He denies any chest pain or weakness. He was seen [facility] and had orthostatics done and was found to be significantly orthostatic with blood pressures dropped into the 90s systolic from 140s going from lying to standing. He is completely asymptomatic at this time denies changing any medications recently. He denies chest pain or shortness of breath or abdominal pain he has been somewhat dizzy and has frequent falls. Although these have been present for an extended period of time and not significantly changed recently. In January 2019 patient has had an esophageal ulcer with perforation x2 related to his drinking. This required surgical repair. Onset (ago): year(s) Relieving factors: none Exacerbating factors: none Associated symptoms: Deny chest pain, confusion, cough, diaphoresis, decreased appetite, dyspnea, fevers/chills, headache(s), malaise, nausea, rash, palpitations, seizures, short of breath, syncope, vomiting or weakness Treatments prior to arrival: none Review of Systems Const: Denies: malaise or diaphoresis ENMT: Denies: throat pain, ear or mastoid pain, nasal discharge or nasal congestion Card: Denies: chest pain, palpitations or syncope Resp: Denies: dyspnea GI: Denies: nausea or vomiting : Denies: flank pain, dysuria, urinary frequency or urinary urgency Skin/Breast: Denies: rash Neuro: Denies: headache(s) or confusion PFSH ED PFSH: Medical History Diverticulosis large intestine w/o perforation or abscess w/bleeding Falls GERD (gastroesophageal reflux disease) History of nonmelanoma skin cancer HTN (hypertension) Surgical History History of ankle surgery History of colonoscopy with polypectomy History of knee replacement History of surgery on arm 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 methodist No pertinent past surgical history Family History Mother , at age 89 Mini stroke Father , at age 54 Cancer Throat Social History Smoking and tobacco status: never smoked Alcohol intake: current Alcohol intake frequency: few times a month Caregiver/support person: Yes Lives independently: Yes Marital status: Single Current occupational status: retired History of recent travel: No Physical Exam Const: COMMON NORMALS: no acute distress GENERAL APPEARANCE: cooperative and comfortable ORIENTATION/CONSCIOUSNESS: Yes awake, Yes oriented to person, Yes oriented to place and Yes oriented to time HENMT: COMMON NORMALS: normocephalic, atraumatic, hearing grossly normal bilaterally, external ears normal, EAC's normal, TM's normal bilaterally, Normal nasal mucous membranes and turbinates present, moist oral mucous membranes and oropharynx normal HEAD & SCALP: normocephalic and atraumatic NOSE: Normal nasal mucous membranes and turbinates present EXTERNAL EAR: Yes external ears normal EXTERNAL AUDITORY CANAL: EAC's normal TYMPANIC MEMBRANE: TM's normal bilaterally Eye: COMMON NORMALS: Equal, round and reactive pupils present, EOMs intact bilaterally, conjunctivae normal and no scleral icterus CONJUNCTIVA: Yes conjunctivae normal PUPIL: Yes Equal, round and reactive pupils present Resp: COMMON NORMALS: normal respiratory effort, No retractions, No use of accessory muscles and clear to auscultation bilaterally AUSCULTATION: clear to auscultation bilaterally Cardio: COMMON NORMALS: regular rate, regular rhythm and No murmurs present ( Cardio) RATE: regular rate RHYTHM: regular rhythm GI: COMMON NORMALS: Soft to palpation and No hepatosplenomegaly present AUSCULTATION: Yes normoactive bowel sounds PALPATION: Yes Soft to palpation, No Tenderness to palpation present (GI), No Guarding due to palpation present (GI) and Yes No hepatosplenomegaly present Extremity: COMMON NORMALS: normal to inspection, capillary refill normal, no clubbing, cyanosis or edema, no calf tenderness and no pedal edema Neuro: SENSORIUM/ORIENTATION: Yes oriented to person, Yes oriented to place and Yes oriented to time Skin: COMMON NORMALS: no rashes or lesions noted GENERAL SKIN EXAM: no rashes or lesions noted Course Vital Signs: Vital signs: Vital Signs Temperature 98.0 F 05/19/22 14:30 Pulse Rate 94 05/19/22 14:30 Respiratory Rate 15 05/19/22 14:30 Blood Pressure 109/77 05/19/22 14:30 Pulse Oximetry 98 05/19/22 14:30 Oxygen Delivery Me thod 05/19/22 11:20 MDM - General Adult Medical Decision Making Despite multiple fluid boluses 1 unable to get the patient to sustain a blood pressure adequate for ambulation. Several trials he dropped his blood pressure each time. Think some of this may be related obviously to his alcoholism. Discussed with the hospitalist will admit for hypotension. Orders written. Medical Records I reviewed the patient's medical records. Lab Data I reviewed the patient's lab results. : 05/18/22 04:55 05/18/22 04:55 Radiology Impressions Chest X-Ray 05/14/22 12:02 Impression: Atherosclerosis. Laboratory Results WBC 2.4 10^3/uL (4.0-10.0) L 05/14/22 12:30 RBC 2.88 10^6/uL (4.1-5.3) L 05/14/22 12:30 Hgb 10.5 g/dL (11.7-16.6) L 05/14/22 12:30 Hct 29.8 % (42.0-52.0) L 05/14/22 12:30 MCV 103.5 fl (80-94) H 05/14/22 12:30 MCH 36.5 pg (28.0-34.0) H 05/14/22 12:30 MCHC 35.2 g/dL (30.0-36.0) 05/14/22 12:30 RDW 13.9 % (12.1-15.1) 05/14/22 12:30 Plt Count 189 10^3/cmm (130-400) 05/14/22 12:30 MPV 10.9 fL (7.4-10.4) H 05/14/22 12:30 Neut % (Auto) 38.2 % 05/14/22 12:30 Lymph % (Auto) 39.3 % 05/14/22 12:30 [place] % (Auto) 18.9 % 05/14/22 12:30 Eos % (Auto) 1.6 % 05/14/22 12:30 Baso % (Auto) 1.6 % 05/14/22 12:30 Neut # (Auto) 0.93 10^3/uL (1.8-7.7) L* 05/14/22 12:30 Lymph # (Auto) 1.0 10^3/uL (0.8-4.8) 05/14/22 12:30 [place] # (Auto) 0.5 10^3/uL (0.2-0.9) 05/14/22 12:30 Eos # (Auto) 0.0 10^3/uL (0.0-0.8) 05/14/22 12:30 Baso # (Auto) 0.0 10^3/uL (0.0-0.1) 05/14/22 12:30 Nucleated RBC % (auto) 0 % 05/14/22 12:30 Nucleated RBCs # 0.0 /100WBC 05/14/22 12:30 PT 13.40 SECONDS (12.1-14.9) 05/14/22 12:30 INR 0.99 (0.8-1.2) 05/14/22 12:30 Sodium 131 mmol/L (136-145) L 05/14/22 12:30 Potassium 3.0 mmol/L (3.5-5.1) L 05/14/22 12:30 Chloride 83 mmol/L (98-107) L 05/14/22 12:30 Carbon Dioxide 33 mmol/L (22-29) H 05/14/22 12:30 Anion Gap 18.0 (5-19) 05/14/22 12:30 BUN 9 mg/dL (8-23) 05/14/22 12:30 Creatinine 1.0 mg/dL (0.7-1.2) 05/14/22 12:30 GFR Calculation Not Reportable 05/14/22 12:30 Glucose 86 mg/dL (65-115) 05/14/22 12:30 Calculated Osmolality 270 mOsm/kg (285-295) L 05/14/22 12:30 Calcium 8.4 mg/dL (8.5-10.5) L 05/14/22 12:30 Magnesium 0.8 mg/dL (1.7-2.3) L* 05/14/22 12:30 Total Bilirubin 0.8 mg/dL (0.15-1.2) 05/14/22 12:30 AST 68 U/L (0-40) H 05/14/22 12:30 ALT 32 U/L (0-41) 05/14/22 12:30 Alkaline Phosphatase 97 IU/L (40-130) 05/14/22 12:30 Ammonia 20 umol/L (16-60) 05/14/22 12:30 Total Protein 7.0 g/dL (6.6-8.7) 05/14/22 12:30 Albumin 4.1 g/dL (3.5-5.2) 05/14/22 12:30 Globulin 2.9 g/dL (1.3-4.6) 05/14/22 12:30 Lipase 13 U/L (13-60) 05/14/22 12:30 Procalcitonin 0.12 ng/mL (0-0.5) 05/14/22 12:30 Urine Color Yellow (Yellow) 05/14/22 15:36 Urine Appearance Clear (CLEAR) 05/14/22 15:36 Urine pH 5 (5-7) 05/14/22 15:36 Ur Specific [place] 1.005 (1.005-1.030) 05/14/22 15:36 Urine Protein Neg (Negative) 05/14/22 15:36 Urine Glucose (UA) Norm (Normal) 05/14/22 15:36 Urine Ketones Negative (Negative) 05/14/22 15:36 Urine Blood Neg (Negative) 05/14/22 15:36 Urine Nitrate Negative (Negative) 05/14/22 15:36 Urine Bilirubin Neg (Negative) 05/14/22 15:36 Urine Urobilinogen Norm mg/dL (Negative) 05/14/22 15:36 Ur Leukocyte Esterase Negative (Negative) 05/14/22 15:36 Discharge Plan Discharge Patient Disposition: Admitted As Inpatient Admit Provider: Mal Diggs Clinical Impression: Orthostatic hypotension, ETOH abuse Condition: Stable Discharge Activity: Increase activity as tolerated Coding Level of Care Code ED Industrial Safety And Health Manager for Moe Anand
[2022-05-14 12:50] LABS: Basophils % 1.6 %; Eosinophils % 1.6 %; Hematocrit 29.8 % (42.0-52.0); Hemoglobin 10.5 g/dL (11.7-16.6); Lymphocytes % 39.3 %; Mean Corpuscular HGB Conc 35.2 g/dL (30.0-36.0); Mean Corpuscular Hemoglobin 36.5 pg (28.0-34.0); Mean Corpuscular Volume 103.5 fl (80-94); Mean Platelet Volume 10.9 fL (7.4-10.4); Monocytes # 0.5 10^3/uL (0.2-0.9); Monocytes % 18.9 %; Neutrophils % 38.2 %; Nucleated Red Blood Cells % 0 %; Platelet Count 189 10^3/cmm (130-400); Red Blood Count 2.88 10^6/uL (4.1-5.3); Red Cell Distribution Width 13.9 % (12.1-15.1); White Blood Count 2.4 10^3/uL (4.0-10.0)
[2022-05-14 12:54] LABS: Neutrophils # 0.93 10^3/uL (1.8-7.7)
[2022-05-14 12:55] LABS: INR 0.99 (0.8-1.2)
--- NOTE | 2022-05-14 12:56 | PC.NURSE ---
NOTIFIED DR. HARRIS OF PT 0.93 NEUTROPHIL COUNT
[2022-05-14 13:00] LABS: Ammonia 20 umol/L (16-60)
[2022-05-14 13:06] LABS: Albumin Level 4.1 g/dL (3.5-5.2); Alkaline Phosphatase 97 IU/L (40-130); Blood Urea Nitrogen 9 mg/dL (8-23); Calcium 8.4 mg/dL (8.5-10.5); Carbon Dioxide 33 mmol/L (22-29); Chloride 83 mmol/L (98-107); Globulin 2.9 g/dL (1.3-4.6); Glucose 86 mg/dL (65-115); Lipase 13 U/L (13-60); Osmolality Calculated 270 mOsm/kg (285-295); Sodium 131 mmol/L (136-145); Total Bilirubin 0.8 mg/dL (0.15-1.2)
[2022-05-14 13:07] LABS: Alanine Aminotransferase 32 U/L (0-41); Aspartate Amino Transferase 68 U/L (0-40)
[2022-05-14] MEDS: sodium chloride 0.9% 500 ML 999 ML IV (13:07)
[2022-05-14 15:43] LABS: Add Urine Microscopic? NO; Charge for UA Resulting for Rev
[2022-05-14 15:55] LABS: Bilirubin Urine Neg (Negative); Blood Urine Neg (Negative); Glucose Urine UA Norm (Normal); Ketones Urine Negative (Negative); Leukocyte Esterase Urine Negative (Negative); Nitrate Urine Negative (Negative); Protein Urine Neg (Negative); Specific Gravity, Urine 1.005 (1.005-1.030); Urine Appearance Clear (CLEAR); Urine Color Yellow (Yellow); Urobilinogen Urine Norm (Negative); pH Urine 5 (5-7)
[2022-05-14] MEDS: sodium chloride 0.9% 1,000 ML 999 ML IV (16:34)
--- NOTE | 2022-05-14 19:02 | PC.NURSE ---
report to GILLIAN Schmidt
--- NOTE | 2022-05-14 19:10 | PM.HP ---
Providers/Chief Complaint Primary Care Provider: Paula Mo MD Chief Complaint: Dizziness History of Present Illness Trenton Sainz is a 72 year old male with past medical history of hypertension, GERD, diverticulosis,, alcohol abuse presented to the hospital for complaint of dizziness and frequent falls. He has been a lifelong heavy drinker but he cut back to the point that recently he drinks about a pint a day. He went to the [facility] and had orthostatic vitals checked there and was found to be significantly orthostatic positive with pressure dropping from 1 40-90 systolic from lying to standing. He has been having frequent falls and feeling dizzy at home. He says this is sort of his baseline but he feels worse today. Patient did have an admission in January 2019 for esophageal ulcer with perforation related to drinking. This was surgically repaired. At this time patient denies any chest pain, weakness. Pt is a very poor historian. He is sexually active and consented yes to getting tested for HIV and hepatitis. ED course: Blood pressure 116/80, respirate 18, pulse 74, temperature 98.3, pulse ox 95 on room air. Chest x-ray did not show any acute pneumonia except atherosclerosis. Labs remarkable for leukopenia, neutropenia, anemia hemoglobin 10.5. Sodium 131, potassium 3. EKG shows right bundle branch block. Medications/Allergies Home Medications Medication Instructions Recorded Confirmed Last Taken Type aspirin 325 mg tablet 325 mg PO DAILY 03/04/21 05/14/22 05/13/22 History carvedilol 12.5 mg tablet 12.5 mg PO BID 03/04/21 05/14/22 05/13/22 History guaifenesin 400 mg tablet 400 mg PO Q4H PRN Congestion 03/04/21 05/14/22 04/14/22 History omeprazole 40 mg capsule,delayed 40 mg PO DAILY 03/04/21 05/14/22 05/13/22 History release allopurinol 300 mg tablet 300 mg PO DAILY 02/03/22 05/14/22 05/13/22 History folic acid 1 mg tablet 1 mg PO DAILY 02/03/22 05/14/22 05/13/22 History gabapentin 300 mg capsule 300 mg PO BEDTIME 02/03/22 05/14/22 05/13/22 History multivitamin with iron 1 tab PO DAILY 02/03/22 05/14/22 05/13/22 History thiamine HCl (vitamin B1) 100 mg 100 mg PO DAILY 02/03/22 05/14/22 05/13/22 History tablet paroxetine HCl 40 mg tablet 40 mg PO DAILY 04/15/22 05/14/22 05/13/22 History cetirizine 10 mg tablet (Zyrtec) 10 mg PO DAILY 05/14/22 05/14/22 05/13/22 History cholecalciferol (vitamin D3) 50 50 mcg PO DAILY 05/14/22 05/14/22 05/13/22 History mcg (2,000 unit) capsule (Vitamin D3) fluticasone propionate 50 2 spray intranasal DAILY PRN Nasal 05/14/22 05/14/22 Unknown History mcg/actuation nasal Congestion spray,suspension tamsulosin 0.4 mg capsule (Flomax) 0.8 mg PO BEDTIME 05/14/22 05/14/22 05/13/22 History venlafaxine 75 mg tablet 75 mg PO DAILY 05/14/22 05/14/22 05/13/22 History Allergies Allergy/AdvReac Type Severity Reaction Status Date / Time No Known Allergies Allergy Verified 04/15/22 07:26 PFSH Acute PFSH: Medical History (Updated 05/14/22 @ 20:04 by Margarita Salazar MD) Diverticulosis large intestine w/o perforation or abscess w/bleeding GERD (gastroesophageal reflux disease) History of nonmelanoma skin cancer HTN (hypertension) Surgical History History of ankle surgery History of colonoscopy with polypectomy History of knee replacement History of surgery on arm 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 adventist No pertinent past surgical history Family History Mother , at age 89 Mini stroke Father , at age 54 Cancer Throat Social History Smoking and tobacco status: never smoked Alcohol intake: current Alcohol intake frequency: few times a month Caregiver/support person: Yes Lives independently: Yes Marital status: Single Current occupational status: retired History of recent travel: No Vitals/I&O/Wt Last Vital Signs Temp 98.3 F 05/14/22 12:03 Pulse 111 H 05/14/22 17:21 Resp 18 05/14/22 16:18 BP 107/74 05/14/22 17:21 Pulse Ox 98 05/14/22 17:21 O2 Del Method 05/14/22 17:21 Weight last 48 hrs Weight 88.451 kg Physical Exam Narrative: General: Alert oriented x3, patient seen sitting up in bed. HEENT: Normocephalic, atraumatic, EOMI, breathing normally on room air Cardio: Regular rate rhythm, normal S1-S2, Respiratory: Clear to auscultation bilaterally GI: Abdomen soft, nontender, nondistended, bowel sounds + Extremities: No lower extremity edema noted. Data : 05/14/22 12:30 05/14/22 12:30 A&P Assessment and plan (1) Orthostatic hypotension: Status: Acute (2) ETOH abuse: Status: Acute (3) GERD (gastroesophageal reflux disease): Status: Acute (4) Hypertension: Status: Acute (5) Falls: Status: Acute (6) Dizziness: Status: Acute (7) Leukopenia: Status: Acute (8) Anemia: Status: Acute (9) Neutropenia: Status: Acute Plan #Dizziness, frequent falls #Orthostatic hypotension #Alcohol abuse #History of esophageal ulcer with perforation x2 related to alcohol abuse requiring surgical repair in 2019 #GERD #Hypertension #Leukopenia, neutropenia #Megaloblastic anemia #Hypokalemia, Hypomagnesemia ? Placed on IV for fluids ? Supplement electrolytes as needed - Patient afebrile and reports no fever at home. ? Start on folic acid and thiamine ? Place on CIWA protocol ? Iron, TIBC, ferritin ? Check peripheral blood smear, further workup thereafter ? Check vitamin B12 ? Check FOBT ? Placed on Protonix 40 daily - Check HIV, hepatitis profile Full code DVT prophylaxis: SCDs Attestations Medical Necessity Statement*: Admit to observation for management of orthostatic hypotension. Coding Level of Care Code Acute Vocational Rehabilitation Supervisor for Moe Anand Diagnoses Orthostatic hypotension I95.1 ETOH abuse F10.10 GERD (gastroesophageal reflux disease) K21.9 Hypertension I10 Falls W19.XXXA Dizziness R42 Leukopenia D72.819 Anemia D64.9 Neutropenia D70.9
[2022-05-14] MEDS: potassium chloride premix 100 ML 15 MEQ IV (20:16)
[2022-05-14 21:13] LABS: Magnesium 0.8 mg/dL (1.7-2.3); Procalcitonin 0.12 ng/mL (0-0.5)
[2022-05-14] MEDS: gabapentin 300 mg Capsule PO (23:36)
[2022-05-14] MEDS: magnesium sulfate premix 4 GM/100 ML PREMIX IV (23:37)
[2022-05-14] MEDS: heparin 5,000 unit/mL INJ 1 mL 5000 UNIT SUBCUT (23:37)
[2022-05-14] MEDS: sodium chloride 0.9% 1,000 ML 100 ML IV (23:37)
[2022-05-15] VITALS (8 sets, daily range): BP systolic 106–147; BP diastolic 75–86; PULSE 78–102; RESP 16–79; TEMP 36.6–36.7; O2SAT 95–99
[2022-05-15 00:36] LABS: HIV 1 & 2 Antibody Non-Reactive (Non-Reactiv); HIV 1 & 2 Antigen Non-Reactive (Non-Reactiv)
[2022-05-15 00:43] LABS: Hepatitis A Antibody IgM Non-Reactive (Nonreactive); Hepatitis B Core AB, Total Non-Reactive (Nonreactive); Hepatitis B Surface AB 3.5 (11.5-1000); Hepatitis B Surface Antigen Non-Reactive (Nonreactive); Hepatitis C Virus Antibody Non-Reactive (Nonreactive)
[2022-05-15] MEDS: folic acid 1 MG, multivitamin inj 10 ML, thiamine 100 MG in sodium chloride 0.9% 1,000 ML 252.8 MG IV (01:19)
[2022-05-15 05:12] LABS: Basophils % 1.1 %; Eosinophils # 0.1 10^3/uL (0.0-0.8); Eosinophils % 1.4 %; Hematocrit 33.1 % (42.0-52.0); Lymphocytes % 26.7 %; Mean Corpuscular HGB Conc 33.2 g/dL (30.0-36.0); Mean Corpuscular Hemoglobin 36.5 pg (28.0-34.0); Mean Platelet Volume 11.2 fL (7.4-10.4); Monocytes # 0.7 10^3/uL (0.2-0.9); Monocytes % 19.4 %; Neutrophils # 1.84 10^3/uL (1.8-7.7); Neutrophils % 51.1 %; Nucleated Red Blood Cells % 0 %; Platelet Count 186 10^3/cmm (130-400); Red Blood Count 3.01 10^6/uL (4.1-5.3); Red Cell Distribution Width 14.5 % (12.1-15.1); White Blood Count 3.6 10^3/uL (4.0-10.0)
[2022-05-15 05:33] LABS: Alanine Aminotransferase 31 U/L (0-41); Albumin Level 3.4 g/dL (3.5-5.2); Alkaline Phosphatase 93 IU/L (40-130); Blood Urea Nitrogen 8 mg/dL (8-23); Calcium 7.9 mg/dL (8.5-10.5); Carbon Dioxide 28 mmol/L (22-29); Chloride 99 mmol/L (98-107); Globulin 2.6 g/dL (1.3-4.6); Glucose 95 mg/dL (65-115); Osmolality Calculated 288 mOsm/kg (285-295); Phosphorus 3.2 mg/dL (2.5-4.5); Sodium 140 mmol/L (136-145)
[2022-05-15 05:37] LABS: Anion Gap 16.2 (5-19); Aspartate Amino Transferase 57 U/L (0-40); Potassium 3.2 mmol/L (3.5-5.1)
[2022-05-15 06:14] LABS: Glucose Point of Care 88 mg/dL (70-110)
[2022-05-15 08:12] LABS: LAB Peripheral Smear Sent for Review
[2022-05-15] MEDS: pantoprazole DR 40 mg Tablet PO (08:53)
[2022-05-15] MEDS: venlafaxine 75 mg Tablet PO (08:53)
[2022-05-15] MEDS: thiamine 100 mg Tablet PO (08:53)
[2022-05-15] MEDS: PARoxetine 20 mg Tablet 40 MG PO (08:54)
[2022-05-15] MEDS: midodrine 5 mg TABLET PO ×3 (09:48→20:41)
[2022-05-15] MEDS: sodium chloride 0.9% 1,000 ML 100 ML IV ×2 (11:47→20:59)
[2022-05-15] MEDS: heparin 5,000 unit/mL INJ 1 mL 5000 UNIT SUBCUT ×2 (11:48→23:05)
--- NOTE | 2022-05-15 17:29 | PM.PN ---
Subjective Subjective: This morning he had an episode of diarrhea, did not make it entirely to the bathroom. So far without recurrence. Earlier was getting lightheaded when standing up. Denies chest pain or pressure. Feeling a bit better. Reports to the nurse that he had just stopped drinking alcohol in the last 24 hours. Prior to that he was drinking a pint a day. He states he feels concerned about going into withdrawal. Does not feel comfortable going home. Vitals/I&O/Wt Last Vital Signs Temp 97.8 F 05/15/22 15:28 Pulse 90 05/15/22 15:28 Resp 16 05/15/22 15:28 BP 135/86 05/15/22 15:28 Pulse Ox 99 05/15/22 15:28 O2 Del Method 05/15/22 15:28 05/15/22 05/15/22 05/15/22 06:59 14:59 22:59 Intake Total 3191.2 / 3191.2 1480 / 1480 Output Total 1300 / 1300 250 / 250 300 / 550 Balance 1891.2 / 1891.2 1230 / 1230 -300 / 930 Weight last 48 hrs Weight 91.444 kg Weight 88.451 kg Weight 88.451 kg Physical Exam Const: COMMON NORMALS: patient oriented x3 and alert GENERAL APPEARANCE: cooperative NUTRITIONAL APPEARANCE: overweight ORIENTATION/CONSCIOUSNESS: Yes awake HENMT: COMMON NORMALS: oropharynx normal Neck/C-Spine: COMMON NORMALS: no JVD Resp: COMMON NORMALS: normal respiratory effort and clear to auscultation bilaterally AUSCULTATION: clear to auscultation bilaterally Cardio: COMMON NORMALS: no JVD, regular rhythm, S1 normal heart sound present, S2 normal heart sound present and No murmurs present (Cardio) RHYTHM: regular rhythm HEART SOUNDS: S1 normal heart sound present and S2 normal heart sound present GI: COMMON NORMALS: Normal to inspection, nondistended, normoactive bowel sounds present, Soft to palpation and non-tender PALPATION: Yes Soft to palpation Extremity: COMMON NORMALS: no joint enlargement and no pedal edema Neuro: COMMON NORMALS: patient oriented x3 and moves all extremities SENSORIUM/ORIENTATION: Yes alert Skin: COMMON NORMALS: no rashes or lesions noted GENERAL SKIN EXAM: no rashes or lesions noted Data : 05/15/22 04:45 05/15/22 04:45 A&P Assessment and plan (1) Orthostatic hypotension: Started on midodrine 5 mg 3 times daily. Orthostatic blood pressure decreased still present, but better. Blood pressure still did decrease from 138/81-1 18 from laying to standing. Continue gentle IV hydration. Possibly exacerbated by diarrhea. Fall precautions. Bedside commode. Status: Acute (2) ETOH abuse: He is concerned about going to withdrawal. We will additionally observe tonight. Librium, Ativan per [facility] protocol. Status: Acute (3) Falls: Continue to optimize orthostatic hypotension. Status: Acute (4) Dizziness: Status: Acute (5) Leukopenia: Status: Acute (6) Anemia: Status: Acute (7) Neutropenia: Status: Acute (8) Hypertension: Status: Acute (9) GERD (gastroesophageal reflux disease): Status: Acute Plan Diarrhea: 1 episode today. Possibly contributed to his orthostasis. So far without recurrence. In case recurrent collect stool samples. #Megaloblastic anemia #Hypokalemia, Hypomagnesemia Attestations Medical Necessity Statement*: Continue observation due to concern for alcohol withdrawal, having stopped drinking in the last 24 hours, prior to that drinking 1 pint a day. Continue assessment and optimization of orthostatic hypotension with recent dizziness, falls. Coding Level of Care Code Acute Automation Controls Engineer for Moe Anand Diagnoses Orthostatic hypotension I95.1 ETOH abuse F10.10 Falls W19.XXXA Dizziness R42 Leukopenia D72.819 Anemia D64.9 Neutropenia D70.9 Hypertension I10 GERD (gastroesophageal reflux disease) K21.9
[2022-05-15] MEDS: ondansetron 2 mg/ML SDV 2 mL 4 MG IVP (18:42)
[2022-05-15] MEDS: gabapentin 300 mg Capsule PO (20:41)
[2022-05-15] MEDS: LORazepam 2 mg Tablet PO (20:50)
[2022-05-15 22:37] LABS: Troponin T (5th) Once 13 ng/L (0-15)
[2022-05-15] MEDS: calcium carbonate 500 mg Chew Tablet PO (23:05)
--- NOTE | 2022-05-15 23:20 | ECG_ITS ---
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 Measurements Intervals [place] Rate: 116 P: [place]: QRS: 71 QRSD: 128 T: 43 QT: 333 QTc: 463 Interpretive Statements UNCERTAIN REGULAR RHYTHM-possible sinus tachycardia RIGHT BUNDLE BRANCH BLOCK [120+ ms QRS DURATION, UPRIGHT V1, 40+ ms S IN I/aVL/V4/V5/V6] CRITICAL TEST RESULT Compared to ECG 05/14/2022 12:07:52 Sinus rhythm no longer present Electronically Signed On 05-16-2022 19:02:55 CDT by Miranda Brady M.D. [email or web address]/[id number]
[2022-05-16] VITALS (10 sets, daily range): BP systolic 107–151; BP diastolic 74–95; PULSE 92–112; RESP 14–20; TEMP 36.3–36.8; O2SAT 93–98
[2022-05-16] MEDS: sodium chloride 0.9% 1,000 ML 100 ML IV ×2 (06:10→17:59)
[2022-05-16 07:12] LABS: Basophils % 0.6 %; Eosinophils # 0.2 10^3/uL (0.0-0.8); Eosinophils % 2.5 %; Hematocrit 35.3 % (42.0-52.0); Hemoglobin 11.3 g/dL (11.7-16.6); Lymphocytes # 0.5 10^3/uL (0.8-4.8); Mean Corpuscular Hemoglobin 37.3 pg (28.0-34.0); Mean Corpuscular Volume 116.5 fl (80-94); Mean Platelet Volume 10.6 fL (7.4-10.4); Monocytes # 0.9 10^3/uL (0.2-0.9); Monocytes % 12.9 %; Neutrophils % 75.7 %; Nucleated Red Blood Cells % 0 %; Platelet Count 239 10^3/cmm (130-400); Red Blood Count 3.03 10^6/uL (4.1-5.3); Red Cell Distribution Width 14.8 % (12.1-15.1); White Blood Count 6.7 10^3/uL (4.0-10.0)
[2022-05-16 07:46] LABS: Alanine Aminotransferase 26 U/L (0-41); Albumin Level 3.8 g/dL (3.5-5.2); Alkaline Phosphatase 91 IU/L (40-130); Anion Gap 14.8 (5-19); Aspartate Amino Transferase 44 U/L (0-40); Blood Urea Nitrogen 6 mg/dL (8-23); Calcium 8.1 mg/dL (8.5-10.5); Carbon Dioxide 29 mmol/L (22-29); Chloride 98 mmol/L (98-107); Globulin 2.7 g/dL (1.3-4.6); Glucose 108 mg/dL (65-115); Magnesium 1.2 mg/dL (1.7-2.3); Osmolality Calculated 286 mOsm/kg (285-295); Sodium 139 mmol/L (136-145); Total Protein 6.5 g/dL (6.6-8.7)
[2022-05-16 07:52] LABS: Potassium 2.8 mmol/L (3.5-5.1)
[2022-05-16] MEDS: folic acid 1 mg Tablet PO (08:40)
[2022-05-16] MEDS: multivitamin therapeutic Tablet 1 TAB PO (08:40)
[2022-05-16] MEDS: thiamine 100 mg Tablet PO (08:40)
[2022-05-16] MEDS: midodrine 5 mg TABLET PO ×3 (08:40→21:41)
[2022-05-16] MEDS: pantoprazole DR 40 mg Tablet PO (08:40)
[2022-05-16] MEDS: venlafaxine 75 mg Tablet PO (08:40)
[2022-05-16] MEDS: PARoxetine 20 mg Tablet 40 MG PO (08:40)
[2022-05-16] MEDS: lidocaine 1% 5 ML in potassium chloride premix 100 ML 25 ML IV (09:57)
[2022-05-16] MEDS: heparin 5,000 unit/mL INJ 1 mL 5000 UNIT SUBCUT ×2 (11:39→23:05)
[2022-05-16] MEDS: magnesium sulfate premix 4 GM/100 ML PREMIX IV (11:39)
[2022-05-16] MEDS: LORazepam 2 mg Tablet PO ×2 (13:26→21:40)
--- NOTE | 2022-05-16 14:14 | PM.PN ---
Subjective Subjective: Reports overall he is doing pretty well, but later on his came out of the room to tell me that he had admitted to her that he was starting to have hallucinations. He had an episode of emesis last night. No further diarrhea. Vitals/I&O/Wt Last Vital Signs Temp 98.1 F 05/16/22 12:00 Pulse 112 H 05/16/22 12:00 Resp 14 05/16/22 12:00 BP 133/94 05/16/22 12:00 Pulse Ox 93 05/16/22 12:00 O2 Del Method 05/16/22 12:00 05/15/22 05/16/22 05/16/22 22:59 06:59 14:59 Intake Total 1400 / 2880 918.333 / 3798.333 240 / 240 Output Total 300 / 550 650 / 1200 Balance 1100 / 2330 268.333 / 2598.333 240 / 240 Weight last 48 hrs Weight 91.444 kg Weight 88.451 kg Physical Exam Narrative: at bedside. Const: COMMON NORMALS: patient oriented x3 and alert GENERAL APPEARANCE: cooperative NUTRITIONAL APPEARANCE: overweight ORIENTATION/CONSCIOUSNESS: Yes awake HENMT: COMMON NORMALS: oropharynx normal Neck/C-Spine: COMMON NORMALS: no JVD Resp: COMMON NORMALS: normal respiratory effort and clear to auscultation bilaterally AUSCULTATION: clear to auscultation bilaterally Cardio: COMMON NORMALS: no JVD, regular rhythm, S1 normal heart sound present, S2 normal heart sound present and No murmurs present (Cardio) RHYTHM: regular rhythm HEART SOUNDS: S1 normal heart sound present and S2 normal heart sound present GI: COMMON NORMALS: Normal to inspection, nondistended, normoactive bowel sounds present, Soft to palpation and non-tender PALPATION: Yes Soft to palpation Extremity: COMMON NORMALS: no joint enlargement and no pedal edema Neuro: COMMON NORMALS: patient oriented x3 and moves all extremities SENSORIUM/ORIENTATION: Yes alert Skin: COMMON NORMALS: no rashes or lesions noted GENERAL SKIN EXAM: no rashes or lesions noted Data : 05/16/22 06:10 05/16/22 06:10 A&P Assessment and plan (1) ETOH abuse: CIWA score was higher last night, this morning was good, however, he seems to have not reported all symptoms to nursing staff. CIWA up to 10 this afternoon. who came out to the hallway to speak with me reports that he had told her he was starting to hallucinate. We will go ahead and start him on Librium for alcohol withdrawal. Continue CIWA assessments. Status: Acute (2) Orthostatic hypotension: Appear to be improving. Recheck orthostatics. Started on midodrine 5 mg 3 times daily. Orthostatic blood pressure decreased still present, but better. Blood pressure still did decrease from 138/81-1 18/75 from laying to standing. Continue gentle IV hydration. Possibly exacerbated by diarrhea. Fall precautions. Bedside commode. Status: Acute (3) Falls: Continue to optimize orthostatic hypotension. Status: Acute (4) Dizziness: Status: Acute (5) Leukopenia: Status: Acute (6) Anemia: Status: Acute (7) Neutropenia: Status: Acute (8) Hypertension: Status: Acute (9) GERD (gastroesophageal reflux disease): Status: Acute Plan Diarrhea: 1 episode today. Possibly contributed to his orthostasis. So far without recurrence. In case recurrent collect stool samples. #Megaloblastic anemia #Hypokalemia, Hypomagnesemia Attestations Medical Necessity Statement*: Continue admission for assessment management of severe alcohol withdrawal, optimization of orthostatic hypotension. Coding Level of Care Code Acute Surface Grinder Tender for Chg Fwd Exam Comprehensive Diagnoses ETOH abuse F10.10 Orthostatic hypotension I95.1 Falls W19.XXXA Dizziness R42 Leukopenia D72.819 Anemia D64.9 Neutropenia D70.9 Hypertension I10 GERD (gastroesophageal reflux disease) K21.9
[2022-05-16] MEDS: chlordiazePOXIDE 25 mg Capsule PO (15:38)
[2022-05-16] MEDS: gabapentin 300 mg Capsule PO (21:40)
[2022-05-17] VITALS (9 sets, daily range): BP systolic 93–122; BP diastolic 68–83; PULSE 82–111; RESP 15–18; TEMP 36.3–36.8; O2SAT 94–99
[2022-05-17 05:33] LABS: Basophils % 0.5 %; Eosinophils % 0.2 %; Hematocrit 28.5 % (42.0-52.0); Hemoglobin 10.4 g/dL (11.7-16.6); Lymphocytes # 0.9 10^3/uL (0.8-4.8); Lymphocytes % 15.3 %; Mean Corpuscular HGB Conc 36.5 g/dL (30.0-36.0); Mean Corpuscular Volume 101.4 fl (80-94); Mean Platelet Volume 11.2 fL (7.4-10.4); Monocytes # 0.7 10^3/uL (0.2-0.9); Monocytes % 11.4 %; Neutrophils # 4.27 10^3/uL (1.8-7.7); Neutrophils % 72.4 %; Nucleated Red Blood Cells % 0 %; Platelet Count 219 10^3/cmm (130-400); Red Blood Count 2.81 10^6/uL (4.1-5.3); Red Cell Distribution Width 14.1 % (12.1-15.1); White Blood Count 5.9 10^3/uL (4.0-10.0)
[2022-05-17 05:54] LABS: Alanine Aminotransferase 56 U/L (0-41); Albumin Level 3.1 g/dL (3.5-5.2); Alkaline Phosphatase 175 IU/L (40-130); Aspartate Amino Transferase 161 U/L (0-40); Blood Urea Nitrogen 8 mg/dL (8-23); Calcium 7.9 mg/dL (8.5-10.5); Carbon Dioxide 27 mmol/L (22-29); Chloride 98 mmol/L (98-107); Globulin 2.8 g/dL (1.3-4.6); Glucose 83 mg/dL (65-115); Magnesium 1.7 mg/dL (1.7-2.3); Osmolality Calculated 279 mOsm/kg (285-295); Sodium 136 mmol/L (136-145); Total Bilirubin 3.3 mg/dL (0.15-1.2); Total Protein 5.9 g/dL (6.6-8.7)
[2022-05-17 05:58] LABS: Anion Gap 14.2 (5-19); Potassium 3.2 mmol/L (3.5-5.1)
[2022-05-17] MEDS: sodium chloride 0.9% 1,000 ML 100 ML IV (06:36)
[2022-05-17] MEDS: multivitamin therapeutic Tablet 1 TAB PO (09:38)
[2022-05-17] MEDS: venlafaxine 75 mg Tablet PO (09:38)
[2022-05-17] MEDS: thiamine 100 mg Tablet PO (09:38)
[2022-05-17] MEDS: midodrine 5 mg TABLET PO ×3 (09:38→20:08)
[2022-05-17] MEDS: folic acid 1 mg Tablet PO (09:38)
[2022-05-17] MEDS: pantoprazole DR 40 mg Tablet PO (09:38)
[2022-05-17] MEDS: chlordiazePOXIDE 25 mg Capsule PO ×3 (09:38→20:08)
[2022-05-17] MEDS: PARoxetine 20 mg Tablet 40 MG PO (09:38)
[2022-05-17] MEDS: FUROsemide 10 mg/mL SDV 2mL 20 MG IVP (11:53)
[2022-05-17] MEDS: heparin 5,000 unit/mL INJ 1 mL 5000 UNIT SUBCUT ×2 (11:53→21:46)
[2022-05-17] MEDS: ipratropium-albuterol 3 mL Neb INHALATION (11:54)
--- NOTE | 2022-05-17 12:19 | P.PN_ITS ---
Subjective Subjective: CIWA score is at 0 this morning. Patient needed Ativan last night for CIWA score of 12. At this present time he is currently alert awake and oriented. He was noted to become short of breath upon attempting to get out of bed. On examination bilateral wheezing is noted. Additionally he has been having trouble initiating a urinary stream this morning. Vitals/I&O/Wt Last Vital Signs Temp 97.6 F 05/17/22 08:00 Pulse 96 05/17/22 11:54 Resp 16 05/17/22 11:54 BP 122/83 05/17/22 08:00 Pulse Ox 97 05/17/22 11:54 O2 Del Method 05/17/22 11:54 05/16/22 05/17/22 05/17/22 22:59 06:59 14:59 Intake Total 1010 / 1695 885 / 2580 910 / 910 Output Total 300 / 300 0 / 300 Balance 710 / 1395 885 / 2280 910 / 910 Physical Exam Narrative: General: No acute distress, AO x3 HEENT: PERRLA, pupils bilaterally equal and reactive, pallors not present Chest: Wheezing to auscultation wheezing to auscultation bilaterally all areas CVS: S1-S2 regular, no murmurs, no tachycardia, no gallops, no rubs Abdomen: Soft, nontender, no organomegaly, bowel sounds present Neuro: No focal deficits, no facial deformity, AO x3, power 5/5 in all limbs Extremities: No edema clubbing or cyanosis Data : 05/17/22 04:50 05/17/22 04:50 A&P Assessment and plan (1) ETOH abuse: CIWA score currently at 0 this morning Continue Librium, as needed Ativan per CIWA score. He is not currently interested in establishing with [facility] as outpatient for continued alcohol dependence help. Status: Acute (2) Orthostatic hypotension: Currently is a resolved this is currently resolved with midodrine. Discontinue IV fluids today as patient is developing Rales and wheezing to auscultation which may be a result of fluid overload. Lasix 20 mg IV x1 today, monitor for urine response. Flomax had previously been discontinued due to orthostatic hypotension, however patient is unable to void. Will restart Flomax today and monitor for response of blood pressure with added midodrine. Status: Acute (3) Falls: Continue to optimize orthostatic hypotension. 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
[2022-05-17] MEDS: gabapentin 300 mg Capsule PO (20:08)
[2022-05-18] VITALS (9 sets, daily range): BP systolic 106–123; BP diastolic 70–83; PULSE 70–103; RESP 16–18; TEMP 36.6–37; O2SAT 93–98
[2022-05-18] MEDS: chlordiazePOXIDE 25 mg Capsule PO ×3 (03:15→21:12)
[2022-05-18 05:19] LABS: Basophils % 0.7 %; Eosinophils # 0.1 10^3/uL (0.0-0.8); Hematocrit 29.2 % (42.0-52.0); Hemoglobin 9.7 g/dL (11.7-16.6); Lymphocytes % 17.8 %; Mean Corpuscular HGB Conc 33.2 g/dL (30.0-36.0); Mean Corpuscular Hemoglobin 36.9 pg (28.0-34.0); Mean Platelet Volume 11.1 fL (7.4-10.4); Monocytes # 0.6 10^3/uL (0.2-0.9); Monocytes % 10.7 %; Neutrophils # 3.72 10^3/uL (1.8-7.7); Neutrophils % 68.4 %; Nucleated Red Blood Cells % 0 %; Platelet Count 231 10^3/cmm (130-400); Red Blood Count 2.63 10^6/uL (4.1-5.3); Red Cell Distribution Width 15.1 % (12.1-15.1); White Blood Count 5.4 10^3/uL (4.0-10.0)
[2022-05-18 05:42] LABS: Alanine Aminotransferase 59 U/L (0-41); Albumin Level 2.8 g/dL (3.5-5.2); Alkaline Phosphatase 191 IU/L (40-130); Anion Gap 12.4 (5-19); Aspartate Amino Transferase 116 U/L (0-40); Blood Urea Nitrogen 15 mg/dL (8-23); Calcium 8.1 mg/dL (8.5-10.5); Carbon Dioxide 29 mmol/L (22-29); Chloride 102 mmol/L (98-107); Globulin 2.5 g/dL (1.3-4.6); Glucose 92 mg/dL (65-115); Magnesium 1.4 mg/dL (1.7-2.3); Osmolality Calculated 290 mOsm/kg (285-295); Potassium 3.4 mmol/L (3.5-5.1); Sodium 140 mmol/L (136-145); Total Protein 5.3 g/dL (6.6-8.7)
[2022-05-18] MEDS: pantoprazole DR 40 mg Tablet PO (08:14)
[2022-05-18] MEDS: midodrine 5 mg TABLET PO ×3 (08:14→21:12)
[2022-05-18] MEDS: tamsulosin 0.4 mg Capsule PO (08:14)
[2022-05-18] MEDS: multivitamin therapeutic Tablet 1 TAB PO (08:14)
[2022-05-18] MEDS: venlafaxine 75 mg Tablet PO (08:14)
[2022-05-18] MEDS: folic acid 1 mg Tablet PO (08:14)
[2022-05-18] MEDS: thiamine 100 mg Tablet PO (08:14)
[2022-05-18] MEDS: PARoxetine 20 mg Tablet 40 MG PO (08:15)
--- NOTE | 2022-05-18 10:00 | P.PN_ITS ---
Subjective Subjective: patient had developed urinary retention yesterday of >900ml which needed placement of urinary catheter. We will remove hollingsworth today and assess for voiding trial. Iv lasix given yesterday, no current dyspnea. Vitals/I&O/Wt Last Vital Signs Temp 98.2 F 05/18/22 21:14 Pulse 72 05/18/22 21:14 Resp 17 05/18/22 21:14 BP 118/81 05/18/22 21:14 Pulse Ox 93 05/18/22 20:00 O2 Del Method 05/18/22 16:00 05/18/22 05/18/22 05/18/22 06:59 14:59 22:59 Intake Total 480 / 480 240 / 720 Output Total 225 / 1625 Balance -225 / -475 480 / 480 240 / 720 Physical Exam Narrative: General: No acute distress, AO x3 HEENT: PERRLA, pupils bilaterally equal and reactive, pallors not present Chest: Normal vesicular breath sounds, no added sounds, equal good air entry bi laterally CVS: S1-S2 regular, no murmurs, no tachycardia, no gallops, no rubs Abdomen: Soft, nontender, no organomegaly, bowel sounds present Neuro: No focal deficits, no facial deformity, AO x3, power 5/5 in all limbs Urinary Catheter Management: Hollingsworth: Cath Placed During This Visit: yes Reason for Continuing Indwelling Catheter: Acute Urinary Retention or Obstruction Urinary Catheter Date of Insertion: 05/17/22 Urinary Catheter Time of Insertion: 18:08 Data : 05/18/22 04:55 05/18/22 04:55 A&P Assessment and plan (1) ETOH abuse: CIWA score currently improving Continue Librium, as needed Ativan per CIWA score. He is not currently interested in establishing with [facility] as outpatient for continued alcohol dependence help. Status: Acute (2) Orthostatic hypotension: Currently is a resolved this is currently resolved with midodrine. Status: Acute (3) Falls: Continue to optimize orthostatic hypotension. Status: Acute (4) Dizziness: Status: Acute (5) Leukopenia: Status: Acute (6) Anemia: Status: Acute (7) Neutropenia: Status: Acute (8) Hypertension: Status: Acute (9) GERD (gastroesophageal reflux disease): Status: Acute Plan urinary retention: restarted flomax, remove hollingsworth, voiding trial today. 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
[2022-05-18] MEDS: heparin 5,000 unit/mL INJ 1 mL 5000 UNIT SUBCUT ×2 (11:08→23:49)
[2022-05-18] MEDS: gabapentin 300 mg Capsule PO (21:12)
[2022-05-19] VITALS (9 sets, daily range): BP systolic 109–136; BP diastolic 76–86; PULSE 70–94; RESP 15–18; TEMP 36.5–36.8; O2SAT 93–98
--- NOTE | 2022-05-19 04:41 | NUR.SHIFT ---
Pt in bed resting, bed low and locked, call light in reach, no needs at assessment
[2022-05-19] MEDS: chlordiazePOXIDE 25 mg Capsule PO ×2 (05:57→11:26)
[2022-05-19] MEDS: venlafaxine 75 mg Tablet PO (08:26)
[2022-05-19] MEDS: multivitamin therapeutic Tablet 1 TAB PO (08:26)
[2022-05-19] MEDS: thiamine 100 mg Tablet PO (08:26)
[2022-05-19] MEDS: tamsulosin 0.4 mg Capsule PO (08:27)
[2022-05-19] MEDS: pantoprazole DR 40 mg Tablet PO (08:27)
[2022-05-19] MEDS: folic acid 1 mg Tablet PO (08:27)
[2022-05-19] MEDS: PARoxetine 20 mg Tablet 40 MG PO (08:27)
[2022-05-19] MEDS: midodrine 5 mg TABLET PO (08:27)
[2022-05-19 09:41] LABS: Magnesium 1.2 mg/dL (1.7-2.3)
--- NOTE | 2022-05-19 11:19 | P.DS_ITS ---
Discharge Providers Date of Admission: 05/14/22 23:05 Date of Discharge: May 19, 2022 Attending Provider at Admission: Mal Diggs MD Attending Provider at Discharge: Cecile Blandon MD Primary Care Provider: Paula Mo MD Diagnoses at Discharge Discharge Diagnosis (1) ETOH abuse: Status: Acute (2) Orthostatic hypotension: Status: Acute (3) Falls: Status: Acute (4) Dizziness: Status: Acute (5) Leukopenia: Status: Acute (6) Anemia: Status: Acute (7) Neutropenia: Status: Acute (8) Hypertension: Status: Acute (9) GERD (gastroesophageal reflux disease): Status: Acute Reason for Visit Reason for Visit: Dizziness Hospital Course Hospital Course 72-year-old gentleman originally presented with dizziness and frequent falls, severe orthostatic hypotension, and was monitored for alcohol withdrawal as well due to heavy alcohol intake, having recently stopped drinking a pint a day. Orthostatic hypotension improved with midodrine, he was admitted to the hospital and managed for alcohol withdrawal. His initial CIWA scores ranged between 12- 13, started on Librium and as needed Ativan following which his CIWA scores have steadily been between 0-1. He is currently doing well. Ambulated with a walker in the room, was steady on his feet. No further episodes of orthostasis were noted in the hospital. His Flomax had been discontinued due to orthostatic hypotension, following which patient developed urinary retention on May 17, 2022. He had retained greater than 900 mL retained on bladder scan, Treadwell ne eded to be placed for about 24 hours. Treadwell has since been discontinued and patient is able to void freely this morning after resumption of Flomax. He was counseled extensively regarding alcohol cessation.. I did offer evaluation by our n.p.u. unit, however he declines and prefers to follow-up with [facility] as outpatient. Medication changes this admission have included discontinuing lisinopril and c arvedilol because of hypotension. Addition of midodrine 10 mg p.o. 3 times daily and Librium 25 mg p.o. twice daily for 7 days at discharge. Instructed to follow-up with primary care provider in 1 week. Physical Exam Narrative: General: No acute distress, AO x3 HEENT: PERRLA, pupils bilaterally equal and reactive, pallors not present Chest: Normal vesicular breath sounds, no added sounds, equal good air entry bilaterally CVS: S1-S2 regular, no murmurs, no tachycardia, no gallops, no rubs Abdomen: Soft, nontender, no organomegaly, bowel sounds present Neuro: No focal deficits, no facial deformity, AO x3, power 5/5 in all limbs Extremities: no edema, clubbing or cyaosis. Urinary Catheter Management: Treadwell: Cath Placed During This Visit: yes Reason for Continuing Indwelling Catheter: Acute Urinary Retention or Obstruction Urinary Catheter Date of Insertion: 05/17/22 Urinary Catheter Time of Insertion: 18:08 Discharge Data Studies Completed and Pending Completed Studies During Hospitalization Category Date Time Status XR chest 1V portable [id number] Stat Exams 05/14/22 12:02 Completed Radiology Impressions Chest X-Ray 05/14/22 12:02 Impression: Atherosclerosis. Laboratory Results WBC 5.4 10^3/uL (4.0-10.0) 05/18/22 04:55 RBC 2.63 10^6/uL (4.1-5.3) L 05/18/22 04:55 Hgb 9.7 g/dL (11.7-16.6) L 05/18/22 04:55 Hct 29.2 % (42.0-52.0) L 05/18/22 04:55 MCV 111.0 fl (80-94) H D 05/18/22 04:55 MCH 36.9 pg (28.0-34.0) H 05/18/22 04:55 MCHC 33.2 g/dL (30.0-36.0) D 05/18/22 04:55 RDW 15.1 % (12.1-15.1) 05/18/22 04:55 Plt Count 231 10^3/cmm (130-400) 05/18/22 04:55 MPV 11.1 fL (7.4-10.4) H 05/18/22 04:55 Neut % (Auto) 68.4 % 05/18/22 04:55 Lymph % (Auto) 17.8 % 05/18/22 04:55 [place] % (Auto) 10.7 % 05/18/22 04:55 Eos % (Auto) 2.0 % 05/18/22 04:55 Baso % (Auto) 0.7 % 05/18/22 04:55 Neut # (Auto) 3.72 10^3/uL (1.8-7.7) 05/18/22 04:55 Lymph # (Auto) 1.0 10^3/uL (0.8-4.8) 05/18/22 04:55 [place] # (Auto) 0.6 10^3/uL (0.2-0.9) 05/18/22 04:55 Eos # (Auto) 0.1 10^3/uL (0.0-0.8) 05/18/22 04:55 Baso # (Auto) 0.0 10^3/uL (0.0-0.1) 05/18/22 04:55 Nucleated RBC % (auto) 0 % 05/18/22 04:55 Nucleated RBCs # 0.0 /100WBC 05/18/22 04:55 PT 13.40 SECONDS (12.1-14.9) 05/14/22 12:30 INR 0.99 (0.8-1.2) 05/14/22 12:30 Sodium 140 mmol/L (136-145) 05/18/22 04:55 Potassium 3.4 mmol/L (3.5-5.1) L 05/18/22 04:55 Chloride 102 mmol/L (98-107) 05/18/22 04:55 Carbon Dioxide 29 mmol/L (22-29) 05/18/22 04:55 Anion Gap 12.4 (5-19) 05/18/22 04:55 BUN 15 mg/dL (8-23) 05/18/22 04:55 Creatinine 0.7 mg/dL (0.7-1.2) 05/18/22 04:55 GFR Calculation Not Reportable 05/18/22 04:55 Glucose 92 mg/dL (65-115) 05/18/22 04:55 POC Glucose 88 mg/dL (70-110) 05/15/22 06:06 Calculated Osmolality 290 mOsm/kg (285-295) 05/18/22 04:55 Calcium 8.1 mg/dL (8.5-10.5) L 05/18/22 04:55 Phosphorus 3.2 mg/dL (2.5-4.5) 05/15/22 04:45 Magnesium 1.2 mg/dL (1.7-2.3) L 05/19/22 08:55 Total Bilirubin 2.0 mg/dL (0.15-1.2) H 05/18/22 04:55 AST 116 U/L (0-40) H 05/18/22 04:55 ALT 59 U/L (0-41) H 05/18/22 04:55 Alkaline Phosphatase 191 IU/L (40-130) H 05/18/22 04:55 Ammonia 20 umol/L (16-60) 05/14/22 12:30 Troponin T Gen 5 ng/L 13 ng/L (0-15) 05/15/22 22:05 Total Protein 5.3 g/dL (6.6-8.7) L 05/18/22 04:55 Albumin 2.8 g/dL (3.5-5.2) L 05/18/22 04:55 Globulin 2.5 g/dL (1.3-4.6) 05/18/22 04:55 Lipase 13 U/L (13-60) 05/14/22 12:30 Procalcitonin 0.12 ng/mL (0-0.5) 05/14/22 12:30 Urine Color Yellow (Yellow) 05/14/22 15:36 Urine Appearance Clear (CLEAR) 05/14/22 15:36 Urine pH 5 (5-7) 05/14/22 15:36 Ur Specific [place] 1.005 (1.005-1.030) 05/14/22 15:36 Urine Protein Neg (Negative) 05/14/22 15:36 Urine Glucose (UA) Norm (Normal) 05/14/22 15:36 Urine Ketones Negative (Negative) 05/14/22 15:36 Urine Blood Neg (Negative) 05/14/22 15:36 Urine Nitrate Negative (Negative) 05/14/22 15:36 Urine Bilirubin Neg (Negative) 05/14/22 15:36 Urine Urobilinogen Norm mg/dL (Negative) 05/14/22 15:36 Ur Leukocyte Esterase Negative (Negative) 05/14/22 15:36 Hepatitis A IgM Ab Non-reactive (Nonreactive) 05/14/22 23:20 Hep Bs Antigen Non-reactive (Nonreactive) 05/14/22 23:20 Hep Bs Antibody 3.5 (11.5-1000) L 05/14/22 23:20 Hep B Core Total Ab Non-reactive (Nonreactive) 05/14/22 23:20 Hepatitis C Antibody Non-reactive (Nonreactive) 05/14/22 23:20 HIV 1&2 Ab & HIV 1 Ag Non-reactive (Non-Reactiv) 05/14/22 23:20 HIV 1&2 Antibody Non-reactive (Non-Reactiv) 05/14/22 23:20 Vitals Last Vital Signs Temp 97.8 F 05/19/22 07:42 Pulse 88 05/19/22 07:42 Resp 16 05/19/22 07:42 BP 115/77 05/19/22 07:42 Pulse Ox 93 05/19/22 07:42 O2 Del Method 05/19/22 07:42 Discharge Plan Discharge Patient Disposition: Home Health Service Condition: Stable Prescriptions: New chlordiazepoxide HCl 25 mg Capsule 25 mg PO Q12H 7 Days Qty: 14 0RF midodrine 5 mg Tablet 5 mg PO TID 30 Days Qty: 90 0RF Continued guaifenesin 400 mg tablet 400 mg PO Q4H PRN (Reason: Congestion) omeprazole 40 mg capsule,delayed release(DR/EC) 40 mg PO DAILY allopurinol 300 mg tablet 300 mg PO DAILY folic acid 1 mg tablet 1 mg PO DAILY gabapentin 300 mg capsule 300 mg PO BEDTIME multivitamin with iron Tablet 1 tab PO DAILY thiamine HCl (vitamin B1) 100 mg tablet 100 mg PO DAILY paroxetine HCl 40 mg Tablet 40 mg PO DAILY venlafaxine 75 mg Tablet 75 mg PO DAILY fluticasone propionate 50 mcg/actuation [place],Suspension 2 spray INTRANASAL DAILY PRN (Reason: Nasal Congestion) Rx Instructions: administer into each nostril Vitamin D3 50 mcg (2,000 unit) Capsule 50 mcg PO DAILY Changed aspirin 325 mg tablet 81 mg PO DAILY 30 Days Qty: 30 0RF tamsulosin [Flomax] 0.4 mg Capsule 0.4 mg PO BEDTIME 30 Days Qty: 30 0RF Discontinued carvedilol 12.5 mg tablet 12.5 mg PO BID Rx Instructions: must administer with a meal/food lisinopril 10 mg tablet 10 mg PO DAILY cetirizine [Zyrtec] 10 mg Tablet 10 mg PO DAILY Discharge Orders: Discharge Order (Routine); Ordered 05/19/22 Ordered By: Cecile Kathuria Referrals: [facility] [Outside] Paula Mo MD [Primary Care Provider] - 4-7 days Discharge Diet: Usual diet Discharge Activity: Increase activity as tolerated Patient Instructions: Opioid Safety Discharge Attestations Time Spent in Discharge Care*: greater than 30 min Quality Metrics Clinical Quality Measures [ No reported AMI, CVA or VTE this stay] Coding Level of Care Code Acute Chg FW DC note Diagnoses ETOH abuse F10.10 Orthostatic hypotension I95.1 Falls W19.XXXA Dizziness R42 Leukopenia D72.819 Anemia D64.9 Neutropenia D70.9 Hypertension I10 GERD (gastroesophageal reflux disease) K21.9
[2022-05-19] MEDS: heparin 5,000 unit/mL INJ 1 mL 5000 UNIT SUBCUT (11:26)
--- NOTE | 2022-05-19 12:54 | PC.SOCIAL ---
IMM Updated Updated pt on IMM. No questions voiced. Provided pt a copy. Initialed, dated & timed copy in chart.
== END 2022-05-19 14:32 | disposition home health service (06) ==
LOC: ER 17:28 → MEDSURG 22:18
PROVIDERS: Internal Medicine; Admitting Provider Internal Medicine; Emergency Provider Family Medicine; PCP Family Medicine; Visit Provider Student in an Organized Health Care Education/Training Program
DX: F10.10 Alcohol abuse, uncomplicated (principal); I95.1 Orthostatic hypotension; R42 Dizziness and giddiness; D72.819 Decreased white blood cell count, unspecified; D64.9 Anemia, unspecified; D70.9 Neutropenia, unspecified; I10 Essential (primary) hypertension; K21.9 Gastro-esophageal reflux disease without esophagitis; Z91.81 History of falling; R33.9 Retention of urine, unspecified; R19.7 Diarrhea, unspecified; E87.6 Hypokalemia
CPT/HCPCS: 36415; 36416; 51702; 51798; 71045; 80053; 80503; 81003; 82140; 82962; 83690; 83735; 84100; 84145; 84484; 85025; 85610; 86705; 86706; 86709; 86803; 87340; 87806; 93005; 94640; 94664; 96361; 96365; 96366; 96372; 96375; 99285; G0378; J1644; J1940; J2405; J3411; J3475; J3480; J3490; J7030; J7040

== ENCOUNTER 2022-11-15 11:54 | Inpatient (IN) | payer OTHER, SELFPAY ==
[2022-11-15] VITALS (38 sets, daily range): BP systolic 118–162; BP diastolic 71–84; PULSE 98–126; RESP 14–18; TEMP 36.7–37.4; O2SAT 90–100; BMI 33.0; BMI 30.4
[2022-11-15 13:06] LABS: Basophils % 0.5 %; Hematocrit 23.6 % (42.0-52.0); Lymphocytes # 0.5 10^3/uL (0.8-4.8); Lymphocytes % 8.5 %; Mean Corpuscular HGB Conc 33.9 g/dL (30.0-36.0); Mean Corpuscular Hemoglobin 35.6 pg (28.0-34.0); Mean Corpuscular Volume 104.9 fl (80-94); Mean Platelet Volume 11.3 fL (7.4-10.4); Monocytes # 0.6 10^3/uL (0.2-0.9); Monocytes % 9.9 %; Neutrophils # 5.03 10^3/uL (1.8-7.7); Neutrophils % 80.3 %; Nucleated Red Blood Cells % 0 %; Platelet Count 59 10^3/cmm (130-400); Red Blood Count 2.25 10^6/uL (4.1-5.3); Red Cell Distribution Width 17.6 % (12.1-15.1); White Blood Count 6.3 10^3/uL (4.0-10.0)
[2022-11-15 13:07] LABS: INR 1.05 (0.8-1.2)
[2022-11-15 13:08] LABS: Partial Thromboplastin Time 26.6 SECONDS (23.9-36.7)
[2022-11-15 13:18] LABS: Alanine Aminotransferase 47 U/L (0-41); Albumin Level 4.5 g/dL (3.5-5.2); Alkaline Phosphatase 113 U/L (40-130); Anion Gap 28.3 (5-19); Aspartate Amino Transferase 92 U/L (0-40); Blood Urea Nitrogen 34 mg/dL (8-23); Carbon Dioxide 23 mmol/L (22-29); Chloride 90 mmol/L (98-107); Globulin 2.5 g/dL (1.3-4.6); Glucose 94 mg/dL (65-115); Osmolality Calculated 293 mOsm/kg (285-295); Potassium 3.3 mmol/L (3.5-5.1); Sodium 138 mmol/L (136-145); Total Bilirubin 1.6 mg/dL (0.15-1.2)
--- NOTE | 2022-11-15 13:46 | ED_ITS ---
HPI - GI Bleed General: Chief complaint: GI Bleed Stated complaint: N/V Passing blood in stool and in vomit Time Seen by Provider: 11/15/22 13:46 History of Present Illness: Mr. Sainz is a 72-year-old gentleman with longstanding history of alcohol abuse and continued alcohol abuse presenting to the emergency department for hematemesis and dark stools. He has been drinking heavily for approximately 1 month with poor p.o. intake. He noticed bloody emesis yesterday and subsequently has developed dark stools. Denies associated chest or significant abdominal pain. He does bleed easily. He feels generally unwell and has not been eating. Density symptoms is moderate. Course has worsened. He has had similar episodes in the past. No other specific changes in health, exacerbating, or alleviating factors identified. Onset (ago): day(s) Severity: moderate Context: history of GI bleed and liver disease Associated symptoms: Reports easy bruising, malaise, nausea, other bleeding and vomiting Review of Systems General: Reports: 10 or more systems reviewed and unremarkable except in HPI and below Const: Reports: malaise GI: Reports: nausea and vomiting [place]/Lymph: Reports: easy bruising PFSH ED PFSH: Medical History Diverticulosis large intestine w/o perforation or abscess w/bleeding [place] GERD (gastroesophageal reflux disease) History of nonmelanoma skin cancer HTN (hypertension) Surgical History History of ankle surgery History of colonoscopy with polypectomy History of knee replacement History of surgery on arm 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 No pertinent past surgical history Family History Mother , at age 89 Mini stroke Father , at age 54 Cancer Throat Social History Smoking and tobacco status: former smoker Alcohol intake: current Alcohol intake frequency: 3 or more drinks per day Caregiver/support person: Yes Lives independently: Yes Marital status: Single Current occupational status: retired History of recent travel: No Physical Exam Const: COMMON NORMALS: alert GENERAL APPEARANCE: cooperative and well developed HENMT: COMMON NORMALS: normocephalic and atraumatic HEAD & SCALP: normocephalic and atraumatic Eye: COMMON NORMALS: conjunctivae normal CONJUNCTIVA: Yes conjunctivae normal SCLERA: sclerae normal Neck/C-Spine: COMMON NORMALS: supple GENERAL: Yes trachea midline Resp: COMMON NORMALS: clear to auscultation bilaterally EFFORT & INSPECTION: Yes able to speak in complete sentences AUSCULTATION: clear to auscultation bilaterally Cardio: COMMON NORMALS: regular rate and regular rhythm RATE: regular rate RHYTHM: regular rhythm GI: COMMON NORMALS: Soft to palpation PALPATION: Yes Soft to palpation and No Tenderness to palpation present (GI) PERCUSSION: normal to percussion RECTAL EXAM: Yes normal sphincter tone, Yes Abnormal stool present Abnormal stool details: black stool, Yes heme positive stool 3+ and No tenderness Extremity: GENERAL: Yes normal exam except as noted and No edema Neuro: COMMON NORMALS: moves all extremities SENSORIUM/ORIENTATION: Yes alert and No Orientation impaired Psych: COMMON NORMALS: mental status grossly normal and Normal thought process present THOUGHT PROCESS: Normal thought process present Skin: NARRATIVE SKIN EXAM: Scattered contusions, no active bleeding Course Vital Signs: Vital signs: Vital Signs Temperature 98.6 F 11/17/22 12:12 Pulse Rate 100 11/17/22 12:12 Respiratory Rate 18 11/17/22 12:12 Blood Pressure 132/77 11/17/22 12:12 Pulse Oximetry 94 11/17/22 12:12 Oxygen Delivery Me thod 11/17/22 08:00 Oxygen Flow Rate 6 11/16/22 21:32 MDM - GI Bleed Medical Decision Making 72-year-old gentleman with history of longstanding alcohol abuse though no known varices or cirrhosis presenting to the emergency department for hematemesis and black stool. Exam as above. Patient mildly tachycardic initially. Patient is nontoxic and there is no evidence of acute surgical abdomen. Patient is not having active hematemesis. A broad differential considered and testing ordered as appropriate based on clinical likelihood and morbidity/mortality associated conditions. Labs notable for no leukocytosis, patient does have macrocytic anemia and thrombocytopenia. Metabolic panel with mild hypokalemia and elevated BUN, renal function is preserved. Total bilirubin is mildly elevated as are transaminases. No evidence of urinary tract infection. CT imaging notable for enlarged prostate, moderate hiatal hernia, no inflammatory changes. Overall no evidence of acute bleeding or esophageal varices. Patient treated in the emergency department empirically initially with antibiotics and also pantoprazole and IV fluids. Most likely etiology of patient's symptoms is upper GI bleed. Given findings on rectal exam as well as clinical history including laboratory studies with thrombocytopenia and borderline hemoglobin worse than prior I believe that the patient requires inpatient management. Case discussed with general surgery who is on-call for GI end will be a consult service. The results of ED evaluation were discussed with the patient including plan for admission due to requirement for level of care not available if discharged to prevent significant worsening/deterioration. Patient agreeable with plan. Discussed with hospitalist service who was agreeable to admit patient. Medical Records I reviewed the patient's medical records. Lab Data I reviewed the patient's lab results. 11/15/22 12:40 11/15/22 12:40 Radiology Impressions Chest/Abdomen/Pelvis CTA 11/15/22 13:53 IMPRESSION: 1. No evidence of pulmonary embolus. 2. No acute pulmonary infiltrates. No focal pneumonia or pleural fluid. 3. Diffuse fatty infiltration liver. 4. Markedly enlarged heterogeneous and nodular prostate suspicious for neoplasia. Evidence of bladder outlet obstruction. Recommend correlation for PSA. 5. Moderate esophageal hiatal hernia with partial intrathoracic stomach. 6. Sigmoid diverticulosis. No evidence of acute diverticulitis. Laboratory Results WBC 6.3 10^3/uL (4.0-10.0) 11/15/22 12:40 RBC 2.25 10^6/uL (4.1-5.3) L 11/15/22 12:40 Hgb 8.0 g/dL (11.7-16.6) L 11/15/22 12:40 Hct 23.6 % (42.0-52.0) L 11/15/22 12:40 MCV 104.9 fl (80-94) H 11/15/22 12:40 MCH 35.6 pg (28.0-34.0) H 11/15/22 12:40 MCHC 33.9 g/dL (30.0-36.0) 11/15/22 12:40 RDW 17.6 % (12.1-15.1) H 11/15/22 12:40 Plt Count 59 10^3/cmm (130-400) L 11/15/22 12:40 MPV 11.3 fL (7.4-10.4) H 11/15/22 12:40 Neut % (Auto) 80.3 % 11/15/22 12:40 Lymph % (Auto) 8.5 % 11/15/22 12:40 [place] % (Auto) 9.9 % 11/15/22 12:40 Eos % (Auto) 0.0 % 11/15/22 12:40 Baso % (Auto) 0.5 % 11/15/22 12:40 Neut # (Auto) 5.03 10^3/uL (1.8-7.7) 11/15/22 12:40 Lymph # (Auto) 0.5 10^3/uL (0.8-4.8) L 11/15/22 12:40 [place] # (Auto) 0.6 10^3/uL (0.2-0.9) 11/15/22 12:40 Eos # (Auto) 0.0 10^3/uL (0.0-0.8) 11/15/22 12:40 Baso # (Auto) 0.0 10^3/uL (0.0-0.1) 11/15/22 12:40 Nucleated RBC % (auto) 0 % 11/15/22 12:40 Nucleated RBCs # 0.0 /100WBC 11/15/22 12:40 PT 14.00 SECONDS (12.1-14.9) 11/15/22 12:40 INR 1.05 (0.8-1.2) 11/15/22 12:40 APTT 26.6 SECONDS (23.9-36.7) 11/15/22 12:40 Sodium 138 mmol/L (136-145) 11/15/22 12:40 Potassium 3.3 mmol/L (3.5-5.1) L 11/15/22 12:40 Chloride 90 mmol/L (98-107) L 11/15/22 12:40 Carbon Dioxide 23 mmol/L (22-29) 11/15/22 12:40 Anion Gap 28.3 (5-19) H 11/15/22 12:40 BUN 34 mg/dL (8-23) H 11/15/22 12:40 Creatinine 1.0 mg/dL (0.7-1.2) 11/15/22 12:40 GFR Calculation Not Reportable 11/15/22 12:40 Glucose 94 mg/dL (65-115) 11/15/22 12:40 Calculated Osmolality 293 mOsm/kg (285-295) 11/15/22 12:40 Calcium 9.0 mg/dL (8.5-10.5) 11/15/22 12:40 Total Bilirubin 1.6 mg/dL (0.15-1.2) H 11/15/22 12:40 AST 92 U/L (0-40) H 11/15/22 12:40 ALT 47 U/L (0-41) H 11/15/22 12:40 Alkaline Phosphatase 113 U/L (40-130) 11/15/22 12:40 Total Protein 7.0 g/dL (6.6-8.7) 11/15/22 12:40 Albumin 4.5 g/dL (3.5-5.2) 11/15/22 12:40 Globulin 2.5 g/dL (1.3-4.6) 11/15/22 12:40 Blood Type A Positive 11/15/22 12:40 Rho(D) Type Positive 11/15/22 12:40 Antibody Screen Negative 11/15/22 12:40 Crossmatch See Detail 11/15/22 12:40 Discharge Plan Discharge Patient Disposition: Admitted As Inpatient Admit Provider: Desmond Matson Clinical Impression: Upper gastrointestinal hemorrhage, Alcohol abuse, Acute on chronic anemia, Thrombocytopenia, Hypokalemia Condition: Stable Discharge Diet: Cardiac Discharge Activity: Resume usual activity and Increase activity as tolerated Coding Level of Care Code 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
--- NOTE | 2022-11-15 13:53 | CT_ITS ---
WS: [id number] CTA CHEST FOLLOWED BY ABDOMEN AND PELVIS TECHNIQUE: Contrast enhanced CTA of the chest followed by, abdomen, and pelvis with coronal and sagit marge reformatted images and additional MIP Images. CLINICAL INFORMATION: hematemesis, gi bleed COMPARISON: February 06, 2021 DLP: 1384.[address] scans at [facility] use at least one of these dose optimization techniques: automated e xposure control; mA and/or kV adjustment per patient size (includes targeted exams where dose is matc hed to clinical indication); or iterative reconstruction. FINDINGS: Proximal main pulmonary arteries are normal. Normal segmental and subsegmental pulmonary arteries. No evidence of pulmonary embolus. Normal caliber thoracic aorta. Aortic calcification. Coronary calcifi cation. No mediastinal or hilar lymphadenopathy. Moderate esophageal hiatal hernia. No axillary lymph adenopathy. Normal caliber descending thoracic aorta. A few calcified granulomas. No suspicious pulmo nary infiltrates. No focal pneumonia or pleural fluid. No pericardial effusion. Diffuse fatty infiltration liver. Normal portal vein and splenic vein. Normal spleen. Moderate esopha geal hiatal hernia. Partial intrathoracic stomach. Adrenal glands are normal. No hydronephrosis in ei ther kidney. Normal renal parenchymal enhancement. Stable RIGHT renal cyst measuring 4.0 x 3.7 CM. Fa tty atrophy of the pancreas. Normal caliber abdominal aorta. Aortic calcification. Markedly enlarged heterogeneous nodular prostate measuring 4.5 x 4.8 cm. Evidence of bladder outlet o bstruction. Mild thickening of the seminal vesicles bilaterally. Sigmoid diverticulosis. No evidence of high-grade small or large bowel obstruction. Chronic anterior wedging at L2. Disc space narrowing worse L5-S1. CT/CT [facility] [id number] IMPRESSION: 1. No evidence of pulmonary embolus. 2. No acute pulmonary infiltrates. No focal pneumonia or pleural fluid. 3. Diffuse fatty infiltration liver. 4. Markedly enlarged heterogeneous and nodular prostate suspicious for neoplas ia. Evidence of bladder outlet obstruction. Recommend correlation for PSA. 5. Moderate esophageal hiatal hernia with partial intrathoracic stomach. 6. Sigmoid diverticulosis. No evidence of acute diverticulitis.
[2022-11-15] MEDS: pantoprazole 40 mg SDV 80 MG IVP (14:08)
[2022-11-15] MEDS: cefTRIAXone 1,000 MG in sodium chloride 0.9% (plus) 50 ML 100 MG IV (14:11)
[2022-11-15] MEDS: iohexol 350 mg/mL 500 mL Btl (per mL) IV (14:39)
[2022-11-15] MEDS: sodium chloride 0.9% 500 ML 999 ML IV (15:57)
--- NOTE | 2022-11-15 17:54 | P.HP_ITS ---
Providers/Chief Complaint Admitting Physician: Desmond Matson MD Primary Care Provider: Paula Mo MD Chief Complaint: N/V Passing blood in stool and in vomit History of Present Illness Trenton Sainz is a 72 year old male with past medical history of alcohol abuse, urinary retention presents to the ER today because of throwing up/coughing up blood today morning along with soft tarry black bowel movements for last 2 days. Patient is not sure if he coughed up blood to rule out blood today morning. Complains of dizziness. States he drinks vodka daily. Last consumption of alcohol today morning. States he drank around half to a quarter of bottle today. Denies any abdominal pain. Denies any difficulty in breathing. Not really sure if he has had an endoscopy before. Had colonoscopy earlier in 2021 which was consistent with diverticulosis and polyps without any active bleeding On examination heart rate running more than 120s, saturating well on room air, is hemodynamically stable. Patient is AOx3. In the ER patient was given 1 L of fluid bolus, Protonix [address] abdomen pelvis chest was done which ruled out esophageal varices. Review of Systems General: Reports: 10 or more systems reviewed and unremarkable except in HPI and below Const: Denies: fever(s), chills, body aches, change in appetite, change in weight, malaise, night sweats, diaphoresis, change in sleep pattern, daytime sleepiness or snoring Eyes: Denies: change in vision, blurry vision, photophobia, eye discomfort or eye discharge ENMT: Denies: throat pain, enlarged tonsils, hoarseness, mouth pain, oral sores, dry mouth, tinnitus, nasal congestion or post nasal drip Card: Denies: chest pain, palpitations, irregular heart rhythm, edema, swelling of feet/ankles, lightheadedness, syncope, pre-syncope, dyspnea on exertion, orthopnea, leg pain with exertion or acrocyanosis Resp: Denies: dyspnea, productive cough, non-productive cough, wheezing, stridor, pain on inspiration, change in phlegm color, hemoptysis or chest congestion GI: Denies: abdominal pain, nausea, vomiting, hematemesis, coffee ground emesis, dysphagia, heartburn, diarrhea, constipation, bloating, GI cramping, change in bowel habits, pain on defecation, hematochezia or melena : Denies: flank pain, difficulty urinating, dysuria, urinary frequency, urinary urgency, urinary hesitancy, urinary dribbling, difficulty starting urination, change in urine stream, nocturia or hematuria Musc: Denies: neck pain, back pain, extremity pain, joint pain, joint swelling, joint redness, joint stiffness or limited range of motion Neuro: Denies: headache(s), numbness in extremities, weakness in extremities, sensory changes, lack of coordination, difficulty walking, frequent falls, dizziness, vertigo, confusion, Slurred speech present, difficulty communicating thoughts or seizure-like activity Psych: Denies: anxiety, depression, mood swings, panic attacks, hopelessness or irritability Endo: Denies: polyuria, polydipsia, tired all the time, cold intolerance, excessive sweating, flushing or heat intolerance Barrera/Lymph: Denies: easy bruising or easy bleeding All/Imm: Denies: tongue swelling, facial swelling or acute wheezing Medications/Allergies Home Medications Medication Instructions Recorded Confirmed Last Taken Type guaifenesin 400 mg tablet 400 mg PO Q4H PRN Congestion 03/04/21 11/15/22 04/14/22 History omeprazole 40 mg capsule,delayed 40 mg PO DAILY 03/04/21 11/15/22 11/15/22 History release allopurinol 300 mg tablet 300 mg PO DAILY 02/03/22 11/15/22 11/15/22 History folic acid 1 mg tablet 1 mg PO DAILY 02/03/22 11/15/22 11/15/22 History gabapentin 300 mg capsule 300 mg PO BEDTIME 02/03/22 11/15/22 11/14/22 History multivitamin with iron 1 tab PO DAILY 02/03/22 11/15/22 11/15/22 History thiamine HCl (vitamin B1) 100 mg 100 mg PO DAILY 02/03/22 11/15/22 11/15/22 History tablet cholecalciferol (vitamin D3) 50 50 mcg PO DAILY 05/14/22 11/15/22 11/15/22 History mcg (2,000 unit) capsule (Vitamin D3) fluticasone propionate 50 2 spray intranasal DAILY PRN Nasal 05/14/22 11/15/22 Unknown History mcg/actuation nasal Congestion spray,suspension venlafaxine 75 mg tablet 75 mg PO DAILY 05/14/22 11/15/22 11/15/22 History aspirin 325 mg tablet 81 mg PO DAILY 30 days #30 tabs 05/19/22 11/15/22 11/15/22 Rx carvedilol 12.5 mg tablet 6.25 mg PO BID 11/15/22 11/15/22 11/15/22 History celecoxib 100 mg capsule (Celebrex) 100 mg PO DAILY 11/15/22 11/15/22 11/15/22 History cetirizine 10 mg tablet (Zyrtec) 10 mg PO DAILY 11/15/22 11/15/22 11/15/22 History tamsulosin 0.4 mg capsule (Flomax) 0.8 mg PO BEDTIME 11/15/22 11/15/22 11/14/22 History Allergies Allergy/AdvReac Type Severity Reaction Status Date / Time No Known Allergies Allergy Verified 08/13/22 09:02 PFSH Acute PFSH: Medical History Diverticulosis large intestine w/o perforation or abscess w/bleeding Falls GERD (gastroesophageal reflux disease) History of nonmelanoma skin cancer HTN (hypertension) Surgical History History of ankle surgery History of colonoscopy with polypectomy History of knee replacement History of surgery on arm 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 No pertinent past surgical history Family History Mother , at age 89 Mini stroke Father , at age 54 Cancer Throat Social History (Updated 11/15/22 @ 18:14 by Desmond Matson MD) Smoking and tobacco status: former smoker Alcohol intake: current Alcohol intake frequency: 3 or more drinks per day Caregiver/support person: Yes Lives independently: Yes Marital status: Single Current occupational status: retired History of recent travel: No Vitals/I&O/Wt Last Vital Signs Temp 99.3 F 11/15/22 12:01 Pulse 126 H 11/15/22 14:27 Resp 14 11/15/22 12:01 BP 151/84 11/15/22 14:27 Pulse Ox 100 11/15/22 17:15 O2 Del Method 11/15/22 14:27 11/15/22 11/15/22 11/15/22 06:59 14:59 22:59 Intake Total 50 / 50 Balance 50 / 50 Weight last 48 hrs Weight 104.326 kg Physical Exam Narrative: General: No acute distress, AO x3, slightly occasionally confused HEENT: Pallor present, pupils bilaterally equal and reactive Chest: Normal vesicular breath sounds, no added sounds, equal good air entry bilaterally CVS: S1-S2 regular, no murmurs, no tachycardia, no gallops, no rubs Abdomen: Soft, nontender, no organomegaly, bowel sounds present Neuro: No focal deficits, no facial deformity, AO x3, power 5/5 in all limbs Data 11/15/22 12:40 11/15/22 12:40 A&P Assessment and plan (1) Upper gastrointestinal hemorrhage: History of daily alcohol abuse. Denies any similar complaints in the past though patient is a poor historian. Last colonoscopy in 2021 negative for active bleeding but showed polyps and diverticulosis. CT abdomen pelvis negative for esophageal varices. Surgery consulted in the ER. NPO. IV Protonix 40 mg twice daily. Monitor vitals. Telemetry. IV fluids at 75 cc/h. (2) Alcohol abuse: States he continues to a pint to half a bottle of vodka daily. Check alcohol level, urine drug screen. [facility] protocol. Banana bag. (3) Acute on chronic anemia: Transfuse if hemoglobin drops below 7. Check iron panel, vitamin B12, folate levels. Management of GI bleed as above. (4) Thrombocytopenia: New. Most likely secondary to chronic alcohol abuse. Denies any difficulty in breathing or concern for viral prodrome. Will transfuse if platelet counts fall below 20 or patient starts having active bleeding again. (5) Hypokalemia: Replete. Recheck in the morning. Plan Full code. SCD for DVT prophylaxis Protonix will suffice as PUD prophylaxis Attestations Medical Necessity Statement*: Admission for management of acute on chronic anemia in setting of GI bleed in a patient with chronic alcohol abuse Coding Level of Care Code 71490 Moderate MDM includes risk/complexity, reviewing previous or external records, reviewing test results, ordering lab/other test(s), speaking with independent historian (other than patient), independently interpretating test(s) (not separately recorded) and discussion of management or test(s) w/ other healthcare professional and Moderate Time for a total of 60 minutes, includes reviewing past or interval history, examining/interviewing patient, placing orders, counseling patient/family/other support, updating patient/family/other support, discussing plan of care with staff, communicating with other healthcare providers, documenting encounter and coordinating care Diagnoses Upper gastrointestinal hemorrhage K92.2 Alcohol abuse F10.10 Acute on chronic anemia D64.9 Thrombocytopenia D69.6 Hypokalemia E87.6
[2022-11-15] MEDS: pantoprazole 40 mg SDV IVP (18:33)
[2022-11-15 18:57] LABS: Hematocrit 22.2 % (42.0-52.0); Hemoglobin 7.3 g/dL (11.7-16.6)
[2022-11-15 19:18] LABS: Gamma Glutamyl Transferase 100 U/L (8-61)
[2022-11-15 19:37] LABS: Iron 118 ug/dL (59-158); Percent Saturation 56.7 % (20-50); Thyroid Stimulating Hormone 3.65 uIU/mL (0.27-4.20); Total Iron Binding Capacity 208 mcg/dl; Unsaturated Iron Binding 90 ug/dL (112-347); Vitamin B12 652 pg/mL (232-1245)
[2022-11-15] MEDS: folic acid 1 MG, multivitamin inj 10 ML, thiamine 100 MG in sodium chloride 0.9% 1,000 ML 252.8 MG IV (19:38)
[2022-11-15] MEDS: metoprolol tartrate 25 mg Tablet PO (19:38)
[2022-11-15 19:40] LABS: Alcohol Level < 10 mg/dL (0-10)
[2022-11-15 19:47] LABS: Folate Level > 20.0 ng/mL (4.5-32.2)
[2022-11-15 19:54] LABS: Amphetamines Screen Urine Negative (Negative); Barbiturates Screen Urine Negative (Negative); Benzodiazepines Screen Urine Negative (Negative); Cocaine Screen Urine Negative (Negative); Opiate Screen Urine Negative (Negative); PCP Screen Urine Negative (Negative); THC Screen Urine Negative (Negative)
[2022-11-15 20:02] LABS: Add Urine Microscopic? YES; Bilirubin Urine 1+ (Negative); Blood Urine Neg (Negative); Glucose Urine UA Norm (Normal); Ketones Urine 3+ (Negative); Leukocyte Esterase Urine Negative (Negative); Nitrate Urine Negative (Negative); Protein Urine Trace (Negative); RBC Urine RARE /hpf (0-2); Specific Gravity, Urine 1.005 (1.005-1.030); Squamous Epithelial Cell Urine 0-4 /hpf (0-5); Urine Appearance Hazy (CLEAR); Urine Color Yellow (Yellow); Urobilinogen Urine 1 mg/dL (Negative); WBC Urine RARE /hpf (0-5); pH Urine 5 (5-7)
[2022-11-15 20:03] LABS: Add Urine Culture? No; Bacteria Urine TRACE /hpf; Mucus Urine 2+ /hpf; Sperm Urine 3+ /hpf
[2022-11-15] MEDS: tamsulosin 0.4 mg Capsule 0.8 MG PO (21:23)
[2022-11-15] MEDS: gabapentin 300 mg Capsule PO (21:23)
[2022-11-15] MEDS: dextrose 5%-ns + KCl 20 20 MEQ/1,000 ML BAG 75 MEQ IV (23:50)
[2022-11-16] VITALS (16 sets, daily range): BP systolic 100–156; BP diastolic 39–99; PULSE 82–103; RESP 15–18; TEMP 36.1–37; O2SAT 92–100
[2022-11-16] MEDS: pantoprazole 40 mg SDV IVP ×2 (05:24→18:38)
[2022-11-16 06:04] LABS: Chol HDL Ratio 1.65 mg/dL (1.0-5.00); Cholesterol 114 mg/dL (0-200); HDL Cholesterol 69 mg/dL (60-100); LDL Cholesterol Calculated 34 mg/dL (50-129); Triglycerides 55 mg/dL (0-150); VLDL Cholestrol Calculation 11 mg/dL (0-30)
[2022-11-16 06:05] LABS: Alanine Aminotransferase 36 U/L (0-41); Albumin Level 3.8 g/dL (3.5-5.2); Alkaline Phosphatase 88 U/L (40-130); Anion Gap 19.1 (5-19); Aspartate Amino Transferase 68 U/L (0-40); Blood Urea Nitrogen 24 mg/dL (8-23); Carbon Dioxide 27 mmol/L (22-29); Chloride 100 mmol/L (98-107); Creatinine Clr Calc Pharmacy 95.8086; Glucose 106 mg/dL (65-115); Magnesium 1.2 mg/dL (1.7-2.3); Osmolality Calculated 300 mOsm/kg (285-295); Phosphorus 1.9 mg/dL (2.5-4.5); Potassium 3.1 mmol/L (3.5-5.1); Sodium 143 mmol/L (136-145); Total Bilirubin 1.1 mg/dL (0.15-1.2); Total Protein 5.8 g/dL (6.6-8.7)
[2022-11-16 06:08] LABS: Basophils % 0.4 %; Eosinophils # 0.1 10^3/uL (0.0-0.8); Eosinophils % 1.5 %; Lymphocytes # 0.7 10^3/uL (0.8-4.8); Lymphocytes % 15.6 %; Mean Corpuscular Hemoglobin 35.5 pg (28.0-34.0); Mean Corpuscular Volume 107.7 fl (80-94); Mean Platelet Volume 13.1 fL (7.4-10.4); Monocytes # 0.5 10^3/uL (0.2-0.9); Monocytes % 10.1 %; Neutrophils # 3.39 10^3/uL (1.8-7.7); Neutrophils % 71.6 %; Nucleated Red Blood Cells % 0 %; Platelet Count 58 10^3/cmm (130-400); Red Blood Count 1.83 10^6/uL (4.1-5.3); Red Cell Distribution Width 17.8 % (12.1-15.1); White Blood Count 4.7 10^3/uL (4.0-10.0)
[2022-11-16 06:14] LABS: Hemoglobin 6.5 g/dL (11.7-16.6)
[2022-11-16 06:17] LABS: Hematocrit 19.7 % (42.0-52.0)
--- NOTE | 2022-11-16 08:10 | PM.CONSULT ---
Providers/Reason For Consult Consulting Physician/Specialty*: Dr. Home Jacob, DO/General surgery Reason for Consult*: Upper GI bleed Attending Physician: Desmond Matson MD Primary Care Provider: Paula Mo MD History of Present Illness History of Present Illness Trenton Sainz is a 72 year old male who presents to the hospital with a 2-day history of coffee-ground emesis and melena. He is a known alcoholic and reportedly drank maybe half a bottle of vodka before coming to the hospital yesterday. He has a hemoglobin of 6.5 this morning, down from 8 yesterday. We are transfusing 2 units and giving 2 doses of tranexamic acid. He denies any abdominal pain. CT is significant for fatty infiltration of the liver and heterogenous prostate. Review of Systems General: Reports: 10 or more systems reviewed and unremarkable except in HPI and below Medications/Allergies Home Medications Medication Instructions Recorded Confirmed Last Taken Type guaifenesin 400 mg tablet 400 mg PO Q4H PRN Congestion 03/04/21 11/15/22 04/14/22 History omeprazole 40 mg capsule,delayed 40 mg PO DAILY 03/04/21 11/15/22 11/15/22 History release allopurinol 300 mg tablet 300 mg PO DAILY 02/03/22 11/15/22 11/15/22 History folic acid 1 mg tablet 1 mg PO DAILY 02/03/22 11/15/22 11/15/22 History gabapentin 300 mg capsule 300 mg PO BEDTIME 02/03/22 11/15/22 11/14/22 History multivitamin with iron 1 tab PO DAILY 02/03/22 11/15/22 11/15/22 History thiamine HCl (vitamin B1) 100 mg 100 mg PO DAILY 02/03/22 11/15/22 11/15/22 History tablet cholecalciferol (vitamin D3) 50 50 mcg PO DAILY 05/14/22 11/15/22 11/15/22 History mcg (2,000 unit) capsule (Vitamin D3) fluticasone propionate 50 2 spray intranasal DAILY PRN Nasal 05/14/22 11/15/22 Unknown History mcg/actuation nasal Congestion spray,suspension venlafaxine 75 mg tablet 75 mg PO DAILY 05/14/22 11/15/22 11/15/22 History aspirin 325 mg tablet 81 mg PO DAILY 30 days #30 tabs 05/19/22 11/15/22 11/15/22 Rx carvedilol 12.5 mg tablet 6.25 mg PO BID 11/15/22 11/15/22 11/15/22 History celecoxib 100 mg capsule (Celebrex) 100 mg PO DAILY 11/15/22 11/15/22 11/15/22 History cetirizine 10 mg tablet (Zyrtec) 10 mg PO DAILY 11/15/22 11/15/22 11/15/22 History tamsulosin 0.4 mg capsule (Flomax) 0.8 mg PO BEDTIME 11/15/22 11/15/22 11/14/22 History Allergies Allergy/AdvReac Type Severity Reaction Status Date / Time No Known Allergies Allergy Verified 08/13/22 09:02 Current Medications Generic Name Dose Route Start Last Admin Trade Name Freq PRN Reason Stop Dose Admin Gabapentin 300 mg 11/15/22 21:00 11/15/22 21:23 Gabapentin 300 Mg Capsule PO 300 mg BEDTIME PRAVEENA Administration Potassium Chloride/Dextrose/Sod Cl 20 meq in 1,000 mls @ 75 mls/hr 11/15/22 19:00 11/15/22 23:50 Dextrose 5%-Ns + Kcl 20 IV 75 mls/hr .[id number] PRAVEENA Administration Metoprolol Tartrate 25 mg 11/15/22 17:56 11/15/22 21:24 Metoprolol Tartrate 25 Mg Tablet PO Not Given BID@0900,2100 PRAVEENA Pantoprazole Sodium 40 mg 11/15/22 18:00 11/16/22 05:24 Pantoprazole 40 Mg Sdv IVP 40 mg Q12H PRAVEENA Administration Tamsulosin HCl 0.8 mg 11/15/22 21:00 11/15/22 21:23 Tamsulosin 0.4 Mg Capsule PO 0.8 mg BEDTIME PRAVEENA Administration PFSH Acute PFSH: Medical History Diverticulosis large intestine w/o perforation or abscess w/bleeding Falls GERD (gastroesophageal reflux disease) History of nonmelanoma skin cancer HTN (hypertension) Surgical History History of ankle surgery History of colonoscopy with polypectomy History of knee replacement History of surgery on arm 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 holiness No pertinent past surgical history Family History Mother , at age 89 Mini stroke Father , at age 54 Cancer Throat Social History Smoking and tobacco status: former smoker Alcohol intake: current Alcohol intake frequency: 3 or more drinks per day Caregiver/support person: Yes Lives independently: Yes Marital status: Single Current occupational status: retired History of recent travel: No Vitals/I&O/Wt Last Vital Signs Temp 98.3 F 11/16/22 04:00 Pulse 103 H 11/16/22 06:00 Resp 15 11/16/22 04:00 BP 123/73 11/16/22 04:00 Pulse Ox 97 11/16/22 04:00 O2 Del Method 11/16/22 04:00 11/15/22 11/16/22 11/16/22 22:59 06:59 14:59 Intake Total 790 / 790 1011.2 / 1801.2 Output Total 400 / 400 300 / 700 Balance 390 / 390 711.2 / 1101.2 Weight last 48 hrs Weight 223 lb 5 oz Weight 212 lb 9 oz Weight 230 lb Physical Exam Narrative: General : Patient is well developed , no acute distress, oriented x3 Head : Normal cephalic, a-traumatic. Ears : Pinnae and external canal are normal. Hearing is normal. Eyes : PERRLA, Sclera and injection are normal. No conjunctival discharge. Nose : Mucous membranes are without erythema. Throat : buccal mucosa is normal, gums are without significant recession or hypertrophy. Lungs : Equal chest rise bilaterally, no use of accessory muscles, trachea is midline. Cor : Rate and rhythm are normal. Abdomen : Soft, ND, NT, no g/r/m Extremities : No edema, no cyanosis or clubbing, dorsalis pedis pulses are present bilaterally, non-tender to palpation of calves. Upper extremities are normal bilaterally. Back : non-tender to palpation, no CVA tenderness. Neuro : CN II - XII intact, Upper and lower extremities have equal and full strength Data 11/16/22 05:03 11/16/22 05:03 A&P Assessment and plan (1) Upper gastrointestinal hemorrhage: (2) Alcohol abuse: (3) Acute on chronic anemia: (4) GERD (gastroesophageal reflux disease): (5) Hypertrophy of prostate: Plan Transfused 2 units PRBCs 2 doses of tranexamic acid Protonix twice daily Recommend urology consult as an outpatient-management per medicine EGD at 1215 today The risks and benefits of the procedure, including bleeding, infection, intestinal perforation requiring surgery, missed lesion were explained to the patient. The patient is understanding of the risks and wishes to proceed. Coding Level of Care Code Acute Code for [facility] Fwd Diagnoses Upper gastrointestinal hemorrhage K92.2 Alcohol abuse F10.10 Acute on chronic anemia D64.9 GERD (gastroesophageal reflux disease) K21.9 Hypertrophy of prostate N40.0
[2022-11-16] MEDS: multivitamin therapeutic Tablet 1 TAB PO (08:28)
[2022-11-16] MEDS: thiamine 100 mg Tablet PO (08:29)
[2022-11-16] MEDS: allopurinol 300 mg Tablet PO (08:29)
[2022-11-16] MEDS: venlafaxine 75 mg Tablet PO (08:29)
[2022-11-16] MEDS: folic acid 1 mg Tablet PO (08:29)
[2022-11-16] MEDS: metoprolol tartrate 25 mg Tablet PO ×2 (09:52→21:25)
--- NOTE | 2022-11-16 10:02 | PC.CHAP ---
Pastoral Care Encounter/Spiritual Assessment Type of Contact [] Declined telecommunications clerk visit [] Patient/Family/Request visit [] Outpatient visit [] Follow-up visit [] Physician referral [] Code/Alert [x] Routine visit [] Staff referral [] Actively dying [] Patient sleeping [] Family support [] [] Out of room [] Palliative care [] [] Receiving care in room [] Pre-surgical visit [] Trauma [] Long length of stay [] ICU visit [] Other: Relational/Emotional Strength [x] Patient feels connected with others/family/visitors/staff [] Distress [] Loneliness/isolation [] Abandonment Spirituality of Patient [x] Person of Grace [] Attends Uatsdin of their Grace [x] Believes in Prayer [] Reads Bible or Cheondoism materials [] There are Spiritual issues to be addressed Global Human Resources Director Interventions [x] Prayer [x] Active listening [] Non-anxious presence [x] Spiritual/emotional support [] Crisis/trauma care [] Spiritual counseling [] Bereavement support [] Provided bereavement packet [] Provided Bible/devotional materials [] Provided toy/stuffed animal, coloring book to patient or family member [] Provided Communion [] Anointing/[place] [] Salvation [x] Completed spiritual assessment [] Other: Impact on Illness or Injury [] Angry [] Fearful [] Anxious [] Often cries [] Exhaustion [] Unable to work [] Unable to attend roman catholic [] Unable to walk/stand [] Unable to read [] Unable to drive [] Unable to eat/drink [] Unable to sleep [] Unable to be with family [] Patient intubated [] Other: Summary Time spent with patient 10 min
[2022-11-16 10:57] LABS: Estmated Average Glucose 74; Hemoglobin A1C 4.2 % (4.0-6.0)
[2022-11-16] MEDS: sodium chloride 0.9% 1,000 ML 30 ML IV ×2 (10:58→17:00)
--- NOTE | 2022-11-16 12:40 | ANES.PREANE2 ---
Documented by User: Reza العلي Jr, COFFEE TASTER 11/16/22 12:45 Pre-Anesthetic Assessment Height/Weight: Height 1.78 m Weight 101.293 kg Temp Pulse Resp BP Pulse Ox O2 Del Method 98.3 F 94 18 156/85 96 11/16/22 10:34 11/16/22 10:34 11/16/22 10:34 11/16/22 10:34 11/16/22 10:34 11/16/22 10:34 Preop Diagnosis: History of colon polyps Operation Date: 11/16/22 12:15 Proposed Procedures p EGD(Not Applicable) - Home Jacob DO Familial anesthetic complications: none Was Beta Jorge taken within 24 hours: N/A Was Clonidine taken within 24 hours: N/A Last Intake: 23:00 Social Alcohol (1pint a day) and No tobacco Exam alert, oriented x 3, clear to auscultation bilaterally and regular rate & rhythm Airway Submandibular: within normal limits Cervical ROM: within normal limits Mallampati: Class II Dentition: chipped and full Comments: Comments: poor with mulitple missing Pulmonary None reported CV/HEM Anemia and Hypertension None reported Hepatic None reported GI Gastroesophageal Reflux Disease Metabolic None reported Musc/skel Lower Back Pain and Osteoarthritis/DJD Neuropsych Cerebrovascular Accident (8 years. [facility]) Anesthetic Plan ASA status: 3 Anesthesia: MAC Medications/Allergies Home Medications Medication Instructions Recorded Confirmed Last Taken Type guaifenesin 400 mg tablet 400 mg PO Q4H PRN Congestion 03/04/21 11/15/22 04/14/22 History omeprazole 40 mg capsule,delayed 40 mg PO DAILY 03/04/21 11/15/22 11/15/22 History release allopurinol 300 mg tablet 300 mg PO DAILY 02/03/22 11/15/22 11/15/22 History folic acid 1 mg tablet 1 mg PO DAILY 02/03/22 11/15/22 11/15/22 History gabapentin 300 mg capsule 300 mg PO BEDTIME 02/03/22 11/15/22 11/14/22 History multivitamin with iron 1 tab PO DAILY 02/03/22 11/15/22 11/15/22 History thiamine HCl (vitamin B1) 100 mg 100 mg PO DAILY 02/03/22 11/15/22 11/15/22 History tablet cholecalciferol (vitamin D3) 50 50 mcg PO DAILY 05/14/22 11/15/22 11/15/22 History mcg (2,000 unit) capsule (Vitamin D3) fluticasone propionate 50 2 spray intranasal DAILY PRN Nasal 05/14/22 11/15/22 Unknown History mcg/actuation nasal Congestion spray,suspension venlafaxine 75 mg tablet 75 mg PO DAILY 05/14/22 11/15/22 11/15/22 History aspirin 325 mg tablet 81 mg PO DAILY 30 days #30 tabs 05/19/22 11/15/22 11/15/22 Rx carvedilol 12.5 mg tablet 6.25 mg PO BID 11/15/22 11/15/22 11/15/22 History celecoxib 100 mg capsule (Celebrex) 100 mg PO DAILY 11/15/22 11/15/22 11/15/22 History cetirizine 10 mg tablet (Zyrtec) 10 mg PO DAILY 11/15/22 11/15/22 11/15/22 History tamsulosin 0.4 mg capsule (Flomax) 0.8 mg PO BEDTIME 11/15/22 11/15/22 11/14/22 History Allergies Allergy/AdvReac Type Severity Reaction Status Date / Time No Known Allergies Allergy Verified 08/13/22 09:02 Current Medications Generic Name Dose Route Start Last Admin Trade Name Freq PRN Reason Stop Dose Admin Allopurinol 300 mg 11/16/22 09:00 11/16/22 08:29 Allopurinol 300 Mg Tablet PO 300 mg DAILY PRAVEENA Administration Folic Acid 1 mg 11/16/22 09:00 11/16/22 08:29 Folic Acid 1 Mg Tablet PO 1 mg DAILY PRAVEENA Administration Gabapentin 300 mg 11/15/22 21:00 11/15/22 21:23 Gabapentin 300 Mg Capsule PO 300 mg BEDTIME PRAVEENA Administration Potassium Chloride/Dextrose/Sod Cl 20 meq in 1,000 mls @ 75 mls/hr 11/15/22 19:00 11/16/22 09:51 Dextrose 5%-Ns + Kcl 20 IV 0 mls/hr .[id number] PRAVEENA Infusion Sodium Chloride 1,000 mls @ 30 mls/hr 11/16/22 10:45 11/16/22 10:58 Sodium Chloride 0.9% IV 11/17/22 10:44 30 mls/hr .Q24H PRAVEENA Administration Metoprolol Tartrate 25 mg 11/15/22 17:56 11/16/22 09:52 Metoprolol Tartrate 25 Mg Tablet PO 25 mg BID@0900,2100 PRAVEENA Administration Multivitamins Therapeutic 1 tab 11/16/22 09:00 11/16/22 08:28 Multivitamin Therapeutic Tablet PO 1 tab DAILY PRAVEENA Administration Pantoprazole Sodium 40 mg 11/15/22 18:00 11/16/22 05:24 Pantoprazole 40 Mg Sdv IVP 40 mg Q12H PRAVEENA Administration Tamsulosin HCl 0.8 mg 11/15/22 21:00 11/15/22 21:23 Tamsulosin 0.4 Mg Capsule PO 0.8 mg BEDTIME PRAVEENA Administration Thiamine Mononitrate 100 mg 11/16/22 09:00 11/16/22 08:29 Thiamine 100 Mg Tablet PO 100 mg DAILY PRAVEENA Administration Venlafaxine HCl 75 mg 11/16/22 09:00 11/16/22 08:29 Venlafaxine 75 Mg Tablet PO 75 mg DAILY PRAVEENA Administration PFSH Anesthesia Medical History Diverticulosis large intestine w/o perforation or abscess w/bleeding [place] GERD (gastroesophageal reflux disease) History of nonmelanoma skin cancer HTN (hypertension) Surgical History History of ankle surgery History of colonoscopy with polypectomy History of knee replacement History of surgery on arm 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 No pertinent past surgical history Family History Mother , at age 89 Mini stroke Father , at age 54 Cancer Throat Social History Smoking and tobacco status: former smoker Alcohol intake: current Alcohol intake frequency: 3 or more drinks per day Caregiver/support person: Yes Lives independently: Yes Marital status: Single Current occupational status: retired History of recent travel: No Data Anesthesia 11/16/22 05:03 11/16/22 05:03 Short CBC 11/15/22 11/15/22 11/16/22 Range/Units 12:40 18:30 05:03 WBC 6.3 4.7 (4.0-10.0) 10^3/uL Hgb 8.0 L 7.3 L 6.5 L* (11.7-16.6) g/dL Hct 23.6 L 22.2 L 19.7 L* (42.0-52.0) % MCV 104.9 H 107.7 H (80-94) fl Plt Count 59 L 58 L (130-400) 10^3/cmm Neut % (Auto) 80.3 71.6 % Neut # (Auto) 5.03 3.39 (1.8-7.7) 10^3/uL BMP 11/15/22 11/16/22 12:40 05:03 Sodium 138 143 Potassium 3.3 L 3.1 L Chloride 90 L 100 Carbon Dioxide 23 27 BUN 34 H 24 H Creatinine 1.0 0.8 Glucose 94 106 Calcium 9.0 8.0 L Liver Function 11/15/22 11/15/22 11/16/22 Range/Units 12:40 18:30 05:03 Total Bilirubin 1.6 H 1.1 (0.15-1.2) mg/dL GGT 100 H (8-61) U/L AST 92 H 68 H (0-40) U/L ALT 47 H 36 (0-41) U/L Alkaline Phosphatase 113 88 (40-130) U/L Albumin 4.5 3.8 (3.5-5.2) g/dL Urine 11/15/22 Range/Units 19:13 Urine Color Yellow (Yellow) Urine Appearance Hazy A (CLEAR) Urine pH 5 (5-7) Ur Specific [place] 1.005 (1.005-1.030) Urine Protein Trace (Negative) Urine Glucose (UA) Norm (Normal) Urine Ketones 3+ H (Negative) Urine Nitrate Negative (Negative) Urine Bilirubin 1+ H (Negative) Ur Leukocyte Esterase Negative (Negative) Urine RBC Rare (0-2) /hpf Urine WBC Rare (0-5) /hpf Blood Bank 11/15/22 12:40 Blood Type A Positive Rho(D) Type Positive Antibody Screen Negative Coags 11/15/22 12:40 PT 14.00 INR 1.05 APTT 26.6 Cardiac Studies: No Data to Display Documented by User: Kayley Vicente 11/16/22 17:00 Pre-Anesthetic Assessment Airway Comments: Comments: poor with mulitple missing [patient states he has multiple loose teeth that have to be pulled, patient informed that procedure imparts risk of dental damage. He acknowledges risk] Medications/Allergies Home Medications Medication Instructions Recorded Confirmed Last Taken Type guaifenesin 400 mg tablet 400 mg PO Q4H PRN Congestion 03/04/21 11/15/22 04/14/22 History omeprazole 40 mg capsule,delayed 40 mg PO DAILY 03/04/21 11/15/22 11/15/22 History release allopurinol 300 mg tablet 300 mg PO DAILY 02/03/22 11/15/22 11/15/22 History folic acid 1 mg tablet 1 mg PO DAILY 02/03/22 11/15/22 11/15/22 History gabapentin 300 mg capsule 300 mg PO BEDTIME 02/03/22 11/15/22 11/14/22 History multivitamin with iron 1 tab PO DAILY 02/03/22 11/15/22 11/15/22 History thiamine HCl (vitamin B1) 100 mg 100 mg PO DAILY 02/03/22 11/15/22 11/15/22 History tablet cholecalciferol (vitamin D3) 50 50 mcg PO DAILY 05/14/22 11/15/22 11/15/22 History mcg (2,000 unit) capsule (Vitamin D3) fluticasone propionate 50 2 spray intranasal DAILY PRN Nasal 05/14/22 11/15/22 Unknown History mcg/actuation nasal Congestion spray,suspension venlafaxine 75 mg tablet 75 mg PO DAILY 05/14/22 11/15/22 11/15/22 History aspirin 325 mg tablet 81 mg PO DAILY 30 days #30 tabs 05/19/22 11/15/22 11/15/22 Rx carvedilol 12.5 mg tablet 6.25 mg PO BID 11/15/22 11/15/22 11/15/22 History celecoxib 100 mg capsule (Celebrex) 100 mg PO DAILY 11/15/22 11/15/22 11/15/22 History cetirizine 10 mg tablet (Zyrtec) 10 mg PO DAILY 11/15/22 11/15/22 11/15/22 History tamsulosin 0.4 mg capsule (Flomax) 0.8 mg PO BEDTIME 11/15/22 11/15/22 11/14/22 History Allergies Allergy/AdvReac Type Severity Reaction Status Date / Time No Known Allergies Allergy Verified 08/13/22 09:02 [facility] Anesthesia Medical History Diverticulosis large intestine w/o perforation or abscess w/bleeding [place] GERD (gastroesophageal reflux disease) History of nonmelanoma skin cancer HTN (hypertension) Surgical History History of ankle surgery History of colonoscopy with polypectomy History of knee replacement History of surgery on arm 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
[2022-11-16] MEDS: magnesium sulfate premix 2 GM/50 ML PIGGYBACK IV (15:02)
--- NOTE | 2022-11-16 15:34 | PM.PN ---
Subjective Subjective: No acute events overnight. Today morning patient seen sitting in bed. Denies any nausea, vomiting, headache. Complaining of mild belly pain. Has remained hemodynamically stable and afebrile. Vitals/I&O/Wt Last Vital Signs Temp 98.1 F 11/16/22 13:15 Pulse 88 11/16/22 13:23 Resp 16 11/16/22 13:23 BP 136/74 11/16/22 13:23 Pulse Ox 99 11/16/22 13:23 O2 Del Method 11/16/22 10:34 11/16/22 11/16/22 11/16/22 06:59 14:59 22:59 Intake Total 1011.2 / 1801.2 861.25 / 861.25 350 / 1211.25 Output Total 300 / 700 Balance 711.2 / 1101.2 861.25 / 861.25 350 / 1211.25 Weight last 48 hrs Weight 101.293 kg Weight 96.417 kg Weight 104.326 kg Physical Exam Narrative: General: No acute distress, AO x3, slightly occasionally confused HEENT: Pallor present, pupils bilaterally equal and reactive Chest: Normal vesicular breath sounds, no added sounds, equal good air entry bilaterally CVS: S1-S2 regular, no murmurs, no tachycardia, no gallops, no rubs Abdomen: Soft, nontender, no organomegaly, bowel sounds present Neuro: No focal deficits, no facial deformity, AO x3, power 5/5 in all limbs Data 11/16/22 05:03 11/16/22 05:03 A&P Assessment and plan (1) Upper gastrointestinal hemorrhage: History of daily alcohol abuse. Denies any similar complaints in the past though patient is a poor historian. Last colonoscopy in 2021 negative for active bleeding but showed polyps and diverticulosis. CT abdomen pelvis negative for esophageal varices. Surgery consulted in the ER. NPO. IV Protonix 40 mg twice daily. Monitor vitals. Telemetry. IV fluids at 75 cc/h. (2) Alcohol abuse: States he continues to a pint to half a bottle of vodka daily. Check alcohol level, urine drug screen. [place] protocol. Banana bag. (3) Acute on chronic anemia: Transfuse if hemoglobin drops below 7. Appreciate iron studies, B12 and folate levels. Management of GI bleed as above. (4) Thrombocytopenia: Stable. Most likely secondary to chronic alcohol abuse. Denies any difficulty in breathing or concern for viral prodrome. Will transfuse if platelet counts fall below 20 or patient starts having active bleeding again. (5) Hypokalemia: Replete. Recheck in the morning. Plan Full code. SCD for DVT prophylaxis Protonix will suffice as PUD prophylaxis Plan for today: Hemoglobin down to 6.5. Transfused 2 units. Repeat hemoglobin in the evening after 2 unit transfusions. Replete magnesium, phosphorus, potassium. Plan for EGD today. Continue with IV Protonix. NPO. CIWA protocol. Continue with IV hydration. Attestations Medical Necessity Statement*: Requires further hospitalization for management of anemia secondary to upper GI bleed in a patient with chronic alcohol abuse Coding Level of Care Code Acute Code for Chg Fwd Diagnoses Upper gastrointestinal hemorrhage K92.2 Alcohol abuse F10.10 Acute on chronic anemia D64.9 Thrombocytopenia D69.6 Hypokalemia E87.6
--- NOTE | 2022-11-16 17:25 | PC.NURSE ---
Anesthesia note reflects transfusion during procedure.
[2022-11-16] MEDS: sodium chloride 0.9% (100 ml) 100 ML 125 ML (17:55)
[2022-11-16] MEDS: lidocaine 1% 5 ML in potassium chloride premix 100 ML 26.25 ML IV (18:39)
[2022-11-16] MEDS: dextrose 5%-ns + KCl 20 20 MEQ/1,000 ML BAG 75 MEQ IV (18:49)
--- NOTE | 2022-11-16 19:16 | ANE.PACU2 ---
Inpatient post-anesthesia follow up: Airway intact: Yes Vital signs: Temperature 98.0 F Pulse Rate 82 Respiratory Rate 17 Blood Pressure 139/79 Pulse Oximetry 96 Oxygen Delivery Me thod Room Air Oxygen Flow Rate 6 Fraction of Inspir ed Oxygen Hydration adequate: Yes Nausea and vomiting: No Pain level: 1 Mental status: Baseline
[2022-11-16] MEDS: tamsulosin 0.4 mg Capsule 0.8 MG PO (21:24)
[2022-11-16] MEDS: sucralfate 1 gm Tablet PO (21:24)
[2022-11-16] MEDS: gabapentin 300 mg Capsule PO (21:26)
[2022-11-17] VITALS: BP 138/79; PULSE 100; RESP 14; TEMP 36.6; O2SAT 96
[2022-11-17 02:10] LABS: Hematocrit 26.5 % (42.0-52.0); Hemoglobin 8.5 g/dL (11.7-16.6)
[2022-11-17 04:00] VITALS: BP 120/72; PULSE 105; RESP 16; TEMP 36.4; O2SAT 95
[2022-11-17 05:41] LABS: Basophils % 0.2 %; Eosinophils # 0.1 10^3/uL (0.0-0.8); Eosinophils % 0.5 %; Hematocrit 26.7 % (42.0-52.0); Hemoglobin 8.7 g/dL (11.7-16.6); Lymphocytes # 0.6 10^3/uL (0.8-4.8); Lymphocytes % 5.9 %; Mean Corpuscular HGB Conc 32.6 g/dL (30.0-36.0); Mean Corpuscular Hemoglobin 33.6 pg (28.0-34.0); Mean Corpuscular Volume 103.1 fl (80-94); Mean Platelet Volume 11.9 fL (7.4-10.4); Monocytes # 0.6 10^3/uL (0.2-0.9); Monocytes % 5.9 %; Neutrophils # 8.96 10^3/uL (1.8-7.7); Neutrophils % 86.3 %; Nucleated Red Blood Cells % 0 %; Platelet Count 70 10^3/cmm (130-400); Red Blood Count 2.59 10^6/uL (4.1-5.3); Red Cell Distribution Width 19.8 % (12.1-15.1); White Blood Count 10.4 10^3/uL (4.0-10.0)
[2022-11-17 06:04] LABS: Alanine Aminotransferase 37 U/L (0-41); Albumin Level 3.6 g/dL (3.5-5.2); Alkaline Phosphatase 84 U/L (40-130); Anion Gap 16.5 (5-19); Aspartate Amino Transferase 65 U/L (0-40); Blood Urea Nitrogen 10 mg/dL (8-23); Carbon Dioxide 27 mmol/L (22-29); Chloride 103 mmol/L (98-107); Globulin 2.2 g/dL (1.3-4.6); Glucose 126 mg/dL (65-115); Osmolality Calculated 297 mOsm/kg (285-295); Potassium 3.5 mmol/L (3.5-5.1); Sodium 143 mmol/L (136-145); Total Protein 5.8 g/dL (6.6-8.7)
[2022-11-17] MEDS: sucralfate 1 gm Tablet PO (06:27)
[2022-11-17] MEDS: pantoprazole 40 mg SDV IVP (06:27)
[2022-11-17 08:00] VITALS: BP 132/77; PULSE 100; RESP 18; TEMP 37; O2SAT 94
[2022-11-17] MEDS: folic acid 1 mg Tablet PO (08:44)
[2022-11-17] MEDS: metoprolol tartrate 25 mg Tablet PO (08:44)
[2022-11-17] MEDS: venlafaxine 75 mg Tablet PO (08:44)
[2022-11-17] MEDS: thiamine 100 mg Tablet PO (08:44)
[2022-11-17] MEDS: allopurinol 300 mg Tablet PO (08:44)
[2022-11-17] MEDS: multivitamin therapeutic Tablet 1 TAB PO (08:45)
[2022-11-17] MEDS: dextrose 5%-ns + KCl 20 20 MEQ/1,000 ML BAG 75 MEQ IV (08:47)
--- NOTE | 2022-11-17 10:18 | P.DS_ITS ---
Discharge Providers Date of Admission: 11/15/22 15:50 Date of Discharge: November 17, 2022 Attending Provider at Admission: Desmond Matson MD Attending Provider at Discharge: Desmond Matson MD Consults: Surgery: Dr. Jacob Primary Care Provider: Paula Mo MD Diagnoses at Discharge Discharge Diagnosis (1) Upper gastrointestinal hemorrhage: Status: Acute (2) Alcohol abuse: Status: Acute (3) Acute on chronic anemia: Status: Acute (4) Thrombocytopenia: Status: Acute (5) Hypokalemia: Status: Acute Reason for Visit Reason for Visit: N/V Passing blood in stool and in vomit Hospital Course Hospital Course Trenton Sainz is a 72 year old male with past medical history of alcohol abuse, urinary retention presents to the ER today because of throwing up/coughing up blood today morning along with soft tarry black bowel movements for last 2 days.? Patient is not sure if he coughed up blood to rule out blood today morning.? Complains of dizziness.? States he drinks vodka daily.? Last consumption of alcohol today morning.? States he drank around half to a quarter of bottle today.? Denies any abdominal pain.? Denies any difficulty in breathing.? Not really sure if he has had an endoscopy before.? Had colonoscopy earlier in 2021 which was consistent with diverticulosis and polyps without any active bleeding On examination heart rate running more than 120s, saturating well on room air, is hemodynamically stable.? Patient is AOx3. In the ER patient was given 1 L of fluid bolus, Protonix [address] abdomen pelvis chest was done which ruled out esophageal varices. Patient is under the hospital further evaluation and management. Surgery was consulted. His hemoglobin dropped to 6.5 and he required 2 units of blood transfusion. He underwent endoscopy on 11/16 which is concerning for significant esophagitis gastritis and duodenitis without any active site of bleeding. His hemoglobin still remained stable after transfusion. He has been discharged hemodynamically stable condition with advice to be on Protonix twice daily for next 14 days and Carafate 3 times a day with each meal for next 2 weeks. He is to follow-up with his primary care provider within next 1 week for repeat CBC. He has been advised and counseled in detail to quit alcohol as much as possible. Physical Exam Narrative: General: AOx3, no acute distress HEENT: Pallor present, pupils bilaterally equal and reactive Chest: Normal vesicular breath sounds, no added sounds, equal good air entry bilaterally CVS: S1-S2 regular, no murmurs, no tachycardia, no gallops, no rubs Abdomen: Soft, nontender, no organomegaly, bowel sounds present Neuro: No focal deficits, no facial deformity, AO x3, power 5/5 in all limbs Discharge Data Studies Completed and Pending Completed Studies During Hospitalization Category Date Time Status CTA chest abdomen pelvis [CT ang ches abdpel 35092/ Cat Scan 11/15/22 13:53 Completed [id number]] Stat Pending at discharge Category Date Time Status Pathology: Surgical [PTH] Routine Pth 11/16/22 17:26 Received Radiology Impressions Chest/Abdomen/Pelvis CTA 11/15/22 13:53 IMPRESSION: 1. No evidence of pulmonary embolus. 2. No acute pulmonary infiltrates. No focal pneumonia or pleural fluid. 3. Diffuse fatty infiltration liver. 4. Markedly enlarged heterogeneous and nodular prostate suspicious for neoplasia. Evidence of bladder outlet obstruction. Recommend correlation for PSA. 5. Moderate esophageal hiatal hernia with partial intrathoracic stomach. 6. Sigmoid diverticulosis. No evidence of acute diverticulitis. Laboratory Results WBC 10.4 10^3/uL (4.0-10.0) H 11/17/22 05:03 RBC 2.59 10^6/uL (4.1-5.3) L 11/17/22 05:03 Hgb 8.7 g/dL (11.7-16.6) L 11/17/22 05:03 Hct 26.7 % (42.0-52.0) L 11/17/22 05:03 MCV 103.1 fl (80-94) H 11/17/22 05:03 MCH 33.6 pg (28.0-34.0) 11/17/22 05:03 MCHC 32.6 g/dL (30.0-36.0) 11/17/22 05:03 RDW 19.8 % (12.1-15.1) H 11/17/22 05:03 Plt Count 70 10^3/cmm (130-400) L 11/17/22 05:03 MPV 11.9 fL (7.4-10.4) H 11/17/22 05:03 Neut % (Auto) 86.3 % 02/08/23 05:03 Lymph % (Auto) 5.9 % 11/17/22 05:03 [place] % (Auto) 5.9 % 11/17/22 05:03 Eos % (Auto) 0.5 % 11/17/22 05:03 Baso % (Auto) 0.2 % 11/17/22 05:03 Neut # (Auto) 8.96 10^3/uL (1.8-7.7) H 11/17/22 05:03 Lymph # (Auto) 0.6 10^3/uL (0.8-4.8) L 11/17/22 05:03 [place] # (Auto) 0.6 10^3/uL (0.2-0.9) 11/17/22 05:03 Eos # (Auto) 0.1 10^3/uL (0.0-0.8) 11/17/22 05:03 Baso # (Auto) 0.0 10^3/uL (0.0-0.1) 11/17/22 05:03 Nucleated RBC % (auto) 0 % 11/17/22 05:03 Nucleated RBCs # 0.0 /100WBC 11/17/22 05:03 PT 14.00 SECONDS (12.1-14.9) 11/15/22 12:40 INR 1.05 (0.8-1.2) 11/15/22 12:40 APTT 26.6 SECONDS (23.9-36.7) 11/15/22 12:40 Sodium 143 mmol/L (136-145) 11/17/22 05:03 Potassium 3.5 mmol/L (3.5-5.1) 11/17/22 05:03 Chloride 103 mmol/L (98-107) 11/17/22 05:03 Carbon Dioxide 27 mmol/L (22-29) 11/17/22 05:03 Anion Gap 16.5 (5-19) 11/17/22 05:03 BUN 10 mg/dL (8-23) 11/17/22 05:03 Creatinine 0.7 mg/dL (0.7-1.2) 11/17/22 05:03 GFR Calculation Not Reportable 11/17/22 05:03 Glucose 126 mg/dL (65-115) H 11/17/22 05:03 Estimat Average Glucose 74 11/16/22 05:03 Hemoglobin A1c 4.2 % (4.0-6.0) 11/16/22 05:03 Calculated Osmolality 297 mOsm/kg (285-295) H 11/17/22 05:03 Calcium 8.0 mg/dL (8.5-10.5) L 11/17/22 05:03 Phosphorus 1.9 mg/dL (2.5-4.5) L 11/16/22 05:03 Magnesium 1.2 mg/dL (1.7-2.3) L 11/16/22 05:03 Iron 118 ug/dL (59-158) 11/15/22 18:30 TIBC 208 mcg/dl 11/15/22 18:30 % Saturation 56.7 % (20-50) H 11/15/22 18:30 Unsat Iron Binding 90 ug/dL (112-347) L 11/15/22 18:30 Total Bilirubin 1.0 mg/dL (0.15-1.2) 11/17/22 05:03 GGT 100 U/L (8-61) H 11/15/22 18:30 AST 65 U/L (0-40) H 11/17/22 05:03 ALT 37 U/L (0-41) 11/17/22 05:03 Alkaline Phosphatase 84 U/L (40-130) 11/17/22 05:03 Total Protein 5.8 g/dL (6.6-8.7) L 11/17/22 05:03 Albumin 3.6 g/dL (3.5-5.2) 11/17/22 05:03 Globulin 2.2 g/dL (1.3-4.6) 11/17/22 05:03 Triglycerides 55 mg/dL (0-150) 11/16/22 05:03 Cholesterol 114 mg/dL (0-200) 11/16/22 05:03 LDL Cholesterol, Calc 34 mg/dL (50-129) L 11/16/22 05:03 Total VLDL Cholesterol 11 mg/dL (0-30) 11/16/22 05:03 HDL Cholesterol 69 mg/dL (60-100) 11/16/22 05:03 Cholesterol/HDL Ratio 1.65 mg/dL (1.0-5.00) 11/16/22 05:03 Vitamin B12 652 pg/mL (232-1245) 11/15/22 18:30 Folate > 20.0 ng/mL (4.5-32.2) 11/15/22 18:30 TSH 3.65 uIU/mL (0.27-4.20) 11/15/22 18:30 Urine Color Yellow (Yellow) 11/15/22 19:13 Urine Appearance Hazy (CLEAR) A 11/15/22 19:13 Urine pH 5 (5-7) 11/15/22 19:13 Ur Specific [place] 1.005 (1.005-1.030) 11/15/22 19:13 Urine Protein Trace (Negative) 11/15/22 19:13 Urine Glucose (UA) Norm (Normal) 11/15/22 19:13 Urine Ketones 3+ (Negative) H 11/15/22 19:13 Urine Blood Neg (Negative) 11/15/22 19:13 Urine Nitrate Negative (Negative) 11/15/22 19:13 Urine Bilirubin 1+ (Negative) H 11/15/22 19:13 Urine Urobilinogen 1 mg/dL (Negative) H 11/15/22 19:13 Ur Leukocyte Esterase Negative (Negative) 11/15/22 19:13 Urine RBC Rare /hpf (0-2) 11/15/22 19:13 Urine WBC Rare /hpf (0-5) 11/15/22 19:13 Ur Squamous Epith Cells 0-4 /hpf (0-5) H 11/15/22 19:13 Amorphous Sediment Not Reportable 11/15/22 19:13 Urine Bacteria Trace /hpf (NONE) 11/15/22 19:13 Urine Mucus 2+ /hpf 11/15/22 19:13 Urine Sperm 3+ /hpf 11/15/22 19:13 Urine Opiates Screen Negative ng/mL (Negative) 11/15/22 19:13 Ur Barbiturates Screen Negative ng/mL (Negative) 11/15/22 19:13 Ur Phencyclidine Scrn Negative ng/mL (Negative) 11/15/22 19:13 Ur Amphetamines Screen Negative ng/mL (Negative) 11/15/22 19:13 U Benzodiazepines Scrn Negative ng/mL (Negative) 11/15/22 19:13 Urine Cocaine Screen Negative ng/mL (Negative) 11/15/22 19:13 U Marijuana (THC) Screen Negative ng/mL (Negative) 11/15/22 19:13 Ethyl Alcohol < 10 mg/dL (0-10) 11/15/22 18:30 Blood Type A Positive 11/15/22 12:40 Rho(D) Type Positive 11/15/22 12:40 Antibody Screen Negative 11/15/22 12:40 Crossmatch See Detail 11/15/22 12:40 Vitals Last Vital Signs Temp 98.6 F 11/17/22 08:00 Pulse 100 11/17/22 08:00 Resp 18 11/17/22 08:00 BP 132/77 11/17/22 08:00 Pulse Ox 94 11/17/22 08:00 O2 Del Method 11/17/22 08:00 O2 Flow Rate 6 11/16/22 21:32 Discharge Plan Discharge Patient Disposition: Home Condition: Stable Prescriptions: New sucralfate 1 gram Tablet 1 g PO AC&BEDTIME 14 Days Qty: 56 0RF pantoprazole [Protonix] 40 mg tablet,delayed release (DR/EC) 40 mg PO BID 14 Days Qty: 28 0RF metoprolol tartrate 25 mg Tablet 25 mg PO BID@0900,2100 7 Days Qty: 14 0RF Continued guaifenesin 400 mg tablet 400 mg PO Q4H PRN (Reason: Congestion) omeprazole 40 mg capsule,delayed release(DR/EC) 40 mg PO DAILY allopurinol 300 mg tablet 300 mg PO DAILY folic acid 1 mg tablet 1 mg PO DAILY gabapentin 300 mg capsule 300 mg PO BEDTIME multivitamin with iron Tablet 1 tab PO DAILY thiamine HCl (vitamin B1) 100 mg tablet 100 mg PO DAILY venlafaxine 75 mg Tablet 75 mg PO DAILY fluticasone propionate 50 mcg/actuation [place],Suspension 2 spray INTRANASAL DAILY PRN (Reason: Nasal Congestion) Rx Instructions: administer into each nostril cholecalciferol (vitamin D3) [Vitamin D3] 50 mcg (2,000 unit) Capsule 50 mcg PO DAILY Zyrtec 10 mg Tablet 10 mg PO DAILY Flomax 0.4 mg capsule 0.8 mg PO BEDTIME Held aspirin 325 mg tablet 81 mg PO DAILY 30 Days Qty: 30 0RF Hold Instructions: Resume on 12/01/22. carvedilol 12.5 mg Tablet 6.25 mg PO BID Hold Instructions: Resume on 11/24/22. Rx Instructions: must administer with a meal/food Discontinued Celebrex 100 mg Capsule 100 mg PO DAILY Discharge Orders: Discharge Order (Routine); Ordered 11/17/22 Ordered By: Desmond Matson Referrals: Paula Mo MD [Primary Care Provider] - Patient Instructions: GI Discharge Instructions, Opioid Safety Activity Restrictions/Additional Instructions: Please do not take aspirin for the next 2 weeks. Carvedilol has been withheld for next 1 week. Stop carvedilol you will take metoprolol 25 mg twice daily. Do not take Celebrex for now. You will be on Protonix morning and evening for the next 2 weeks. You will also take Carafate with each meal for next 2 weeks. Please follow-up with a primary care provider within next 1 week for repeat CBC. Please avoid consuming alcohol as much as possible. Discharge Attestations Time Spent in Discharge Care*: greater than 30 min Specific Discharge Activities: educating patient, discussing with pcp/other providers, discussing with telephonic case manager/social workers/dc planners, documenting/other paperwork and evaluating patient/reviewing data Status at Discharge: Cognitive status at discharge: cognitively intact , Behavioral status at discharge: cooperative , Functional status at discharge: independent ambulation , Overall status at discharge: patient is back to baseline Quality Metrics Clinical Quality Measures [ No reported AMI, CVA or VTE this stay] Coding Level of Care Code 57460 Total time (in minutes) for Discharge: 50 Diagnoses Upper gastrointestinal hemorrhage K92.2 Alcohol abuse F10.10 Acute on chronic anemia D64.9 Thrombocytopenia D69.6 Hypokalemia E87.6
[2022-11-17 12:12] VITALS: BP 132/77; PULSE 100; RESP 18; TEMP 37; O2SAT 94
== END 2022-11-17 12:12 | disposition home or self-care (01) | DRG 368 ==
LOC: ER 16:39 → MEDSURG 17:09
PROVIDERS: Surgery; Admitting Provider Student in an Organized Health Care Education/Training Program; Emergency Provider Emergency Medicine; PCP Family Medicine; Visit Provider Student in an Organized Health Care Education/Training Program
PROC: 0DJ08ZZ Inspection of Upper Intestinal Tract, Via Natural or Artificial Opening Endoscopic (ICD-10-PCS; CPT 43235; principal; 2022-11-16 12:15)
DX: K20.91 Esophagitis, unspecified with bleeding (principal); K29.21 Alcoholic gastritis with bleeding; K29.81 Duodenitis with bleeding; F10.10 Alcohol abuse, uncomplicated; D69.59 Other secondary thrombocytopenia; E87.6 Hypokalemia; R33.9 Retention of urine, unspecified; K57.30 Diverticulosis of large intestine without perforation or abscess without bleeding; K21.9 Gastro-esophageal reflux disease without esophagitis; Z85.828 Personal history of other malignant neoplasm of skin; I10 Essential (primary) hypertension; Z87.891 Personal history of nicotine dependence; D64.9 Anemia, unspecified
CPT/HCPCS: 36415; 36430; 43239; 71275; 74174; 80053; 80061; 80306; 80307; 81001; 82607; 82746; 82977; 83036; 83540; 83550; 83735; 84100; 84443; 85014; 85018; 85025; 85610; 85730; 86850; 86900; 86920; 88305; 88342; 96365; 96372; 96375; 99285; C9113; G0378; J0696; J2405; J2704; J3411; J3475; J3480; J3490; J7030; J7040; P9016; Q9967

== ENCOUNTER 2023-04-11 10:48 | Inpatient (IN) | payer OTHER, SELFPAY ==
[2023-04-11] VITALS (11 sets, daily range): BP systolic 103–132; BP diastolic 64–70; PULSE 119–138; RESP 18–26; TEMP 36.4–36.7; O2SAT 95–100; BMI 34.4; BMI 31.6
--- NOTE | 2023-04-11 11:11 | XRR_ITS ---
PROCEDURE INFORMATION: Exam: XR Chest Exam date and time: 04/11/2023 11:31 AM Age: 73 years old Clinical indication: Other: Weakness; Additional info: [place] TECHNIQUE: Imaging protocol: Radiologic exam of the chest. Views: 1 view. COMPARISON: CR XR chest 1V portable [id number] 05/14/2022 12:18 PM FINDINGS: Lungs: Unremarkable. No consolidation. Pleural spaces: Unremarkable. No pleural effusion. No pneumothorax. Heart/Mediastinum: Unremarkable. No cardiomegaly. Bones/joints: Unremarkable. XR/XR chest 1V portable [id number] IMPRESSION: No acute findings.
--- NOTE | 2023-04-11 11:11 | ECG_ITS ---
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 Measurements Intervals [place] Rate: 120 P: 89 WA: 172 QRS: 74 QRSD: 128 T: 42 QT: 327 QTc: 462 Interpretive Statements SINUS TACHYCARDIA RIGHT BUNDLE BRANCH BLOCK [120+ ms QRS DURATION, UPRIGHT V1, 40+ ms S IN I/aVL/V4/V5/V6] Compared to ECG 05/15/2022 23:20:32 No significant changes Electronically Signed On 04-11-2023 18:40:04 CDT by Miranda Brady M.D. [id number]
--- NOTE | 2023-04-11 11:29 | W.ED.WEAKNES ---
HPI - Weakness General: Chief complaint: Weakness Stated complaint: Not able to walk, ankles swellings Time Seen by Provider: 04/11/23 10:55 Source: patient and EMS Mode of arrival: EMS Limitations: altered mental status History of Present Illness: 73-year-old male has had a history of chronic alcoholism for years. He states that he drinks 1/5 of whiskey almost daily. He is here with his son states that over the last 2 weeks he has been having increasing confusion he is not able to walk states he is not able to take care for himself. Patient states that he is not able to walk he has been laying in bed denies any fever or pain anywhere Associated symptoms: Denies chest pain, chills, fever(s), headache(s), nausea or vomiting Review of Systems Const: Reports: fatigue and malaise; Denies: fever(s), chills, body aches or change in appetite Eyes: Denies: eye discomfort ENMT: Denies: throat pain or dental pain Card: Denies: chest pain Resp: Denies: dyspnea GI: Denies: abdominal pain, nausea, vomiting or diarrhea Musc: Denies: neck pain or back pain Skin/Breast: Denies: rash Neuro: Denies: headache(s) PFSH ED PFSH: Medical History Diverticulosis large intestine w/o perforation or abscess w/bleeding [place] GERD (gastroesophageal reflux disease) GERD (gastroesophageal reflux disease) History of nonmelanoma skin cancer HTN (hypertension) Surgical History History of ankle surgery History of colonoscopy with polypectomy History of knee replacement History of surgery on arm 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 No pertinent past surgical history Family History Mother , at age 89 Mini stroke Father , at age 54 Cancer Throat Social History Smoking and tobacco status: former smoker Alcohol intake: current Alcohol intake frequency: 3 or more drinks per day Caregiver/support person: Yes Lives independently: Yes Marital status: Single Current occupational status: retired Physical Exam Const: COMMON NORMALS: patient oriented x3 GENERAL APPEARANCE: disheveled and lethargic ORIENTATION/CONSCIOUSNESS: Yes lethargic HENMT: COMMON NORMALS: normocephalic and atraumatic HEAD & SCALP: normocephalic and atraumatic Eye: COMMON NORMALS: Equal, round and reactive pupils present and EOMs intact bilaterally PUPIL: Yes Equal, round and reactive pupils present Neck/C-Spine: COMMON NORMALS: full ROM and supple Chest: COMMONS NORMALS: normal inspection of the chest and normal palpation of entire chest wall Resp: COMMON NORMALS: normal respiratory effort, No retractions, No use of accessory muscles and clear to auscultation bilaterally AUSCULTATION: clear to auscultation bilaterally Cardio: COMMON NORMALS: regular rhythm and No murmurs present (Cardio) RATE: tachycardic RHYTHM: regular rhythm GI: COMMON NORMALS: Normal to inspection, nondistended, normoactive bowel sounds present, Soft to palpation, non-tender and no masses PALPATION: Yes Soft to palpation Extremity: COMMON NORMALS: normal to inspection and full ROM Neuro: COMMON NORMALS: patient oriented x3, moves all extremities and no focal motor deficits SENSORIUM/ORIENTATION: Yes lethargic Psych: COMMON NORMALS: mental status grossly normal, Normal thought process present and cooperative THOUGHT PROCESS: Normal thought process present Skin: COMMON NORMALS: no rashes or lesions noted and no wounds GENERAL SKIN EXAM: no rashes or lesions noted Course Vital Signs: Vital signs: Vital Signs Temperature 97.6 F 04/11/23 11:24 Pulse Rate 128 H 04/11/23 11:24 Respiratory Rate 20 H 04/11/23 11:24 Blood Pressure 129/66 04/11/23 11:24 Pulse Oximetry 100 04/11/23 11:24 Oxygen Delivery Me thod Room Air 04/11/23 11:24 MDM - Weakness Medical Decision Making Patient presents here with generalized weakness chronic alcoholism he is hypokalemic here slight acute kidney injury his bilirubin is elevated as well possibly has cirrhosis from his chronic drinking he is very weak unable to ambulate will admit at this time likely needs senior care placement versus home health. Lab Data 04/11/23 11:39 04/11/23 11:39 Radiology Impressions Chest X-Ray 04/11/23 11:11 IMPRESSION: No acute findings. Laboratory Results WBC 8.2 10^3/uL (4.0-10.0) 04/11/23 11:39 RBC 2.83 10^6/uL (4.1-5.3) L 04/11/23 11:39 Hgb 10.4 g/dL (11.7-16.6) L 04/11/23 11:39 Hct 30.4 % (42.0-52.0) L 04/11/23 11:39 MCV 107.4 fl (80-94) H 04/11/23 11:39 MCH 36.7 pg (28.0-34.0) H 04/11/23 11:39 MCHC 34.2 g/dL (30.0-36.0) 04/11/23 11:39 RDW 14.2 % (12.1-15.1) 04/11/23 11:39 Plt Count 213 10^3/cmm (130-400) 04/11/23 11:39 MPV 10.8 fL (7.4-10.4) H 04/11/23 11:39 Neut % (Auto) 72.3 % 04/11/23 11:39 Lymph % (Auto) 10.7 % 04/11/23 11:39 [place] % (Auto) 14.3 % 04/11/23 11:39 Eos % (Auto) 0.1 % 04/11/23 11:39 Baso % (Auto) 0.5 % 04/11/23 11:39 Neut # (Auto) 5.90 10^3/uL (1.8-7.7) 04/11/23 11:39 Lymph # (Auto) 0.9 10^3/uL (0.8-4.8) 04/11/23 11:39 [place] # (Auto) 1.2 10^3/uL (0.2-0.9) H 04/11/23 11:39 Eos # (Auto) 0.0 10^3/uL (0.0-0.8) 04/11/23 11:39 Baso # (Auto) 0.0 10^3/uL (0.0-0.1) 04/11/23 11:39 Nucleated RBC % (auto) 0.7 % 04/11/23 11:39 Nucleated RBCs # 0.1 /100WBC 04/11/23 11:39 PT 15.20 SECONDS (12.1-14.9) H 04/11/23 11:39 INR 1.16 (0.8-1.2) 04/11/23 11:39 Sodium 125 mmol/L (136-145) L 04/11/23 11:39 Potassium 4.5 mmol/L (3.5-5.1) 04/11/23 11:39 Chloride 81 mmol/L (98-107) L 04/11/23 11:39 Carbon Dioxide 20 mmol/L (22-29) L 04/11/23 11:39 Anion Gap 28.5 (5-19) H 04/11/23 11:39 BUN 8 mg/dL (8-23) 04/11/23 11:39 Creatinine 2.3 mg/dL (0.7-1.2) H 04/11/23 11:39 GFR Calculation Not Reportable 04/11/23 11:39 Glucose 125 mg/dL (65-115) H 04/11/23 11:39 Calculated Osmolality 260 mOsm/kg (285-295) L 04/11/23 11:39 Calcium 10.0 mg/dL (8.5-10.5) 04/11/23 11:39 Total Bilirubin 4.1 mg/dL (0.15-1.2) H 04/11/23 11:39 AST 210 U/L (0-40) H 04/11/23 11:39 ALT 148 U/L (0-41) H 04/11/23 11:39 Alkaline Phosphatase 163 U/L (40-130) H 04/11/23 11:39 Ammonia 35 umol/L (16-60) 04/11/23 11:39 Troponin T Baseline 31 ng/L (0-15) H 04/11/23 11:39 Total Protein 6.6 g/dL (6.6-8.7) 04/11/23 11:39 Albumin 3.3 g/dL (3.5-5.2) L 04/11/23 11:39 Globulin 3.3 g/dL (1.3-4.6) 04/11/23 11:39 Ethyl Alcohol < 10 mg/dL (0-10) 04/11/23 11:39 Discharge Plan Discharge Patient Disposition: Admitted As Inpatient Clinical Impression: ETOH abuse, Generalized weakness, Acute hyponatremia Condition: Stable Coding Level of Care Code ED Band Manager for Moe Anand
[2023-04-11 11:46] LABS: Basophils % 0.5 %; Eosinophils % 0.1 %; Hematocrit 30.4 % (42.0-52.0); Hemoglobin 10.4 g/dL (11.7-16.6); Lymphocytes # 0.9 10^3/uL (0.8-4.8); Lymphocytes % 10.7 %; Mean Corpuscular HGB Conc 34.2 g/dL (30.0-36.0); Mean Corpuscular Hemoglobin 36.7 pg (28.0-34.0); Mean Corpuscular Volume 107.4 fl (80-94); Mean Platelet Volume 10.8 fL (7.4-10.4); Monocytes # 1.2 10^3/uL (0.2-0.9); Monocytes % 14.3 %; Neutrophils % 72.3 %; Nucleated Red Blood Cells # 0.1 /100WBC; Nucleated Red Blood Cells % 0.7 %; Platelet Count 213 10^3/cmm (130-400); Red Blood Count 2.83 10^6/uL (4.1-5.3); Red Cell Distribution Width 14.2 % (12.1-15.1); White Blood Count 8.2 10^3/uL (4.0-10.0)
[2023-04-11 11:56] LABS: INR 1.16 (0.8-1.2)
--- NOTE | 2023-04-11 12:01 | CT_ITS ---
WS: [id number] CT HEAD TECHNIQUE: Noncontrast CT of the head obtained from the skullbase to the vertex. CLINICAL INFORMATION: weakness COMPARISON: May 03, 2020 DLP: 991.[address] scans at [facility] use at least one of these dose optimization techniques: automated e xposure control; mA and/or kV adjustment per patient size (includes targeted exams where dose is matc hed to clinical indication); or iterative reconstruction. FINDINGS: No evidence of intracranial hemorrhage or mass effect. Ventricular system and basal cisterns are ndiaye nt. Moderate to advanced small vessel changes with moderate parenchymal volume loss. Intracranial vas cular calcification. No extra-axial fluid collections. No evidence of mass or mass effect. Paranasal sinuses and mastoid air cells are well aerated. .Normal visualized soft tissues. CT/CT head wo con* [id number] IMPRESSION: 1. No evidence of intracranial hemorrhage or mass effect. 2. Moderate to advanced small vessel changes with moderate parenchymal volume loss. This is progressed compared to 2019. 3. Intracranial vascular calcification. 4. No acute intracranial findings.
[2023-04-11 12:03] LABS: Alanine Aminotransferase 148 U/L (0-41); Albumin Level 3.3 g/dL (3.5-5.2); Alkaline Phosphatase 163 U/L (40-130); Ammonia 35 umol/L (16-60); Aspartate Amino Transferase 210 U/L (0-40); Blood Urea Nitrogen 8 mg/dL (8-23); Carbon Dioxide 20 mmol/L (22-29); Chloride 81 mmol/L (98-107); Globulin 3.3 g/dL (1.3-4.6); Glucose 125 mg/dL (65-115); Osmolality Calculated 260 mOsm/kg (285-295); Sodium 125 mmol/L (136-145); Total Bilirubin 4.1 mg/dL (0.15-1.2); Total Protein 6.6 g/dL (6.6-8.7)
[2023-04-11 12:04] LABS: Troponin(5th) Baseline 31 ng/L (0-15)
[2023-04-11 12:24] LABS: Alcohol Level < 10 mg/dL (0-10); Anion Gap 28.5 (5-19); Potassium 4.5 mmol/L (3.5-5.1)
--- NOTE | 2023-04-11 12:29 | P.HP_ITS ---
Providers/Chief Complaint Primary Care Provider: Paula Mo MD Chief Complaint: Not able to walk, ankles swellings History of Present Illness Trenton Sainz is a 73 year old male with history of alcohol dependence, patient was sent to [place] by IV physician in the past where he recovered from his alcohol dependency but relapsed and started drinking again presenting today for not been able to care for himself, patient does not have any family, he never got , there is a friend who is medical DPOA Mr. Villegas he brought him here because he is just drinking alcohol 1 pint of whiskey every day not eating well not been able to take care of himself not been able to walk. In the ER he has been diagnosed with alcohol-related hepatitis he is jaundiced, patient is endorsing history of alcohol withdrawal, DTs patient is stating that last time he was intubated there were some esophageal injury and bleeding for which she was transferred to [place] His last alcoholic drink was probably on 04/10 Alcohol-related hyponatremia, GHADA, high bilirubin, ammonia level is normal, patient is able to give me history Pleasant and cooperative during my evaluation Review of Systems Const: Denies: fever(s) Eyes: Denies: change in vision ENMT: Denies: throat pain Card: Denies: chest pain Resp: Denies: dyspnea GI: Reports: nausea; Denies: abdominal pain : Denies: flank pain Musc: Denies: neck pain Skin/Breast: Denies: rash Neuro: Denies: headache(s) Psych: Reports: anxiety Endo: Denies: polyuria Barrera/Lymph: Denies: easy bruising Medications/Allergies Home Medications Medication Instructions Recorded Confirmed Last Taken Type omeprazole 40 mg capsule,delayed 40 mg PO DAILY 03/04/21 04/11/23 11/15/22 History release allopurinol 300 mg tablet 300 mg PO DAILY 02/03/22 04/11/23 11/15/22 History folic acid 1 mg tablet 1 mg PO DAILY 02/03/22 04/11/23 11/15/22 History gabapentin 300 mg capsule 300 mg PO BEDTIME 02/03/22 04/11/23 11/14/22 History multivitamin with iron 1 tab PO DAILY 02/03/22 04/11/23 11/15/22 History thiamine HCl (vitamin B1) 100 mg 100 mg PO DAILY 02/03/22 04/11/23 11/15/22 H istory tablet cholecalciferol (vitamin D3) 50 50 mcg PO DAILY 05/14/22 04/11/23 11/15/22 His tory mcg (2,000 unit) capsule (Vitamin D3) fluticasone propionate 50 2 spray intranasal DAILY PRN Nasal 05/14/22 04/11/23 Unknown History mcg/actuation nasal Congestion spray,suspension venlafaxine 75 mg tablet 75 mg PO DAILY 05/14/22 04/11/23 11/15/22 History cetirizine 10 mg tablet (Zyrtec) 10 mg PO DAILY 11/15/22 04/11/23 11/15/22 History tamsulosin 0.4 mg capsule (Flomax) 0.8 mg PO BEDTIME 11/15/22 04/11/23 11/14/22 History metoprolol tartrate 25 mg tablet 25 mg PO BID 04/11/23 04/11/23 Unknown History Allergies Allergy/AdvReac Type Severity Reaction Status Date / Time Penicillins Allergy Unknown Verified 04/11/23 12:15 PFSH Acute PFSH: Medical History Diverticulosis large intestine w/o perforation or abscess w/[place] GERD (gastroesophageal reflux disease) GERD (gastroesophageal reflux disease) History of nonmelanoma skin cancer HTN (hypertension) Surgical History History of ankle surgery History of colonoscopy with polypectomy History of knee replacement History of surgery on arm 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 jainism No pertinent past surgical history Family History Mother , at age 89 Mini stroke Father , at age 54 Cancer Throat Social History Smoking and tobacco status: former smoker Alcohol intake: current Alcohol intake frequency: 3 or more drinks per day Caregiver/support person: Yes Lives independently: Yes Marital status: Single Current occupational status: retired Vitals/I&O/Wt Last Vital Signs Temp 97.6 F 04/11/23 11:24 Pulse 128 H 04/11/23 11:24 Resp 20 H 04/11/23 11:24 BP 129/66 04/11/23 11:24 Pulse Ox 100 04/11/23 11:24 O2 Del Method Room Air 04/11/23 11:24 Weight last 48 hrs Weight 108.862 kg Physical Exam Narrative: Patient is awake and alert No asterixis Able to give me history Medical DPOA at the bedside GCS 15 S1, S2 Nonfocal neuro exam Anasarca Scleral icterus positive Distended veins on abdominal wall noted Lower extremity edema Currently on room air Data 04/11/23 11:39 04/11/23 11:39 A&P Assessment and plan (1) Generalized weakness: (2) Acute hyponatremia: (3) Hypertrophy of prostate: (4) Alcohol abuse: (5) ETOH abuse: (6) Urinary retention: (7) Alcoholic hepatitis: (8) GHADA (acute kidney injury): Plan Generalized weakness Related to alcohol abuse Hyponatremia hypervolemic in nature History of DTs in the past GHADA My plan is to insert Treadwell catheter that would improve his urinary tension and hopefully his creatinine will improve Start phenobarbital around 100 mg p.o. 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 Villegas who has medical DPOA Patient is full code but does not want to stay on a ventilator for prolonged time. Regular diet, Attestations Medical Necessity Statement*: More than 2 midnights anticipated for management of alcohol-related hepatitis Diagnoses Generalized weakness R53.1 Acute hyponatremia E87.1 Hypertrophy of prostate N40.0 Alcohol abuse F10.10 Urinary retention R33.9 Alcoholic hepatitis K70.10 GHADA (acute kidney injury) N17.9
--- NOTE | 2023-04-11 13:11 | ECG_ITS ---
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 Measurements Intervals [place] Rate: 131 P: 0 NC: 0 QRS: 65 QRSD: 128 T: 66 QT: 323 QTc: 477 Interpretive Statements ATRIAL FLUTTER/TACHYCARDIA WITH RAPID VENTRICULAR RESPONSE RIGHT BUNDLE BRANCH BLOCK [120+ ms QRS DURATION, UPRIGHT V1, 40+ ms S IN I/aVL/V4/V5/V6] Compared to ECG 04/11/2023 11:54:13 Sinus tachycardia no longer present Electronically Signed On 04-11-2023 18:55:05 CDT by Miranda Brady M.D. [email or web address]/store/[id number]
[2023-04-11 13:25] LABS: Hepatitis A Antibody IgM Non-Reactive (Nonreactive); Hepatitis B Core AB, Total Non-Reactive (Nonreactive); Hepatitis B Surface Antigen Non-Reactive (Nonreactive); Hepatitis C Virus Antibody Non-Reactive (Nonreactive)
[2023-04-11 13:28] LABS: Hepatitis B Surface AB < 3.5 (11.5-1000)
[2023-04-11 13:58] LABS: Add Urine Microscopic? YES; Bilirubin Urine 2+ (Negative); Blood Urine Neg (Negative); Glucose Urine UA Norm (Normal); Ketones Urine 1+ (Negative); Leukocyte Esterase Urine Negative (Negative); Nitrate Urine Negative (Negative); Protein Urine Trace (Negative); Urine Appearance SL Hazy (CLEAR); Urine Color Amber (Yellow); Urobilinogen Urine 4 mg/dL (Negative); pH Urine 5 (5-7)
[2023-04-11 13:59] LABS: Add Urine Culture? No; Bacteria Urine 2+ /hpf; Mucus Urine 1+ /hpf; Squamous Epithelial Cell Urine RARE /hpf (0-5)
[2023-04-11 14:07] LABS: Troponin 5 2HR 27.73 ng/L (0-15)
[2023-04-11 14:08] LABS: Estmated Average Glucose 80; Hemoglobin A1C 4.4 % (4.0-6.0)
[2023-04-11 14:12] LABS: Troponin 5 2HR Delta -3.27 ABS# (0-10)
[2023-04-11 14:13] LABS: Thyroid Stimulating Hormone 9.25 uIU/mL (0.27-4.20)
[2023-04-11] MEDS: heparin 5,000 unit/mL INJ 1 mL 5000 UNIT SUBCUT (14:48)
[2023-04-11] MEDS: PHENobarbital 32.4 mg Tablet 97.2 MG PO (16:49)
[2023-04-11] MEDS: metoprolol tartrate 1 mg/1 mL SDV 5 mL 5 MG IVP (16:50)
[2023-04-11] MEDS: metoprolol tartrate 25 mg Tablet PO (18:52)
--- NOTE | 2023-04-11 18:55 | PC.NURSE ---
Requested of Dr. Mcgrath that patient have a sitter has he has pulled out is IV already and has got out of bed twice already with a near fall once. Patient does have his fall risk band and slip socks on. Patient is not always able to be redirected. Patient will not leave his telemetry on as he keeps pulling things off. Dr. Mcgrath notified.
[2023-04-11 19:01] LABS: Troponin 5 6HR 29.34 ng/L (0-15)
[2023-04-11 19:25] LABS: Troponin 5 6HR Delta -1.66 ng/L (0-12)
[2023-04-11] MEDS: ipratropium-albuterol 3 mL Neb INHALATION (19:39)
--- NOTE | 2023-04-11 20:49 | PC.NURSE ---
This nurse called Dr. Salazar because patient was agitated and confused and repeatedly trying to leave the bed. Dr. Salazar gave orders to transfer to ICU. This nurse and BREADING MACHINE TENDER took pt to ICU 1 at 2036.
[2023-04-11] MEDS: tamsulosin 0.4 mg Capsule 0.8 MG PO (21:50)
[2023-04-11] MEDS: lactulose oral liq 20 gm/30 mL UDC PO (21:50)
[2023-04-11] MEDS: sodium chloride 0.9% 500 ML 999 ML IV (22:14)
[2023-04-11] MEDS: dexmedetomidine 400 MCG in sodium chloride 0.9% (100 ml) 100 ML IV (23:41)
[2023-04-11] MEDS: sodium chloride 0.9% 1,000 ML 125 ML IV (23:44)
[2023-04-12] VITALS (29 sets, daily range): BP systolic 73–148; BP diastolic 41–99; PULSE 83–121; RESP 15–30; TEMP 36.2; O2SAT 94–98
[2023-04-12] MEDS: heparin 5,000 unit/mL INJ 1 mL 5000 UNIT SUBCUT ×2 (01:46→14:05)
[2023-04-12 04:03] LABS: Basophils % 0.5 %; Eosinophils # 0.1 10^3/uL (0.0-0.8); Eosinophils % 1.2 %; Hematocrit 25.2 % (42.0-52.0); Hemoglobin 8.6 g/dL (11.7-16.6); Lymphocytes # 1.3 10^3/uL (0.8-4.8); Mean Corpuscular HGB Conc 34.1 g/dL (30.0-36.0); Mean Corpuscular Hemoglobin 36.3 pg (28.0-34.0); Mean Corpuscular Volume 106.3 fl (80-94); Mean Platelet Volume 10.9 fL (7.4-10.4); Monocytes # 0.9 10^3/uL (0.2-0.9); Monocytes % 16.2 %; Nucleated Red Blood Cells # 0.1 /100WBC; Nucleated Red Blood Cells % 1.1 %; Platelet Count 175 10^3/cmm (130-400); Red Blood Count 2.37 10^6/uL (4.1-5.3); Red Cell Distribution Width 14.5 % (12.1-15.1); White Blood Count 5.7 10^3/uL (4.0-10.0)
[2023-04-12] MEDS: sodium chloride 0.9% 500 ML 999 ML IV (04:18)
[2023-04-12 04:24] LABS: Anion Gap 13.7 (5-19); Blood Urea Nitrogen 9 mg/dL (8-23); Calcium 9.1 mg/dL (8.5-10.5); Carbon Dioxide 28 mmol/L (22-29); Chloride 90 mmol/L (98-107); Glucose 88 mg/dL (65-115); Osmolality Calculated 264 mOsm/kg (285-295); Potassium 3.7 mmol/L (3.5-5.1); Sodium 128 mmol/L (136-145)
[2023-04-12 04:28] LABS: Magnesium 0.8 mg/dL (1.7-2.3)
[2023-04-12] MEDS: magnesium sulfate premix 4 GM/100 ML PREMIX IV (05:36)
[2023-04-12] MEDS: pantoprazole DR 40 mg Tablet PO (08:45)
[2023-04-12] MEDS: folic acid 1 mg Tablet PO (08:45)
[2023-04-12] MEDS: metoprolol tartrate 25 mg Tablet PO (08:45)
[2023-04-12] MEDS: thiamine 100 mg Tablet PO (08:45)
[2023-04-12] MEDS: potassium chloride ER 10 mEq Tablet PO (08:45)
[2023-04-12] MEDS: lactulose oral liq 20 gm/30 mL UDC PO ×2 (08:45→20:38)
[2023-04-12] MEDS: vancomycin 1,500 MG/300 ML PIGGYBACK 200 MG IV (08:46)
[2023-04-12] MEDS: sodium chloride 0.9% 1,000 ML 125 ML IV (08:50)
[2023-04-12] MEDS: allopurinol 300 mg Tablet PO (09:30)
[2023-04-12] MEDS: potassium chloride ER 20 mEq Tablet 40 MEQ PO (09:31)
[2023-04-12] MEDS: magnesium oxide 400 mg tablet PO (09:31)
--- NOTE | 2023-04-12 09:49 | USCV_ITS ---
Trenton Sainz Age: 73 Gender: M : 1950 Exam Date: 04/12/2023 10:05 Ordering Phys: Rigoberto Mcgrath MD Technologist: EVELINA Exam Location: [facility] [place] Indication: DECREASED CARDIAC OUTPT BP: 95 / 65 HR: 93 Rhythm: Sinus Technical Quality: Suboptimal MEASUREMENTS (Male / Female) Normal Values 2D ECHO LV Ejection Fraction MOD 2C 62.5 % LV Ejection Fraction 2C AL 62.8 % LA Width 2.9 cm LA Height 4.0 cm RA Width 3.0 cm RA Height 3.6 cm DOPPLER AV Peak Velocity 120.0 cm/s LVOT Peak Velocity 84.0 cm/s MV Peak Velocity 114.0 cm/s MV Area PHT 3.7 cm squared Mitral E to A Ratio 0.9 MV E' Velocity 50.5 cm/s Mitral E to MV E' Ratio 21.3 Mitral E to LV E' Lateral Ratio 21.3 Mitral E to LV E' Septal Ratio 21.8 TR Peak Velocity 137.4 cm/s TR Peak Gradient 7.6 mmHg TR Mean Velocity 98.9 cm/s TR Mean Gradient 4.4 mmHg TR Velocity Time Integral 30.1 cm TV Peak E Velocity 53.0 cm/s Right Atrial Pressure 8.0 mmHg Pulmonary Artery Systolic Pressu 15.6 mmHg FINDINGS Left Ventricle Normal left ventricular cavity size and systolic function. Left ventricular ejection fraction is estimated at 55-60 %. No diagnostic regional wall motion abnormalities. Abnormal septal motion. Right Ventricle Normal right ventricular size and systolic function. Right Atrium Normal right atrial size. Left Atrium Left atrium not well visualized. Mitral Valve Moderate mitral annular calcification. No mitral valve stenosis. No mitral valve regurgitation. Aortic Valve Aortic valve not well visualized. No aortic valve stenosis. No aortic valve regurgitation. Tricuspid Valve Structurally normal tricuspid valve. Trace tricuspid valve regurgitation. Pulmonic Valve Pulmonic valve not well visualized. Pericardium No pericardial effusion. Aorta Aorta not well visualized. Aorta not well visualized. IVC Inferior vena cava not visualized. CONCLUSIONS 1. Normal left ventricular cavity size and systolic function. Left ventricular ejection fraction is estimated at 55-60 %. No diagnostic regional wall motion abnormalities. Abnormal septal motion. 2. There may not have been any significant change when comapred to report dated 08/02/2018. Mari Robles MD (Electronically Signed) Final Date: 12 April 2023 14:12 S
--- NOTE | 2023-04-12 09:50 | XRR_ITS ---
PROCEDURE INFORMATION: Exam: XR Chest Exam date and time: 04/12/2023 8:56 AM Age: 73 years old Clinical indication: Other: Poss aspiration; Additional info: Possible aspiration TECHNIQUE: Imaging protocol: Radiologic exam of the chest. Views: 1 view. Total images: 1142 COMPARISON: CR XR chest 1V portable [id number] 04/11/2023 11:31 AM FINDINGS: Lungs: Benign granulomatous disease of the lung is noted. Nonspecific mild left lung base opacity favors atelectasis or pneumonia. Pleural spaces: Unremarkable. No pleural effusion. No pneumothorax. Heart/Mediastinum: Unremarkable. No cardiomegaly. Vasculature: Atherosclerosis is evident. Bones/joints: Osseous structures are unchanged from the prior exam. XR/XR chest 1V portable [id number] IMPRESSION: Nonspecific mild left lung base opacity favors atelectasis or pneumonia.
[2023-04-12] MEDS: aztreonam 1,000 MG in sodium chloride 0.9% (plus) 50 ML 100 MG IV ×2 (09:52→21:37)
--- NOTE | 2023-04-12 11:00 | PM.PN ---
Subjective Subjective: This morning patient is drowsy however not on Precedex Overnight blood pressure dropped he was transferred to ICU for use of Precedex because patient was very agitated and noncooperative This morning I requested D-dimer, echo and chest x-ray Vitals/I&O/Wt Last Vital Signs Temp 98.0 F 04/11/23 16:13 Pulse 99 04/12/23 10:00 Resp 17 04/12/23 10:00 BP 79/50 04/12/23 10:00 Pulse Ox 96 04/12/23 09:10 O2 Del Method Room Air 04/12/23 09:10 04/11/23 04/12/23 04/12/23 22:59 06:59 14:59 Intake Total 620 / 620 500 / 1120 1000 / 1000 Output Total 125 / 125 Balance 620 / 620 375 / 995 1000 / 1000 Weight last 48 hrs Weight 102.965 kg Weight 108.862 kg Physical Exam Narrative: Morbidly obese Anasarca Drowsy Able to answer questions appropriately Treadwell catheter draining concentrated urine Abdomen distended nontender S1, S2 Nonfocal neuro exam Sitting in a chair Urinary Catheter Management: Treadwell: Cath Placed During This Visit: yes, but has since been removed by the nurse Reason for Continuing Indwelling Catheter: Accurate Measurement of Urinary Output in Critically Ill Patients Urinary Catheter Date of Insertion: 04/11/23 Urinary Catheter Time of Insertion: 22:20 Date Urinary Catheter Removed: 04/11/23 Time Urinary Catheter Discontinued: 19:00 Data 04/12/23 02:52 04/12/23 02:52 Micro: Microbiology 04/12/23 07:33 Blood Culture - Preliminary Blood SPECIMEN COLLECTED 04/12/23 07:29 Blood Culture - Preliminary Blood SPECIMEN COLLECTED A&P Assessment and plan (1) GHADA (acute kidney injury): (2) Alcoholic hepatitis: (3) Generalized weakness: (4) Acute hyponatremia: (5) Hypertrophy of prostate: (6) Alcohol abuse: (7) Acute on chronic anemia: (8) ETOH abuse: (9) Urinary retention: (10) Aspiration pneumonia: Plan Aspiration pneumonia Discontinue vancomycin Continue Zosyn Requested D-dimer Third spacing causing low blood pressure We will give him albumin Check D-dimer Requested echo Patient has been afebrile no leukocytosis he is not in septic shock Currently on Levophed at 4 mics Abnormal TSH, requested free T4 Severe hypomagnesemia: IV magnesium administered Alcoholic hepatitis: Bilirubin 4, MELD score above 20, GHADA: Creatinine resolving Most likely patient was retaining urine history of BPH present Drowsy, ammonia level is within normal range, Precedex turned off Patient is high risk for alcohol withdrawal, DTs, will use phenobarbital if needed for CIWA greater than 8 Full code Medical DPOA is his friend Mr. Villegas Will require speech therapy, change diet to pur?ed for now Will request PICC line Attestations Medical Necessity Statement*: Continue ICU management Diagnoses GHADA (acute kidney injury) N17.9 Alcoholic hepatitis K70.10 Generalized weakness R53.1 Acute hyponatremia E87.1 Hypertrophy of prostate N40.0 Alcohol abuse F10.10 Acute on chronic anemia D64.9 Urinary retention R33.9 Aspiration pneumonia J69.0
--- NOTE | 2023-04-12 11:08 | USR_ITS ---
PROCEDURE INFORMATION: Exam: US Duplex Lower Extremity Veins, Bilateral Exam date and time: 04/12/2023 11:32 AM Age: 73 years old Clinical indication: Swelling (edema) of limb; Lower extremity, bilateral TECHNIQUE: Imaging protocol: Real-time duplex ultrasound of the bilateral extremities with 2-D hernandez scale, color Doppler flow and spectral waveform analysis including responses to compression and other maneuvers (when performed) with image documentation. Complete exam focused on the lower extremity veins. Total images: 994 COMPARISON: CT ang ches abdpel [id number] 11/15/2022 2:35 PM FINDINGS: Right deep veins: Unremarkable. The common femoral, femoral, proximal profunda femoral and popliteal veins are patent without thrombus. Normal Doppler waveforms. Normal compressibility and/or augmentation response. Right superficial veins: Saphenofemoral junction is patent without thrombus. Left deep veins: Unremarkable. The common femoral, femoral, proximal profunda femoral and popliteal veins are patent without thrombus. Normal Doppler waveforms. Normal compressibility and/or augmentation response. Left superficial veins: Saphenofemoral junction is patent without thrombus. Soft tissues: Mild subcutaneous edema detected in both legs. US/[place] [id number] IMPRESSION: No evidence of deep vein thrombosis.
[2023-04-12 11:16] LABS: D Dimer 0.81 ug/mIFEU (0-0.59)
[2023-04-12] MEDS: hydrocortisone 100 mg/2 mL SDV IVP ×2 (12:16→23:42)
[2023-04-12] MEDS: metroNIDAZOLE 500 MG Tablet PO ×2 (14:02→20:38)
[2023-04-12 16:30] LABS: Hematocrit 28.3 % (42.0-52.0); Hemoglobin 9.6 g/dL (11.7-16.6)
[2023-04-12] MEDS: tamsulosin 0.4 mg Capsule 0.8 MG PO (20:38)
[2023-04-13] VITALS (19 sets, daily range): BP systolic 96–127; BP diastolic 57–79; PULSE 76–114; RESP 16–20; TEMP 36.2–36.7; O2SAT 90–100
[2023-04-13] MEDS: heparin 5,000 unit/mL INJ 1 mL 5000 UNIT SUBCUT ×2 (01:55→14:54)
[2023-04-13 04:41] LABS: Basophils % 0.4 %; Eosinophils % 0.1 %; Hematocrit 28.6 % (42.0-52.0); Hemoglobin 9.7 g/dL (11.7-16.6); Lymphocytes # 0.7 10^3/uL (0.8-4.8); Lymphocytes % 8.1 %; Mean Corpuscular HGB Conc 33.9 g/dL (30.0-36.0); Mean Corpuscular Hemoglobin 37.5 pg (28.0-34.0); Mean Corpuscular Volume 110.4 fl (80-94); Mean Platelet Volume 10.9 fL (7.4-10.4); Monocytes # 0.6 10^3/uL (0.2-0.9); Monocytes % 7.5 %; Neutrophils # 6.68 10^3/uL (1.8-7.7); Neutrophils % 80.8 %; Nucleated Red Blood Cells # 0.1 /100WBC; Nucleated Red Blood Cells % 0.7 %; Platelet Count 213 10^3/cmm (130-400); Red Blood Count 2.59 10^6/uL (4.1-5.3); Red Cell Distribution Width 15.5 % (12.1-15.1); White Blood Count 8.3 10^3/uL (4.0-10.0)
[2023-04-13 04:57] LABS: Alanine Aminotransferase 119 U/L (0-41); Albumin Level 2.6 g/dL (3.5-5.2); Alkaline Phosphatase 170 U/L (40-130); Aspartate Amino Transferase 210 U/L (0-40); Blood Urea Nitrogen 12 mg/dL (8-23); Calcium 8.8 mg/dL (8.5-10.5); Carbon Dioxide 20 mmol/L (22-29); Chloride 89 mmol/L (98-107); Globulin 2.9 g/dL (1.3-4.6); Glucose 110 mg/dL (65-115); Osmolality Calculated 260 mOsm/kg (285-295); Sodium 125 mmol/L (136-145); Total Bilirubin 4.2 mg/dL (0.15-1.2); Total Protein 5.5 g/dL (6.6-8.7)
[2023-04-13 04:58] LABS: Creatinine Clr Calc Pharmacy 49.4805
[2023-04-13 04:59] LABS: Anion Gap 20.2 (5-19); Potassium 4.2 mmol/L (3.5-5.1)
--- NOTE | 2023-04-13 05:25 | PC.NURSE ---
Report called to Orlando Boss RN, [facility] @ [phone]
--- NOTE | 2023-04-13 05:45 | PC.NURSE ---
80ml of precedex wasted with Pinky FRENCH @ 8101.
[2023-04-13] MEDS: allopurinol 300 mg Tablet PO (08:28)
[2023-04-13] MEDS: folic acid 1 mg Tablet PO (08:28)
[2023-04-13] MEDS: magnesium oxide 400 mg tablet PO ×2 (08:28→18:07)
[2023-04-13] MEDS: thiamine 100 mg Tablet PO (08:28)
[2023-04-13] MEDS: metroNIDAZOLE 500 MG Tablet PO (08:28)
[2023-04-13] MEDS: lactulose oral liq 20 gm/30 mL UDC PO ×2 (08:28→20:33)
[2023-04-13] MEDS: pantoprazole DR 40 mg Tablet PO (08:28)
[2023-04-13] MEDS: potassium chloride ER 10 mEq Tablet PO (08:28)
[2023-04-13] MEDS: aztreonam 1,000 MG in sodium chloride 0.9% (plus) 50 ML 100 MG IV (11:16)
[2023-04-13] MEDS: hydrocortisone 100 mg/2 mL SDV IVP (11:29)
--- NOTE | 2023-04-13 11:53 | P.PN_ITS ---
Subjective Subjective: Patient has been transferred out of ICU Requiring one-to-one supervision However I do not see any signs of significant withdrawal He has not received phenobarbital in the last 48 hours Off Precedex Levophed turned off yesterday Afebrile Not requiring oxygen despite aspiration Nares MRSA PCR negative Blood cultures negative Vitals/I&O/Wt Last Vital Signs Temp 97.3 F L 04/13/23 11:00 Pulse 113 H 04/13/23 11:00 Resp 20 H 04/13/23 11:00 BP 110/57 04/13/23 11:00 Pulse Ox 96 04/13/23 11:00 O2 Del Method Room Air 04/13/23 11:00 04/12/23 04/13/23 04/13/23 22:59 06:59 14:59 Intake Total 0 / 6881.253 2306 / 1710 Output Total 300 / 300 150 / 450 Balance -300 / 1214.902 -150 / 0430.293 6257 / 1710 Weight last 48 hrs Weight 102.965 kg Physical Exam Narrative: Patient is awake and alert Anasarca Abdomen soft Dark urine noted Patient sitting in a recliner Able to communicate with me Slightly drowsy No signs of meningitis No audible stridor or wheezing Currently on room air S1, S2 sinus tachycardia Urinary Catheter Management: Treadwell: Cath Placed During This Visit: yes, but has since been removed by the nurse Reason for Continuing Indwelling Catheter: Other Urinary Catheter Date of Insertion: 04/11/23 Urinary Catheter Time of Insertion: 22:20 Date Urinary Catheter Removed: 04/11/23 Time Urinary Catheter Discontinued: 19:00 Data 04/13/23 04:22 04/13/23 04:22 Micro: Microbiology 04/12/23 07:33 Blood Culture - Preliminary Blood NEGATIVE TO DATE 04/12/23 07:29 Blood Culture - Preliminary Blood NEGATIVE TO DATE 04/12/23 12:30 MRSA Culture - Final Nose A&P Assessment and plan (1) Aspiration pneumonia: (2) GHADA (acute kidney injury): (3) Alcoholic hepatitis: (4) Generalized weakness: (5) Acute hyponatremia: (6) Hypertrophy of prostate: (7) Alcohol abuse: (8) Acute on chronic anemia: (9) Thrombocytopenia: (10) Urinary retention: Plan Alcohol abuse No significant withdrawal We will keep him n.p.o. for now barbital on as-needed basis Continue thiamine folic acid Aspiration pneumonia Change antibiotics to Augmentin Discontinue IV antibiotic Cultures negative Nares MRSA negative Afebrile Currently on room air Significant hypomagnesemia: 4 g of IV mag given Recheck mag tomorrow continue p.o. 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 Villegas Patient is full code History of DTs, VT prophylaxis heparin GI prophylaxis BPH: Continue tamsulosin Attestations Medical Necessity Statement*: Continue medical management anticipating discharge to [facility] in next 48 hours Diagnoses Aspiration pneumonia J69.0 GHADA (acute kidney injury) N17.9 Alcoholic hepatitis K70.10 Generalized weakness R53.1 Acute hyponatremia E87.1 Hypertrophy of prostate N40.0 Alcohol abuse F10.10 Acute on chronic anemia D64.9 Thrombocytopenia D69.6 Urinary retention R33.9
[2023-04-13] MEDS: sodium chloride 1 gm Tablet PO (18:07)
[2023-04-13] MEDS: amoxicillin-clav 875-125 mg Tablet 1 TAB PO (18:07)
[2023-04-13] MEDS: tamsulosin 0.4 mg Capsule 0.8 MG PO (20:33)
[2023-04-14] VITALS (13 sets, daily range): BP systolic 106–136; BP diastolic 64–84; PULSE 72–130; RESP 15–20; TEMP 36.4–36.8; O2SAT 92–98
[2023-04-14] MEDS: heparin 5,000 unit/mL INJ 1 mL 5000 UNIT SUBCUT ×2 (01:49→13:47)
[2023-04-14 07:37] LABS: Basophils % 0.3 %; Eosinophils % 0.2 %; Hematocrit 27.6 % (42.0-52.0); Lymphocytes # 1.3 10^3/uL (0.8-4.8); Lymphocytes % 11.8 %; Mean Corpuscular HGB Conc 32.6 g/dL (30.0-36.0); Mean Corpuscular Hemoglobin 36.4 pg (28.0-34.0); Mean Corpuscular Volume 111.7 fl (80-94); Mean Platelet Volume 10.6 fL (7.4-10.4); Monocytes # 1.2 10^3/uL (0.2-0.9); Monocytes % 10.9 %; Neutrophils # 7.89 10^3/uL (1.8-7.7); Neutrophils % 71.8 %; Nucleated Red Blood Cells # 0.1 /100WBC; Nucleated Red Blood Cells % 0.7 %; Platelet Count 226 10^3/cmm (130-400); Red Blood Count 2.47 10^6/uL (4.1-5.3); Red Cell Distribution Width 16.2 % (12.1-15.1)
[2023-04-14 08:13] LABS: Magnesium 1.7 mg/dL (1.7-2.3)
[2023-04-14 08:14] LABS: Alanine Aminotransferase 121 U/L (0-41); Albumin Level 2.8 g/dL (3.5-5.2); Alkaline Phosphatase 188 U/L (40-130); Aspartate Amino Transferase 185 U/L (0-40); Blood Urea Nitrogen 17 mg/dL (8-23); Calcium 8.8 mg/dL (8.5-10.5); Carbon Dioxide 23 mmol/L (22-29); Chloride 92 mmol/L (98-107); Globulin 2.7 g/dL (1.3-4.6); Glucose 93 mg/dL (65-115); Osmolality Calculated 269 mOsm/kg (285-295); Sodium 129 mmol/L (136-145); Total Bilirubin 4.2 mg/dL (0.15-1.2); Total Protein 5.5 g/dL (6.6-8.7)
[2023-04-14] MEDS: folic acid 1 mg Tablet PO (08:32)
[2023-04-14] MEDS: magnesium oxide 400 mg tablet PO ×2 (08:32→17:25)
[2023-04-14] MEDS: lactulose oral liq 20 gm/30 mL UDC PO ×2 (08:32→20:22)
[2023-04-14] MEDS: sodium chloride 1 gm Tablet PO ×2 (08:32→17:25)
[2023-04-14] MEDS: thiamine 100 mg Tablet PO (08:33)
[2023-04-14] MEDS: amoxicillin-clav 875-125 mg Tablet 1 TAB PO ×2 (08:33→17:25)
[2023-04-14] MEDS: pantoprazole DR 40 mg Tablet PO (08:33)
[2023-04-14] MEDS: allopurinol 300 mg Tablet PO (08:33)
--- NOTE | 2023-04-14 08:46 | US_ITS ---
WS: [id number] Complete ABDOMINAL ULTRASOUND HISTORY: RIGHT upper quadrant pain. COMPARISON: 09/04/2016 Liver: 15.6 cm in length. Very dense liver. Poor penetration. No bile duct dilatation and no [place] ntified. Portal Vein: Difficult to visualize due to dense liver. Gallbladder: Contracted gallbladder with shadowing. The gallbladder is difficult to visualize. Suspec t gallbladder is contracted with stones. Gallbladder was contracted on 11/15/2022 also. CBD: 0.5 cm Pancreas: Completely obscured. Right kidney: 10.9 cm x 5.8 x 5.0 cm. Cortex:1.0 cm. Normal size and echogenicity. No hydronephrosis. Cyst upper pole measures 4.0 x 3.8 cm. Left kidney: 11.9 cm x 5.3 cm x 5.2 cm. Cortex: 1.2 cm. Normal size and echogenicity. No hydronephrosis or mass. Spleen: 11.8 cm in length. Granulomata. Aorta and IVC: Unremarkable abdominal aorta and IVC. US/US abdomen complete* [id number] Impression: 1. Contracted gallbladder. There is shadowing from the region of the gallbladd er fossa. Suspect the gallbladder is contracted with stones. Limited visualizat ion of the gallbladder. 2. Marked hepatic steatosis. 3. No hydronephrosis. 4. RIGHT renal cyst.
--- NOTE | 2023-04-14 09:42 | PC.SOCIAL ---
IMM update IMM updated with patient's DPOA Ghassan. Verbalized an understanding. Copy Pg 2 provided. Initialled, dated, timed, and placed in chart.
--- NOTE | 2023-04-14 14:43 | PM.PN ---
Subjective Subjective: Patient was seen this morning, he is alert to person, to place, to time, he does follow commands, he did tell me that he got up into a chair, he continues to have diarrhea this morning, denies abdominal pain, reports weakness, poor appetite, I had a discussion with patient's family outside the room including patient's sister and brother, they tell me that they are worried about him going home too soon, they think that he will require penitentiary placement for rehab, he has significant deconditioning, this is his fourth or fifth hospitalization for alcohol intoxication withdrawal, they are also worried about his liver status, they are worried about him progressing to liver cirrhosis, family tells me that he has had issues with swelling in the past, has had esophageal dilatation in the past Vitals/I&O/Wt Last Vital Signs Temp 97.6 F 04/14/23 12:12 Pulse 118 H 04/14/23 14:00 Resp 16 04/14/23 12:12 BP 123/74 04/14/23 12:12 Pulse Ox 98 04/14/23 12:12 O2 Del Method Room Air 04/14/23 12:12 04/13/23 04/14/23 04/14/23 22:59 06:59 14:59 Intake Total 240 / 2480 480 / 480 Output Total 400 / 400 Balance -160 / 2080 480 / 480 Physical Exam Const: COMMON NORMALS: no acute distress and patient oriented x3 Resp: COMMON NORMALS: normal respiratory effort, No retractions, No use of accessory muscles and clear to auscultation bilaterally AUSCULTATION: clear to auscultation bilaterally Cardio: COMMON NORMALS: regular rate, regular rhythm, S1 normal heart sound present and S2 normal heart sound present RATE: regular rate RHYTHM: regular rhythm HEART SOUNDS: S1 normal heart sound present and S2 normal heart sound present GI: COMMON NORMALS: Normal to inspection, nondistended, normoactive bowel sounds present and non-tender Extremity: COMMON NORMALS: no pedal edema Neuro: COMMON NORMALS: patient oriented x3 Psych: COMMON NORMALS: mental status grossly normal Urinary Catheter Management: Treadwell: Cath Placed During This Visit: yes, but has since been removed by the nurse Reason for Continuing Indwelling Catheter: Other Urinary Catheter Date of Insertion: 04/11/23 Urinary Catheter Time of Insertion: 22:20 Date Urinary Catheter Removed: 04/11/23 Time Urinary Catheter Discontinued: 19:00 Data 04/14/23 07:22 04/14/23 07:22 Micro: Microbiology 04/13/23 01:45 Gram Stain - Final Sputum - Expectorated Sputum A&P Assessment and plan (1) Aspiration pneumonia: (2) GHADA (acute kidney injury): (3) Alcoholic hepatitis: (4) Generalized weakness: (5) Acute hyponatremia: (6) Hypertrophy of prostate: (7) Alcohol abuse: (8) Acute on chronic anemia: (9) Thrombocytopenia: (10) Urinary retention: (11) Anemia: (12) Hyponatremia: (13) Protein-calorie malnutrition, moderate: (14) Physical deconditioning: Plan Alcohol abuse Currently no withdrawal symptoms Continue to monitor Continue thiamine folic acid Aspiration pneumonia Change antibiotics to Augmentin Cultures negative Nares MRSA negative Afebrile Currently on room air Speech therapy evaluating Significant hypomagnesemia: Magnesium 1.7, continue p.o. 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 Villegas Patient is full code History of DTs, VT prophylaxis heparin GI prophylaxis BPH: Continue tamsulosin Plan for today PT OT evaluation, speech therapy evaluation, up out of bed, liver ultrasound, monitor mentation Attestations Medical Necessity Statement*: Patient requires hospitalization for alcohol withdrawal, ataxia related to Warnicke's encephalopathy versus neuropathy, transaminitis hyperbilirubinemia Diagnoses Aspiration pneumonia J69.0 GHADA (acute kidney injury) N17.9 Alcoholic hepatitis K70.10 Generalized weakness R53.1 Acute hyponatremia E87.1 Hypertrophy of prostate N40.0 Alcohol abuse F10.10 Acute on chronic anemia D64.9 Thrombocytopenia D69.6 Urinary retention R33.9 Anemia D64.9 Hyponatremia E87.1 Protein-calorie malnutrition, moderate E44.0 Physical deconditioning R53.81
--- NOTE | 2023-04-14 20:20 | ECG_ITS ---
[facility] Test Date: 2023-04-14 Pat Name: Trenton Sainz Department: Room: 253 Gender: Male [employer]: : 1950 Requested By: Margarita Salazar Order Number: [id number] Licha MD: Maximo Feldman M.D. Measurements Intervals Raymond Rate: 125 P: 0 SD: 0 QRS: 53 QRSD: 118 T: 30 QT: 315 QTc: 455 Interpretive Statements ATRIAL FLUTTER WITH RAPID VENTRICULAR RESPONSE LOW QRS VOLTAGE IN PRECORDIAL LEADS [QRS DEFLECTION < 1.0 mV IN CHEST LEADS] INCOMPLETE RIGHT BUNDLE BRANCH BLOCK [90+ ms QRS DURATION, TERMINAL R IN V1/V2, 40+ ms S IN I/aVL/V4/V5/V6] ST DEVIATION AND MODERATE T-WAVE ABNORMALITY, CONSIDER ANTERIOR ISCHEMIA [-0.1+ mV T-WAVE IN V3/V4] Compared to ECG 04/11/2023 15:59:26 Low QRS voltage now present Incomplete right bundle-branch block now present T-wave abnormality now present Possible ischemia now present Right bundle-branch block no longer present Electronically Signed On 04-15-2023 7:58:28 CDT by Maximo Feldman M.D. [id number]
[2023-04-14] MEDS: tamsulosin 0.4 mg Capsule 0.8 MG PO (20:22)
[2023-04-14] MEDS: metoprolol tartrate 25 mg Tablet 12.5 MG PO (20:22)
[2023-04-14] MEDS: sodium chloride 0.9% 500 ML 999 ML IV (21:08)
[2023-04-14] MEDS: metoprolol tartrate 1 mg/1 mL SDV 5 mL 5 MG IVP (23:39)
[2023-04-15] VITALS (11 sets, daily range): BP systolic 108–120; BP diastolic 57–73; PULSE 103–116; RESP 17–20; TEMP 36.3–36.8; O2SAT 95–99
[2023-04-15] MEDS: heparin 5,000 unit/mL INJ 1 mL 5000 UNIT SUBCUT ×2 (02:36→13:27)
[2023-04-15 06:32] LABS: Hematocrit 27.8 % (42.0-52.0); Hemoglobin 9.2 g/dL (11.7-16.6); Mean Corpuscular HGB Conc 33.1 g/dL (30.0-36.0); Mean Corpuscular Hemoglobin 37.9 pg (28.0-34.0); Mean Corpuscular Volume 114.4 fl (80-94); Mean Platelet Volume 10.8 fL (7.4-10.4); Platelet Count 232 10^3/cmm (130-400); Red Blood Count 2.43 10^6/uL (4.1-5.3); Red Cell Distribution Width 17.5 % (12.1-15.1); White Blood Count 7.1 10^3/uL (4.0-10.0)
[2023-04-15 06:50] LABS: Alanine Aminotransferase 106 U/L (0-41); Albumin Level 2.7 g/dL (3.5-5.2); Alkaline Phosphatase 195 U/L (40-130); Aspartate Amino Transferase 145 U/L (0-40); Blood Urea Nitrogen 19 mg/dL (8-23); Calcium 8.6 mg/dL (8.5-10.5); Carbon Dioxide 25 mmol/L (22-29); Chloride 94 mmol/L (98-107); Globulin 2.8 g/dL (1.3-4.6); Glucose 93 mg/dL (65-115); Magnesium 1.6 mg/dL (1.7-2.3); Osmolality Calculated 274 mOsm/kg (285-295); Sodium 131 mmol/L (136-145); Total Bilirubin 4.5 mg/dL (0.15-1.2); Total Protein 5.5 g/dL (6.6-8.7)
[2023-04-15 07:17] LABS: Slide Review Slide Review Perform
[2023-04-15 07:18] LABS: Total Cells Counted 100 (0-100)
[2023-04-15 07:19] LABS: Phosphorus 0.5 mg/dL (2.5-4.5)
[2023-04-15 07:20] LABS: Absolute Eosinophils 0.1 10^3/cmm (0.0-0.7); Absolute Neutrophil 4.1 10^3/cmm (1.4-6.5); Anisocytosis 1+; Band Neutrophils Absolute 0.1 10^3/cmm (0.0-1.2); Eosinophils 2 %; Lymphocytes 24 %; Lymphocytes Absolute 1.7 10^3/cmm (1.2-3.4); Macrocytosis 1+; Monocytes Absolute 0.8 10^3/cmm (0.1-0.6); Platelet Estimate Normal (Normal); Segmented Neutrophils 56 %
[2023-04-15] MEDS: thiamine 100 mg Tablet PO (08:31)
[2023-04-15] MEDS: metoprolol tartrate 25 mg Tablet 12.5 MG PO ×2 (08:31→21:25)
[2023-04-15] MEDS: amoxicillin-clav 875-125 mg Tablet 1 TAB PO ×2 (08:31→17:41)
[2023-04-15] MEDS: sodium chloride 1 gm Tablet PO ×2 (08:31→17:42)
[2023-04-15] MEDS: folic acid 1 mg Tablet PO (08:31)
[2023-04-15] MEDS: pantoprazole DR 40 mg Tablet PO (08:31)
[2023-04-15] MEDS: magnesium oxide 400 mg tablet PO ×2 (08:31→17:42)
[2023-04-15] MEDS: allopurinol 300 mg Tablet PO (08:31)
[2023-04-15] MEDS: phosphorus 250 mg Tablet PO ×2 (10:14→17:42)
--- NOTE | 2023-04-15 15:24 | P.PN_ITS ---
Subjective Subjective: Patient was seen this morning, he is alert to person, to place, not to time, he follows commands, I asked him why he was here in the hospital, and he tells me sarcastically because it is because of his alcohol consumption, Vitals/I&O/Wt Last Vital Signs Temp 98.2 F 04/15/23 07:10 Pulse 108 H 04/15/23 12:00 Resp 18 04/15/23 12:00 BP 117/65 04/15/23 12:00 Pulse Ox 95 04/15/23 12:00 O2 Del Method Room Air 04/15/23 12:00 04/15/23 04/15/23 04/15/23 06:59 14:59 22:59 Intake Total 360 / 360 Output Total 300 / 700 250 / 250 Balance -300 / 520 110 / 110 Physical Exam Const: COMMON NORMALS: no acute distress ORIENTATION/CONSCIOUSNESS: Yes awake, Yes oriented to person and Yes oriented to place; not oriented to time Resp: COMMON NORMALS: normal respiratory effort, No retractions, No use of accessory muscles and clear to auscultation bilaterally AUSCULTATION: clear to auscultation bilaterally Cardio: COMMON NORMALS: regular rate, regular rhythm, S1 normal heart sound pr esent and S2 normal heart sound present RATE: regular rate RHYTHM: regular rhythm HEART SOUNDS: S1 normal heart sound present and S2 normal heart sound present GI: COMMON NORMALS: Normal to inspection, nondistended, normoactive bowel sounds present and non-tender Extremity: COMMON NORMALS: no pedal edema Neuro: SENSORIUM/ORIENTATION: Yes oriented to person, Yes oriented to place and No oriented to time Psych: COMMON NORMALS: mental status grossly normal Urinary Catheter Management: Treadwell: Cath Placed During This Visit: yes, but has since been removed by the nurse Reason for Continuing Indwelling Catheter: Assist Healing of Perineal & Sacral Wounds- Incontinent Patients Urinary Catheter Date of Insertion: 04/11/23 Urinary Catheter Time of Insertion: 22:20 Date Urinary Catheter Removed: 04/11/23 Time Urinary Catheter Discontinued: 19:00 Data 04/15/23 05:09 04/15/23 05:09 Micro: Microbiology 04/13/23 01:45 Gram Stain - Final Sputum - Expectorated Sputum Sputum Culture - Final 04/14/23 16:20 Urine Culture - Preliminary Urine Catheterized A&P Assessment and plan (1) Aspiration pneumonia: (2) GHADA (acute kidney injury): (3) Alcoholic hepatitis: (4) Generalized weakness: (5) Acute hyponatremia: (6) Hypertrophy of prostate: (7) Alcohol abuse: (8) Acute on chronic anemia: (9) Thrombocytopenia: (10) Urinary retention: (11) Anemia: (12) Hyponatremia: (13) Protein-calorie malnutrition, moderate: (14) Physical deconditioning: (15) Hypophosphatemia: (16) Hypomagnesemia: (17) Hypoalbuminemia: Plan Alcohol abuse Currently no withdrawal symptoms Continue to monitor Continue thiamine folic acid Aspiration pneumonia Continue Augmentin Cultures negative Nares MRSA negative Afebrile Currently on room air Speech therapy evaluating Significant hypomagnesemia: Magnesium 1.6, continue p.o. magnesium Hypophosphatemia, will replace p.o. 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 Villegas Patient is full code History of DTs, VT prophylaxis heparin GI prophylaxis BPH: Continue tamsulosin Plan for today PT OT evaluation, speech therapy evaluation, up out of bed, replace electrolytes, dietary recommendations Attestations Medical Necessity Statement*: Patient requires hospitalization for aspiration pneumonia, hypomagnesemia, hypophosphatemia, alcoholic related liver cirrhosis, monitoring for alcohol withdrawal, hyperbilirubinemia, ataxia, GHADA, hyponatremia, hypoalbuminemia Diagnoses Aspiration pneumonia J69.0 GHADA (acute kidney injury) N17.9 Alcoholic hepatitis K70.10 Generalized weakness R53.1 Acute hyponatremia E87.1 Hypertrophy of prostate N40.0 Alcohol abuse F10.10 Acute on chronic anemia D64.9 Thrombocytopenia D69.6 Urinary retention R33.9 Anemia D64.9 Hyponatremia E87.1 Protein-calorie malnutrition, moderate E44.0 Physical deconditioning R53.81 Hypophosphatemia E83.39 Hypomagnesemia E83.42 Hypoalbuminemia E88.09
[2023-04-15] MEDS: tamsulosin 0.4 mg Capsule 0.8 MG PO (21:25)
[2023-04-15] MEDS: lactulose oral liq 20 gm/30 mL UDC PO (21:26)
[2023-04-16] VITALS (7 sets, daily range): BP systolic 114–127; BP diastolic 66–79; PULSE 101–109; RESP 16–20; TEMP 36.4–36.8; O2SAT 95–99
[2023-04-16] MEDS: heparin 5,000 unit/mL INJ 1 mL 5000 UNIT SUBCUT (02:10)
[2023-04-16] MEDS: levothyroxine 25 mcg Tablet PO (05:49)
[2023-04-16 06:18] LABS: Hematocrit 29.1 % (42.0-52.0); Hemoglobin 9.4 g/dL (11.7-16.6); Mean Corpuscular HGB Conc 32.3 g/dL (30.0-36.0); Mean Corpuscular Volume 114.6 fl (80-94); Mean Platelet Volume 10.7 fL (7.4-10.4); Platelet Count 250 10^3/cmm (130-400); Red Blood Count 2.54 10^6/uL (4.1-5.3); White Blood Count 6.3 10^3/uL (4.0-10.0)
[2023-04-16 06:35] LABS: Alanine Aminotransferase 91 U/L (0-41); Albumin Level 2.7 g/dL (3.5-5.2); Alkaline Phosphatase 199 U/L (40-130); Aspartate Amino Transferase 116 U/L (0-40); Blood Urea Nitrogen 20 mg/dL (8-23); Calcium 8.4 mg/dL (8.5-10.5); Carbon Dioxide 25 mmol/L (22-29); Chloride 97 mmol/L (98-107); Globulin 2.6 g/dL (1.3-4.6); Glucose 85 mg/dL (65-115); Magnesium 1.6 mg/dL (1.7-2.3); Osmolality Calculated 278 mOsm/kg (285-295); Sodium 133 mmol/L (136-145); Total Bilirubin 3.8 mg/dL (0.15-1.2); Total Protein 5.3 g/dL (6.6-8.7)
[2023-04-16 06:51] LABS: Phosphorus 0.5 mg/dL (2.5-4.5)
[2023-04-16 07:09] LABS: Slide Review Slide Review Perform
[2023-04-16 07:12] LABS: Absolute Segmented Neutrophil 3.8 10/cmm (1.6-7.1); Band Neutrophils Absolute 0.3 10^3/cmm (0.0-1.2); Eosinophils 1 %; Lymphocytes 22 %; Lymphocytes Absolute 1.4 10^3/cmm (1.2-3.4); Monocytes Absolute 0.4 10^3/cmm (0.1-0.6); Segmented Neutrophils 60 %; Total Cells Counted 100 (0-100)
[2023-04-16 07:13] LABS: Giant Platelets Trace; Smudge Cells 1+
[2023-04-16 07:14] LABS: Absolute Neutrophil 4.1 10^3/cmm (1.4-6.5); Platelet Estimate Normal (Normal)
[2023-04-16] MEDS: phosphorus 250 mg Tablet PO (08:17)
[2023-04-16] MEDS: lactulose oral liq 20 gm/30 mL UDC PO (08:18)
[2023-04-16] MEDS: metoprolol tartrate 25 mg Tablet 12.5 MG PO (08:18)
[2023-04-16] MEDS: allopurinol 300 mg Tablet PO (08:18)
[2023-04-16] MEDS: thiamine 100 mg Tablet PO (08:18)
[2023-04-16] MEDS: amoxicillin-clav 875-125 mg Tablet 1 TAB PO (08:18)
[2023-04-16] MEDS: magnesium oxide 400 mg tablet PO (08:18)
[2023-04-16] MEDS: folic acid 1 mg Tablet PO (08:18)
[2023-04-16] MEDS: pantoprazole DR 40 mg Tablet PO (08:18)
[2023-04-16] MEDS: sodium chloride 1 gm Tablet PO (08:18)
--- NOTE | 2023-04-16 11:14 | PM.DCS ---
Discharge Providers Date of Admission: 04/11/23 12:32 Date of Discharge: April 16, 2023 Attending Provider at Admission: Rigoberto Mcgrath MD Attending Provider at Discharge: Dale Cruz MD Primary Care Provider: Paula Mo MD Diagnoses at Discharge Discharge Diagnosis (1) Aspiration pneumonia: Status: Acute (2) GHADA (acute kidney injury): Status: Acute (3) Alcoholic hepatitis: Status: Acute (4) Generalized weakness: Status: Acute (5) Acute hyponatremia: Status: Acute (6) Hypertrophy of prostate: Status: Acute (7) Alcohol abuse: Status: Acute (8) Acute on chronic anemia: Status: Acute (9) Thrombocytopenia: Status: Acute (10) Urinary retention: Status: Acute (11) Anemia: Status: Acute (12) Hyponatremia: Status: Acute (13) Protein-calorie malnutrition, moderate: Status: Acute (14) Physical deconditioning: Status: Acute (15) Hypophosphatemia: Status: Acute (16) Hypomagnesemia: Status: Acute (17) Hypoalbuminemia: Status: Acute Reason for Visit Reason for Visit: Not able to walk, ankles swellings Hospital Course Hospital Course Trenton Sainz is a 73 year old male with history of alcohol dependence, patient was sent to [place] by IV physician in the past where he recovered from his alcohol dependency but relapsed and started drinking again presenting today for not been able to care for himself, patient does not have any family, he never got , there is a friend who is medical DPOA Mr. Villegas he brought him here because he is just drinking alcohol 1 pint of whiskey every day not eating well not been able to take care of himself not been able to walk.? In the ER he has been diagnosed with alcohol-related hepatitis he is jaundiced, patient is endorsing history of alcohol withdrawal, DTs patient is stating that last time he was intubated there were some esophageal injury and bleeding for which she was transferred to [place] \His last alcoholic drink was probably on 04/10 Alcohol-related hyponatremia, GHADA, high bilirubin, ammonia level is normal, patient is able to give me history Patient was admitted to [facility] for concerns for alcohol abuse, monitored as inpatient for withdrawal symptoms, none significantly during his hospitalization, discharged on thiamine, folic acid,?last for skilled rehab He had aspiration pneumonia during his hospitalization, discharged on Augmentin therapy Had hypomagnesemia, hypophosphatemia during his hospitalization requiring replacement, discharged on p.o. 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 Hyperbilirubinemia, transaminitis, likely secondary to alcoholism, monitor as outpatient Hyponatremia, likely related to beers [place] Physical deconditioning, protein eli malnutrition, secondary alcoholism, advised abstain from alcohol consumption Physical Exam Const: COMMON NORMALS: no acute distress and patient oriented x3 Resp: COMMON NORMALS: normal respiratory effort, No retractions, No use of accessory muscles and clear to auscultation bilaterally AUSCULTATION: clear to auscultation bilaterally Cardio: COMMON NORMALS: regular rate, regular rhythm, S1 normal heart sound present and S2 normal heart sound present RATE: regular rate RHYTHM: regular rhythm HEART SOUNDS: S1 normal heart sound present and S2 normal heart sound present GI: COMMON NORMALS: Normal to inspection, nondistended, normoactive bowel sounds present and non-tender Extremity: COMMON NORMALS: no pedal edema Neuro: COMMON NORMALS: patient oriented x3 Psych: COMMON NORMALS: mental status grossly normal Urinary Catheter Management: Treadwell: Cath Placed During This Visit: yes, but has since been removed by the nurse Reason for Continuing Indwelling Catheter: Decision to DC Catheter Urinary Catheter Date of Insertion: 04/11/23 Urinary Catheter Time of Insertion: 22:20 Date Urinary Catheter Removed: 04/15/23 Time Urinary Catheter Discontinued: 16:52 Discharge Data Studies Completed and Pending Completed Studies During Hospitalization Category Date Time Status CT head wo con* [id number] Stat Cat Scan 04/11/23 12:01 Completed CXRP [XR chest 1V portable [id number]] Routine Exams 04/12/23 09:50 Completed XR chest 1V portable [id number] Stat Exams 04/11/23 11:11 [place] [id number] Routine Ultrasound 04/12/23 11:08 Completed US abdomen complete* [id number] Stat Ultrasound 04/14/23 08:46 Completed US echo complete [CV. echo complete* [id number]] Routine Ultrasound 04/12/23 09:49 Completed Pending at discharge Category Date Time Status Blood Culture Stat Lab 04/12/23 07:33 Results Complete Blood Count w/Auto AM LABS Lab 04/17/23 04:00 Ordered Comprehensive Metabolic Panel AM LABS Lab 04/17/23 04:00 Ordered Magnesium AM LABS Lab 04/17/23 04:00 Ordered Phosphorus AM LABS Lab 04/17/23 04:00 Ordered SARS Covid-2 Antigen Routine Lab 04/16/23 11:04 Received Urine Culture Stat Lab 04/14/23 16:20 Results Radiology Impressions Head CT 04/11/23 12:01 IMPRESSION: 1. No evidence of intracranial hemorrhage or mass effect. 2. Moderate to advanced small vessel changes with moderate parenchymal volume loss. This is progressed compared to 2019. 3. Intracranial vascular calcification. 4. No acute intracranial findings. Chest X-Ray 04/12/23 09:50 IMPRESSION: Nonspecific mild left lung base opacity favors atelectasis or pneumonia. Venous Duplex 04/12/23 11:08 IMPRESSION: No evidence of deep vein thrombosis. Abdomen Ultrasound 04/14/23 08:46 Impression: 1. Contracted gallbladder. There is shadowing from the region of the gallbladder fossa. Suspect the gallbladder is contracted with stones. Limited visualization of the gallbladder. 2. Marked hepatic steatosis. 3. No hydronephrosis. 4. RIGHT renal cyst. Laboratory Results WBC 6.3 10^3/uL (4.0-10.0) 04/16/23 05:55 RBC 2.54 10^6/uL (4.1-5.3) L 04/16/23 05:55 Hgb 9.4 g/dL (11.7-16.6) L 04/16/23 05:55 Hct 29.1 % (42.0-52.0) L 04/16/23 05:55 MCV 114.6 fl (80-94) H 04/16/23 05:55 MCH 37.0 pg (28.0-34.0) H 04/16/23 05:55 MCHC 32.3 g/dL (30.0-36.0) 04/16/23 05:55 RDW 18.0 % (12.1-15.1) H 04/16/23 05:55 Plt Count 250 10^3/cmm (130-400) 04/16/23 05:55 MPV 10.7 fL (7.4-10.4) H 04/16/23 05:55 Neut % (Auto) 71.8 % 04/14/23 07:22 Lymph % (Auto) Not Reportable 04/16/23 05:55 [place] % (Auto) Not Reportable 04/16/23 05:55 Eos % (Auto) 0.2 % 04/14/23 07:22 Baso % (Auto) 0.3 % 04/14/23 07:22 Neut # (Auto) 7.89 10^3/uL (1.8-7.7) H 04/14/23 07:22 Lymph # (Auto) Not Reportable 04/16/23 05:55 [place] # (Auto) Not Reportable 04/16/23 05:55 Eos # (Auto) 0.0 10^3/uL (0.0-0.8) 04/14/23 07:22 Baso # (Auto) 0.0 10^3/uL (0.0-0.1) 04/14/23 07:22 Nucleated RBC % (auto) 0.7 % 04/14/23 07:22 Total Counted 100 (0-100) 04/16/23 05:55 Atypical Lymphs % 0.0 % (0-5) 04/16/23 05:55 Absolute Neutrophils 4.1 10^3/cmm (1.4-6.5) 04/16/23 05:55 Segmented Neutrophils 60 % 04/16/23 05:55 Abs Segm Neuts (Man) 3.8 10/cmm (1.6-7.1) 04/16/23 05:55 Band Neutrophils 5.0 % 04/16/23 05:55 Abs Band Neuts (Man) 0.3 10^3/cmm (0.0-1.2) 04/16/23 05:55 Absolute Lymphocytes 1.4 10^3/cmm (1.2-3.4) 04/16/23 05:55 Lymphocytes (Manual) 22 % 04/16/23 05:55 Monocytes (Manual) 7.0 % 04/16/23 05:55 Absolute Monocytes 0.4 10^3/cmm (0.1-0.6) 04/16/23 05:55 Eosinophils (Manual) 1 % 04/16/23 05:55 Absolute Eosinophils 0.0 10^3/cmm (0.0-0.7) 04/16/23 05:55 Basophils (Manual) 0.0 % 04/16/23 05:55 Absolute Basophils 0.0 10^3/cmm (0.0-0.2) 04/16/23 05:55 Metamyelocytes 4.0 % 04/16/23 05:55 Myelocytes 1.0 % 04/16/23 05:55 Promyelocytes 0.0 % 04/15/23 05:09 Nucleated RBCs 1.0 /100WBC (0-1) 04/15/23 05:09 Nucleated RBCs # 0.1 /100WBC 04/14/23 07:22 Smudge Cells 1+ H 04/16/23 05:55 Platelet Estimate Normal (Normal) 04/16/23 05:55 Giant Platelets Trace 04/16/23 05:55 Anisocytosis 1+ H 04/15/23 05:09 Macrocytosis 1+ H 04/15/23 05:09 PT 15.20 SECONDS (12.1-14.9) H 04/11/23 11:39 INR 1.16 (0.8-1.2) 04/11/23 11:39 D-Dimer 0.81 ug/mIFEU (0-0.59) H 04/12/23 10:47 Sodium 133 mmol/L (136-145) L 04/16/23 05:55 Potassium 4.0 mmol/L (3.5-5.1) 04/16/23 05:55 Chloride 97 mmol/L (98-107) L 04/16/23 05:55 Carbon Dioxide 25 mmol/L (22-29) 04/16/23 05:55 Anion Gap 15.0 (5-19) 04/16/23 05:55 BUN 20 mg/dL (8-23) 04/16/23 05:55 Creatinine 1.2 mg/dL (0.7-1.2) 04/16/23 05:55 GFR Calculation Not Reportable 04/16/23 05:55 Glucose 85 mg/dL (65-115) 04/16/23 05:55 Estimat Average Glucose 80 04/11/23 11:39 Hemoglobin A1c 4.4 % (4.0-6.0) 04/11/23 11:39 Calculated Osmolality 278 mOsm/kg (285-295) L 04/16/23 05:55 Calcium 8.4 mg/dL (8.5-10.5) L 04/16/23 05:55 Phosphorus 0.5 mg/dL (2.5-4.5) L* 04/16/23 05:55 Magnesium 1.6 mg/dL (1.7-2.3) L 04/16/23 05:55 Total Bilirubin 3.8 mg/dL (0.15-1.2) H 04/16/23 05:55 AST 116 U/L (0-40) H 04/16/23 05:55 ALT 91 U/L (0-41) H 04/16/23 05:55 Alkaline Phosphatase 199 U/L (40-130) H 04/16/23 05:55 Ammonia 35 umol/L (16-60) 04/11/23 11:39 Troponin T Baseline 31 ng/L (0-15) H 04/11/23 11:39 Troponin T 120 Minute 27.73 ng/L (0-15) H 04/11/23 13:38 Delta Troponin T -3.27 ABS# (0-10) L 04/11/23 13:38 Troponin T Hi Sens 6Hr 29.34 ng/L (0-15) H 04/11/23 18:20 Troponin T Hi Sens 6Hr Delta -1.66 ng/L (0-12) L 04/11/23 18:20 Total Protein 5.3 g/dL (6.6-8.7) L 04/16/23 05:55 Albumin 2.7 g/dL (3.5-5.2) L 04/16/23 05:55 Globulin 2.6 g/dL (1.3-4.6) 04/16/23 05:55 Tumor Marker AFP 2.0 ng/mL (0-8.3) 04/11/23 11:39 TSH 9.25 uIU/mL (0.27-4.20) H 04/11/23 11:39 Urine Color [place] (Yellow) 04/11/23 13:06 Urine Appearance Sl hazy (CLEAR) A 04/11/23 13:06 Urine pH 5 (5-7) 04/11/23 13:06 Ur Specific [place] 1.020 (1.005-1.030) 04/11/23 13:06 Urine Protein Trace (Negative) 04/11/23 13:06 Urine Glucose (UA) Norm (Normal) 04/11/23 13:06 Urine Ketones 1+ (Negative) H 04/11/23 13:06 Urine Blood Neg (Negative) 04/11/23 13:06 Urine Nitrate Negative (Negative) 04/11/23 13:06 Urine Bilirubin 2+ (Negative) H 04/11/23 13:06 Urine Urobilinogen 4 mg/dL (Negative) H 04/11/23 13:06 Ur Leukocyte Esterase Negative (Negative) 04/11/23 13:06 Urine RBC None /hpf (0-2) 04/11/23 13:06 Urine WBC 5-10 /hpf (0-5) H 04/11/23 13:06 Ur Squamous Epith Cells Rare /hpf (0-5) 04/11/23 13:06 Amorphous Sediment Not Reportable 04/11/23 13:06 Urine Bacteria 2+ /hpf (NONE) H 04/11/23 13:06 Urine Mucus 1+ /hpf 04/11/23 13:06 Ethyl Alcohol < 10 mg/dL (0-10) 04/11/23 11:39 Hepatitis A IgM Ab Non-reactive (Nonreactive) 04/11/23 11:39 Hep Bs Antigen Non-reactive (Nonreactive) 04/11/23 11:39 Hep Bs Antibody < 3.5 (11.5-1000) L 04/11/23 11:39 Hep B Core Total Ab Non-reactive (Nonreactive) 04/11/23 11:39 Hepatitis C Antibody Non-reactive (Nonreactive) 04/11/23 11:39 Vitals Last Vital Signs Temp 98.3 F 04/16/23 07:38 Pulse 101 H 04/16/23 08:00 Resp 20 H 04/16/23 08:00 BP 114/66 04/16/23 07:38 Pulse Ox 97 04/16/23 08:00 O2 Del Method Room Air 04/16/23 08:00 Discharge Plan Discharge Patient Disposition: Xfer SNF Condition: Stable Prescriptions: New lactulose 20 gram/30 mL Solution 10 g PO Q24H 30 Days Qty: 450 0RF levothyroxine 25 mcg Tablet 25 mcg PO QAM 30 Days Qty: 30 0RF Phosphorous 250 mg tablet 1 tab PO BID 7 Days Qty: 14 0RF amoxicillin-pot clavulanate 875-125 mg Tablet 1 tab PO BID 5 Days Qty: 10 0RF magnesium L-lactate 84 mg tablet extended release 84 mg PO DAILY 30 Days Qty: 30 0RF Continued omeprazole 40 mg capsule,delayed release(DR/EC) 40 mg PO DAILY allopurinol 300 mg tablet 300 mg PO DAILY folic acid 1 mg tablet 1 mg PO DAILY gabapentin 300 mg capsule 300 mg PO BEDTIME multivitamin with iron Tablet 1 tab PO DAILY thiamine HCl (vitamin B1) 100 mg tablet 100 mg PO DAILY venlafaxine 75 mg Tablet 75 mg PO DAILY fluticasone propionate 50 mcg/actuation [place],Suspension 2 spray INTRANASAL DAILY PRN (Reason: Nasal Congestion) Rx Instructions: administer into each nostril cholecalciferol (vitamin D3) [Vitamin D3] 50 mcg (2,000 unit) Capsule 50 mcg PO DAILY cetirizine [Zyrtec] 10 mg Tablet 10 mg PO DAILY tamsulosin [Flomax] 0.4 mg capsule 0.8 mg PO BEDTIME Changed metoprolol tartrate 25 mg tablet 12.5 mg PO BID 30 Days Qty: 30 0RF Discharge Orders: Discharge Order (Routine); Ordered 04/16/23 Ordered By: Dale Cruz Referrals: [facility] [Other] ([facility] for [facility]. Phone number is [phone].) Paula Mo MD [Primary Care Provider] - Fernando Hewitt MD [Referring] - 2 weeks Reza Collier MD [Referring] - 2 weeks Discharge Diet: Cardiac Discharge Activity: Resume usual activity Patient Instructions: Opioid Safety Activity Restrictions/Additional Instructions: - Please follow-up with gastroenterology in 2 weeks -Please follow-up with primary care provider in 1 to 2 weeks -Please abstain from alcohol consumption -Please take your magnesium, phosphorus -Please take lactulose for hyperammonemia -Please follow-up with urology Discharge Attestations Time Spent in Discharge Care*: greater than 30 min Status at Discharge: Cognitive status at discharge: cognitively intact, Behavioral status at discharge: cooperative, Quality Metrics Clinical Quality Measures [ No reported AMI, CVA or VTE this stay] Coding Level of Care Code 60016 Total time (in minutes) for Discharge: 40 Diagnoses Aspiration pneumonia J69.0 GHADA (acute kidney injury) N17.9 Alcoholic hepatitis K70.10 Generalized weakness R53.1 Acute hyponatremia E87.1 Hypertrophy of prostate N40.0 Alcohol abuse F10.10 Acute on chronic anemia D64.9 Thrombocytopenia D69.6 Urinary retention R33.9 Anemia D64.9 Hyponatremia E87.1 Protein-calorie malnutrition, moderate E44.0 Physical deconditioning R53.81 Hypophosphatemia E83.39 Hypomagnesemia E83.42 Hypoalbuminemia E88.09
--- NOTE | 2023-04-16 12:09 | PC.SOCIAL ---
IMM update IMM updated with patient's DPOA Ghassan. Verbalized an understanding. Copy Pg 2 provided. Initialled, dated, timed, and placed in chart.
--- NOTE | 2023-04-16 12:29 | PC.PT ---
Patient was asleep during therapist's first attempt this date. During second attempt, nurse reports patient is being discharged to SNF early this afternoon.
[2023-04-16 12:38] LABS: SARS Covid-2 Antigen negative (Negative)
== END 2023-04-16 13:30 | disposition skilled nursing facility (03) | DRG 432 ==
LOC: ER 12:31 → MEDSURG 13:15 → ICU 21:05 → MEDSURG 04-13 06:05
PROVIDERS: Admitting Provider Internal Medicine; Emergency Provider Emergency Medicine; PCP Family Medicine; Visit Provider Family Medicine
DX: K70.11 Alcoholic hepatitis with ascites (principal); J69.0 Pneumonitis due to inhalation of food and vomit; E87.1 Hypo-osmolality and hyponatremia; N17.9 Acute kidney failure, unspecified; F10.259 Alcohol dependence with alcohol-induced psychotic disorder, unspecified; E44.0 Moderate protein-calorie malnutrition; F10.20 Alcohol dependence, uncomplicated; K70.31 Alcoholic cirrhosis of liver with ascites; D64.9 Anemia, unspecified; E83.42 Hypomagnesemia; I95.9 Hypotension, unspecified; Z68.31 Body mass index [BMI] 31.0-31.9, adult; K21.9 Gastro-esophageal reflux disease without esophagitis; Z85.828 Personal history of other malignant neoplasm of skin; I10 Essential (primary) hypertension; Z87.891 Personal history of nicotine dependence; N40.1 Benign prostatic hyperplasia with lower urinary tract symptoms; R33.8 Other retention of urine; R00.0 Tachycardia, unspecified; T50.906A Underdosing of unspecified drugs, medicaments and biological substances, initial encounter; Z91.128 Patient's intentional underdosing of medication regimen for other reason; D75.838 Other thrombocytosis
CPT/HCPCS: 36415; 51702; 70450; 71045; 76700; 80048; 80053; 80307; 81001; 82105; 82140; 83036; 83735; 84100; 84443; 84484; 85007; 85014; 85018; 85025; 85378; 85610; 86705; 86706; 86709; 86803; 87040; 87070; 87086; 87205; 87340; 87426; 87641; 92507; 92523; 92526; 92610; 93005; 93306; 93970; 94640; 96372; 96376; 97110; 97116; 97161; 97166; 97530; 97535; 99285; J1644; J1720; J3370; J3475; J3490; J7030; J7040; J7060

== ENCOUNTER 2023-06-07 13:37 | Emergency (ER) | payer OTHER, SELFPAY ==
[2023-06-07 13:52] VITALS: BP 142/82; PULSE 83; RESP 16; TEMP 36.8; O2SAT 99; BMI 32.5
--- NOTE | 2023-06-07 14:01 | ED_ITS ---
HPI - Male Genitourinary General: Chief complaint: Urogenital-Male Stated complaint: unable to urinate Time Seen by Provider: 06/07/23 13:50 Source: patient Mode of arrival: ambulatory Limitations: no limitations History of Present Illness: Patient is a 73-year-old male with past medical history of GERD, BPH and hypertension who presents to the emergency department complaining of urinary dribbling and frequency onset 2 weeks. Patient was recently discharged from a rehab facility, and somehow had his prescription of tamsulosin discontinued. This was approximately 3 weeks ago, and he has been having issues with urinating since stopping this medication. Patient states that he was diagnosed with benign prostatic hypertension [address] Sheriff, and has not seen urology since. He denies any fevers, chills, flank pain, dizziness, or any other symptoms. MD Complaint: other (trouble urinating, dribbling, increased urination at night) Onset (ago): week(s) Duration: intermittent Severity: moderate Exacerbating factors: none Context: other (flomax was discontinued ) Associated symptoms: Deny dysuria, hematuria, nausea, urinary incontinence or vomiting Review of Systems Const: Denies: fever(s) or chills Eyes: Denies: change in vision or blurry vision Card: Denies: chest pain, palpitations, irregular heart rhythm, lightheadedness, syncope or dyspnea on exertion Resp: Denies: dyspnea, productive cough or pain on inspiration GI: Denies: abdominal pain, nausea, vomiting, heartburn or diarrhea : Reports: difficulty urinating, urinary frequency, urinary dribbling, difficulty starting urination, change in urine stream and nocturia; Denies: flank pain, dysuria, oliguria, urinary incontinence, hematuria, testicular pain or scrotal swelling Musc: Denies: neck pain, back pain, extremity pain, extremity swelling or joint pain Skin/Breast: Denies: rash Neuro: Denies: headache(s), numbness in extremities, weakness in extremities, sensory changes or dizziness PFS ED PFSH: Medical History Diverticulosis large intestine w/o perforation or abscess w/bleeding [place] GERD (gastroesophageal reflux disease) GERD (gastroesophageal reflux disease) History of nonmelanoma skin cancer HTN (hypertension) Surgical History History of ankle surgery History of colonoscopy with polypectomy History of knee replacement History of surgery on arm 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 anabaptist No pertinent past surgical history Family History Mother , at age 89 Mini stroke Father , at age 54 Cancer Throat Social History Smoking and tobacco status: former smoker Alcohol intake: current Alcohol intake frequency: 3 or more drinks per day Caregiver/support person: Yes Lives independently: Yes Marital status: Single Current occupational status: retired Physical Exam Const: COMMON NORMALS: no acute distress, patient oriented x3, no limitations, alert and well nourished GENERAL APPEARANCE: cooperative and comfortable NUTRITIONAL APPEARANCE: obese ORIENTATION/CONSCIOUSNESS: Yes awake HENMT: COMMON NORMALS: normocephalic and atraumatic HEAD & SCALP: normocep halic and atraumatic Neck/C-Spine: COMMON NORMALS: full ROM, no lymphadenopathy, supple and no meningeal signs Chest: COMMONS NORMALS: normal inspection of the chest Resp: COMMON NORMALS: normal respiratory effort and clear to auscultation bilaterally AUSCULTATION: clear to auscultation bilaterally Cardio: COMMON NORMALS: regular rate and regular rhythm RATE: regular rate RHYTHM: regular rhythm GI: COMMON NORMALS: Normal to inspection, nondistended, normoactive bowel sounds present, Soft to palpation, non-tender, No hepatosplenomegaly present and no masses PALPATION: Yes Soft to palpation and Yes No hepatosplenomegaly present : COMMON NORMALS: Yes no CVA tenderness BLADDER/KIDNEY EXAM: Yes no CVA tenderness Back/Pelvis: COMMON NORMALS: no CVA tenderness, thoracic and lumbar spine normal to inspection, no thoracic nor lumbar tenderness and thoraco-lumbar ROM normal Extremity: COMMON NORMALS: normal to inspection GENERAL: Yes normal exam except as noted Neuro: COMMON NORMALS: patient oriented x3 SENSORIUM/ORIENTATION: Yes alert MENINGEAL SIGNS: Yes no meningeal signs Skin: COMMON NORMALS: no rashes or lesions noted GENERAL SKIN EXAM: no rashes or lesions noted Course Vital Signs: Vital signs: Vital Signs Temperature 98.2 F 06/07/23 13:52 Pulse Rate 83 06/07/23 13:52 Respiratory Rate 16 06/07/23 13:52 Blood Pressure 142/82 06/07/23 13:52 Pulse Oximetry 99 06/07/23 13:52 Oxygen Delivery Me thod Room Air 06/07/23 13:52 MDM - Male Medical Decision Making Patient with signs and symptoms of BPH. He states he has had the symptoms chronically but they were vastly improved while on his Flomax. This medication was for some reason discontinued 2 to 3 weeks ago while he was in rehab. Blood work and UA here are unremarkable. Bladder scanner upon arrival was roughly 50ml. Patient will be placed back on this medication and given follow-up for urology. Return to ED precautions given. Lab Data 06/07/23 14:20 06/07/23 14:20 Laboratory Results WBC 7.28 10^3/uL (3.29-11.43) 06/07/23 14:20 RBC 2.87 10^6/uL (3.85-5.65) L 06/07/23 14:20 Hgb 10.10 g/dL (11.27-16.99) L 06/07/23 14:20 Hct 30.3 % (37-53) L 06/07/23 14:20 MCV 105.6 fl (82-101) H 06/07/23 14:20 MCH 35.2 pg (27-33) H 06/07/23 14:20 MCHC 33.3 g/dL (30-55) 06/07/23 14:20 RDW 13.8 % (12.1-15.1) 06/07/23 14:20 Plt Count 234 10^3/cmm (157-399) 06/07/23 14:20 MPV 11.4 fL (7.4-10.4) H 06/07/23 14:20 Neut % (Auto) 62.2 % 06/07/23 14:20 Lymph % (Auto) 25.7 % 06/07/23 14:20 [place] % (Auto) 7.7 % 06/07/23 14:20 Eos % (Auto) 3.3 % 06/07/23 14:20 Baso % (Auto) 0.7 % 06/07/23 14:20 Neut # (Auto) 4.53 10^3/uL (1.8-7.7) 06/07/23 14:20 Lymph # (Auto) 1.9 10^3/uL (0.8-4.8) 06/07/23 14:20 [place] # (Auto) 0.6 10^3/uL (0.2-0.9) 06/07/23 14:20 Eos # (Auto) 0.2 10^3/uL (0.0-0.8) 06/07/23 14:20 Baso # (Auto) 0.1 10^3/uL (0.0-0.1) 06/07/23 14:20 Nucleated RBC % (auto) 0 % 06/07/23 14:20 Nucleated RBCs # 0.0 /100WBC 06/07/23 14:20 Sodium 138 mmol/L (136-145) 06/07/23 14:20 Potassium 4.0 mmol/L (3.5-5.1) 06/07/23 14:20 Chloride 101 mmol/L (98-107) 06/07/23 14:20 Carbon Dioxide 28 mmol/L (22-29) 06/07/23 14:20 Anion Gap 13.0 (5-19) 06/07/23 14:20 BUN 13 mg/dL (8-23) 06/07/23 14:20 Creatinine 0.7 mg/dL (0.7-1.2) 06/07/23 14:20 GFR Calculation Not Reportable 06/07/23 14:20 Glucose 98 mg/dL (65-115) 06/07/23 14:20 Calculated Osmolality 286 mOsm/kg (285-295) 06/07/23 14:20 Calcium 9.1 mg/dL (8.5-10.5) 06/07/23 14:20 Total Bilirubin 0.6 mg/dL (0.15-1.2) 06/07/23 14:20 AST 25 U/L (0-40) 06/07/23 14:20 ALT 13 U/L (0-41) 06/07/23 14:20 Alkaline Phosphatase 74 U/L (40-130) 06/07/23 14:20 Total Protein 6.6 g/dL (6.6-8.7) 06/07/23 14:20 Albumin 3.9 g/dL (3.5-5.2) 06/07/23 14:20 Globulin 2.7 g/dL (1.3-4.6) 06/07/23 14:20 Urine Color Dark yellow (Yellow) 06/07/23 15:15 Urine Appearance Clear (CLEAR) 06/07/23 15:15 Urine pH 5 (5-7) 06/07/23 15:15 Ur Specific [place] 1.020 (1.005-1.030) 06/07/23 15:15 Urine Protein Neg (Negative) 06/07/23 15:15 Urine Glucose (UA) Norm (Normal) 06/07/23 15:15 Urine Ketones Negative (Negative) 06/07/23 15:15 Urine Blood Neg (Negative) 06/07/23 15:15 Urine Nitrate Negative (Negative) 06/07/23 15:15 Urine Bilirubin Neg (Negative) 06/07/23 15:15 Urine Urobilinogen 1 mg/dL (Negative) H 06/07/23 15:15 Ur Leukocyte Esterase Negative (Negative) 06/07/23 15:15 Discharge Plan Discharge Patient Disposition: Home Clinical Impression: Benign prostatic hyperplasia Qualifiers: Lower urinary tract symptom presence: symptoms present Lower urinary tract symp mykel detail: post-void dribbling Qualified Code(s): N40.1 - Benign prostatic hyperplasia with lower urinary tract symptoms Condition: Stable Prescriptions: New Flomax 0.4 mg capsule 0.4 mg PO DAILY Qty: 30 0RF No Action allopurinol 300 mg tablet 300 mg PO DAILY folic acid 1 mg tablet 1 mg PO DAILY gabapentin 300 mg capsule 300 mg PO BEDTIME multivitamin with iron Tablet 1 tab PO DAILY fluticasone propionate 50 mcg/actuation [place],Suspension 2 spray INTRANASAL DAILY PRN (Reason: Nasal Congestion) Rx Instructions: administer into each nostril cholecalciferol (vitamin D3) [Vitamin D3] 50 mcg (2,000 unit) Capsule 50 mcg PO DAILY cetirizine [Zyrtec] 10 mg Tablet 10 mg PO DAILY metoprolol tartrate 25 mg tablet 12.5 mg PO BID 30 Days Qty: 30 0RF calcitonin (salmon) 200 unit/actuation [place],Non-Aerosol 1 spray INTRANASAL (ALT) DAILY pantoprazole 40 mg Tablet,Delayed Release (Dr/Ec) 40 mg PO DAILY levothyroxine 25 mcg tablet 25 mcg PO DAILY Discharge Orders: Discharge ED (Routine); Ordered 06/07/23 Ordered By: Sadia Chakraborty Referrals: Paula Mo MD [Primary Care Provider] - Activity Restrictions/Additional Instructions: As discussed we will have case management set you up with your follow-up urology appointment. We will place you back on your Flomax to help with symptoms. You need to return to the emergency department for any inability to urinate, severe abdominal pain, fevers, generally feeling worse or unwell, or any other concerns you may have. Coding Level of Care Code ED Outreach Director for Moe Anand
[2023-06-07 14:31] LABS: Basophils # 0.1 10^3/uL (0.0-0.1); Basophils % 0.7 %; Eosinophils # 0.2 10^3/uL (0.0-0.8); Eosinophils % 3.3 %; Hematocrit 30.3 % (37-53); Lymphocytes # 1.9 10^3/uL (0.8-4.8); Lymphocytes % 25.7 %; Mean Corpuscular HGB Conc 33.3 g/dL (30-55); Mean Corpuscular Hemoglobin 35.2 pg (27-33); Mean Corpuscular Volume 105.6 fl (82-101); Mean Platelet Volume 11.4 fL (7.4-10.4); Monocytes # 0.6 10^3/uL (0.2-0.9); Monocytes % 7.7 %; Neutrophils # 4.53 10^3/uL (1.8-7.7); Neutrophils % 62.2 %; Nucleated Red Blood Cells % 0 %; Platelet Count 234 10^3/cmm (157-399); Red Blood Count 2.87 10^6/uL (3.85-5.65); Red Cell Distribution Width 13.8 % (12.1-15.1); White Blood Count 7.28 10^3/uL (3.29-11.43)
[2023-06-07 14:48] LABS: Alanine Aminotransferase 13 U/L (0-41); Albumin Level 3.9 g/dL (3.5-5.2); Alkaline Phosphatase 74 U/L (40-130); Aspartate Amino Transferase 25 U/L (0-40); Blood Urea Nitrogen 13 mg/dL (8-23); Calcium 9.1 mg/dL (8.5-10.5); Carbon Dioxide 28 mmol/L (22-29); Chloride 101 mmol/L (98-107); Creatinine Clr Calc Pharmacy 94.3433; Globulin 2.7 g/dL (1.3-4.6); Glucose 98 mg/dL (65-115); Osmolality Calculated 286 mOsm/kg (285-295); Sodium 138 mmol/L (136-145); Total Bilirubin 0.6 mg/dL (0.15-1.2); Total Protein 6.6 g/dL (6.6-8.7)
[2023-06-07 15:24] LABS: Add Urine Microscopic? NO; Charge for UA Resulting for Rev
[2023-06-07 15:37] LABS: Bilirubin Urine Neg (Negative); Blood Urine Neg (Negative); Glucose Urine UA Norm (Normal); Ketones Urine Negative (Negative); Leukocyte Esterase Urine Negative (Negative); Nitrate Urine Negative (Negative); Protein Urine Neg (Negative); Urine Appearance Clear (CLEAR); Urine Color Dark yellow (Yellow); Urobilinogen Urine 1 mg/dL (Negative); pH Urine 5 (5-7)
--- NOTE | 2023-06-08 09:24 | DCPLANNER ---
frozen food department manager had message to schedule a follow up appointment for patient with urology. frozen food department manager called patient to confirm where he wanted the referral sent to, patient stated that he wanted the referral sent to [facility]. [place]. frozen food department manager faxed patients information to [facility], it will be reviewed, clinic will call patient with appointment information.
== END 2023-06-07 16:09 | disposition home or self-care (01) ==
PROVIDERS: Emergency Provider Physician Assistant; PCP Family Medicine
DX: N40.1 Benign prostatic hyperplasia with lower urinary tract symptoms (principal); Z87.891 Personal history of nicotine dependence; I10 Essential (primary) hypertension
CPT/HCPCS: 36415; 51798; 80053; 81003; 85025; 99283

== ENCOUNTER 2023-06-30 12:02 | Emergency (ER) | payer OTHER, SELFPAY ==
[2023-06-30 12:12] VITALS: BP 128/79; PULSE 81; RESP 20; TEMP 36.6; O2SAT 98; BMI 32.5
--- NOTE | 2023-06-30 12:44 | W.ED.BACK ---
HPI - Back Pain/Injury General: Chief Complaint: Back Pain/Injury Stated Complaint: abd pain (back) Time Seen by Provider: 06/30/23 12:14 History of Present Illness: 73-year-old male presents to the emergency department with pain in the right buttock that radiates into the posterior thigh on the right side. Patient has a habit of sitting crosslegged and watching television. He reports it is worse when he is doing this is also worse when he has a normal seated position and he sits too long . He does not have any pain in the back per se but does sometimes feel it radiating towards his right SI joint. No fever, chills, urine incontinence, wounds, weakness, numbness, tingling. Associated symptoms: Deny abdominal pain, chills, difficulty walking, dysuria, fever(s), nausea, syncope or vomiting Review of Systems General: Reports: 10 or more systems reviewed and unremarkable except in HPI and below Const: Denies: fever(s), chills or body aches Eyes: Denies: change in vision Card: Denies: chest pain, edema or syncope Resp: Denies: dyspnea or productive cough GI: Denies: abdominal pain, nausea, vomiting or diarrhea : Denies: flank pain, dysuria or urinary frequency Musc: Denies: neck pain or extremity swelling Skin/Breast: Denies: rash or erythema Neuro: Denies: headache(s), numbness in extremities, weakness in extremities, lack of coordination or difficulty walking PFS ED PFSH: Medical History Diverticulosis large intestine w/o perforation or abscess w/bleeding [place] GERD (gastroesophageal reflux disease) GERD (gastroesophageal reflux disease) History of nonmelanoma skin cancer HTN (hypertension) Surgical History History of ankle surgery History of colonoscopy with polypectomy History of knee replacement History of surgery on arm 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 No pertinent past surgical history Family History Mother , at age 89 Mini stroke Father , at age 54 Cancer Throat Social History Smoking and tobacco status: former smoker Alcohol intake: current Alcohol intake frequency: 3 or more drinks per day Caregiver/support person: Yes Lives independently: Yes Marital status: Single Current occupational status: retired Physical Exam Const: COMMON NORMALS: no limitations, alert and well nourished EXAM LIMITATIONS: no altered mental status HENMT: COMMON NORMALS: normocephalic, atraumatic and external ears normal HEAD & SCALP: normocephalic and atraumatic EXTERNAL EAR: Yes external ears normal MOUTH: no muffled voice Neck/C-Spine: GENERAL: Yes normal visual inspection and Yes trachea midline Resp: OTHER: Pickwickian syndrome, when he is laying supine, he has increased work of breathing, when he sits up it appears normal. Massively obese abdomen appears to be applying pressure to his diaphragm and thus causing him to have to generate a higher negative inspiratory force in order to move air Cardio: COMMON NORMALS: regular rate and regular rhythm RATE: regular rate RHYTHM: regular rhythm GI: COMMON NORMALS: Soft to palpation and non-tender PALPATION: Yes Soft to palpation and No Guarding due to palpation present (GI) Back/Pelvis: OTHER: Spinal alignment he is within normal limits based on palpation. Spinal rotation does not cause any pain. Spinal flexion does not cause any pain. No midline tenderness. SI joints are nontender. Patient does have significant tenderness in the piriformis notch. This reproduces his pain Extremity: COMMON NORMALS: normal to inspection NARRATIVE EXTREMITY EXAM: Passive range of motion of the hips, knees, ankles does not reproduce his pain. Straight leg raise negative bilaterally. Palpation in the piriformis notch does reproduce his pain. Patellar reflexes and Achilles reflexes are symmetric and intact. Neuro: COMMON NORMALS: moves all extremities, no focal motor deficits and no sensory deficits noted SENSORIUM/ORIENTATION: Yes alert SPEECH: speech normal Psych: COMMON NORMALS: mental status grossly normal, Normal thought process present, cooperative, normal affect and speech normal SPEECH: Yes normal speech THOUGHT PROCESS: Normal thought process present Skin: COMMON NORMALS: no rashes or lesions noted, turgor normal and no jaundice GENERAL SKIN EXAM: no rashes or lesions noted and turgor normal Course Vital Signs: Vital signs: Vital Signs Temperature 97.8 F 06/30/23 12:12 Pulse Rate 81 06/30/23 12:12 Respiratory Rate 20 H 06/30/23 12:12 Blood Pressure 128/79 06/30/23 12:12 Pulse Oximetry 98 06/30/23 12:12 Oxygen Delivery Me thod Room Air 06/30/23 12:12 MDM - Back Pain/Injury Medical Decision Making Patient has tenderness in the piriformis notch. He often sits cross legged which would be a big risk factor for this. This could be pinching of the sciatic nerve or else could be piriformis muscle spasm. Its only on the right side. He does not have classic straight leg raise. No spinal tenderness or other red flags. He had an acute kidney injury a few weeks ago but this resolved. We are going to try him on NSAIDs for 1 week. Were also going to have him avoid sitting crosslegged, avoid sitting less, avoid sitting on hard surfaces, doing more stretching and more activity. Follow-up PCP. No radiology studies performed this visit Discharge Plan Discharge Patient Disposition: Home Clinical Impression: Piriformis syndrome of right side Condition: Stable Prescriptions: New naproxen 250 mg tablet 250 mg PO BID PRN (Reason: pain) Qty: 14 0RF No Action allopurinol 300 mg tablet 300 mg PO DAILY folic acid 1 mg tablet 1 mg PO DAILY gabapentin 300 mg capsule 300 mg PO BEDTIME multivitamin with iron Tablet 1 tab PO DAILY fluticasone propionate 50 mcg/actuation [place],Suspension 2 spray INTRANASAL DAILY PRN (Reason: Nasal Congestion) Rx Instructions: administer into each nostril cholecalciferol (vitamin D3) [Vitamin D3] 50 mcg (2,000 unit) Capsule 50 mcg PO DAILY cetirizine [Zyrtec] 10 mg Tablet 10 mg PO DAILY metoprolol tartrate 50 mg Tablet 25 mg PO BID calcitonin (salmon) 200 unit/actuation [place],Non-Aerosol 1 spray INTRANASAL (ALT) DAILY pantoprazole 40 mg Tablet,Delayed Release (Dr/Ec) 40 mg PO DAILY levothyroxine 25 mcg tablet 25 mcg PO DAILY tamsulosin [Flomax] 0.4 mg capsule 0.4 mg PO DAILY Qty: 30 0RF Discharge Orders: Discharge ED (Routine); Ordered 06/30/23 Ordered By: Elie Styles Referrals: Paula Mo MD [Primary Care Provider] - 7-10 days Patient Instructions: Piriformis Syndrome (ED), Opioid Safety, Pain Management Activity Restrictions/Additional Instructions: Avoid long periods of sitting. Avoid sitting crosslegged. Avoid sitting on hard surfaces. Offload pressure from the right buttock when you do have to sit. Going on walks and doing stretching is often helpful. Follow-up with your family doctor in 7 to 10 days if symptoms or not improving. Coding Level of Care Code ED [facility] [employer]aker for Moe Anand
== END 2023-06-30 12:59 | disposition home or self-care (01) ==
PROVIDERS: Emergency Provider Emergency Medicine; PCP Family Medicine
DX: G57.01 Lesion of sciatic nerve, right lower limb (principal); Z87.891 Personal history of nicotine dependence; I10 Essential (primary) hypertension
CPT/HCPCS: 99283

== ENCOUNTER → 2024-01-25 10:36 | Outpatient (BNVA) | payer OTHER, SELFPAY | PROVIDERS: PCP Family Medicine; Visit Provider Nurse Practitioner Family | DX: L57.0 Actinic keratosis (principal); C44.222 Squamous cell carcinoma of skin of right ear and external auricular canal; C44.329 Squamous cell carcinoma of skin of other parts of face; D22.5 Melanocytic nevi of trunk; L81.4 Other melanin hyperpigmentation; L57.8 Other skin changes due to chronic exposure to nonionizing radiation; L82.1 Other seborrheic keratosis; Z85.828 Personal history of other malignant neoplasm of skin | CPT/HCPCS: 11102; 17004; 69100; 99213 ==

== ENCOUNTER → 2024-06-19 14:20 | Outpatient (BNVA) | payer OTHER, SELFPAY | PROVIDERS: PCP Family Medicine; Visit Provider Nurse Practitioner Family | DX: L57.0 Actinic keratosis (principal); D22.5 Melanocytic nevi of trunk; L81.4 Other melanin hyperpigmentation; L57.8 Other skin changes due to chronic exposure to nonionizing radiation; L82.1 Other seborrheic keratosis | CPT/HCPCS: 17000; 99213 ==

== ENCOUNTER 2024-09-17 07:41 | Outpatient (CLI) | payer OTHER, SELFPAY ==
--- NOTE | 2024-09-17 07:52 | CT_ITS ---
WS: [id number] CT LUMBAR SPINE, noncontrast. HISTORY: VERTEBROGENIC LOW BACK PAIN TECHNIQUE: Contiguous 2.0 mm axial imaging are performed. Sagittal and coronal reformats are submitte d and reviewed. All CT scans at [facility] use at least one of these dose optimization techni ques: automated exposure control; mA and/or kV adjustment per patient size (includes targeted exams w here dose is matched to clinical indication); or iterative reconstruction. IV contrast: None DLP: 1412.57 mGy.cm COMPARISON: CT 11/15/2022 Straightening of the normal lumbar alignment. L2 retrolisthesis by 5 mm. Similar retrolisthesis noted on 11/15/2022. There is new vacuum disc phenomenon at the L2-3 disc level with air extending into a Sc hmorl's node along the inferior endplate of L2. Mild anterior wedging of L2 by approximately 20% loss of height. Asymmetric disc space narrowing. Greater narrowing along the RIGHT lateral disc. Moderate to severe disc space narrowing at L5-S1. Facets are normally aligned. L1-2: Normal. L2-3: Diffuse annular disc bulging encroaching upon the ventral thecal sac and subarticular recesses. Disc encroaches into the subarticular recesses mild central stenosis with moderate subarticular rece ss and foraminal stenosis. There is disc encroachment upon both the L2 and L3 nerve roots. L3-4: Mild disc bulging and mild facet arthritis. Mild foraminal narrowing. L4-5: Very shallow LEFT paracentral disc protrusion. Mild bilateral foraminal stenosis, LEFT greater than RIGHT. L5-S1: Mild osteophytic ridging with LEFT paracentral disc protrusion. Moderate bilateral facet joint arthropathy. Moderate to severe bilateral foraminal stenosis due to combination of disc and osteophy te and facet disease. Atherosclerosis aorta. CT/CT lumbar spine wo con* [id number] IMPRESSION: 1. Mild anterior wedging of L2 by 20%. Stable since 11/15/2022. 2. New vacuum disc phenomenon at L2-3 with air extending into the Schmorl's no de along the inferior endplate of L2. 3. L2 retrolisthesis by 5 mm, stable. 4. Advanced degenerative disc disease at L5-S1. 5. L5-S1: Moderate to severe bilateral foraminal stenosis due to disc, facet a nd osteophyte disease. 6. L4-5: Mild bilateral foraminal stenosis, LEFT greater than RIGHT. 7. L2-3: Mild central with moderate bilateral subarticular recess and foramina l stenosis.
== END 2024-09-17 07:42 | disposition home or self-care (01) ==
LOC: RAD 07:42
PROVIDERS: PCP Family Medicine; Visit Provider Nurse Practitioner
DX: M51.360 Other intervertebral disc degeneration, lumbar region with discogenic back pain only (principal); M51.46 Schmorl's nodes, lumbar region; M46.06 Spinal enthesopathy, lumbar region; M51.370 Other intervertebral disc degeneration, lumbosacral region with discogenic back pain only; M99.63 Osseous and subluxation stenosis of intervertebral foramina of lumbar region; M47.896 Other spondylosis, lumbar region; M25.78 Osteophyte, vertebrae
CPT/HCPCS: 72131

== ENCOUNTER → 2024-11-20 08:34 | Outpatient (BNVA) | payer OTHER, SELFPAY | PROVIDERS: PCP Family Medicine; Visit Provider Nurse Practitioner Family | DX: D22.5 Melanocytic nevi of trunk (principal); L81.4 Other melanin hyperpigmentation; L57.8 Other skin changes due to chronic exposure to nonionizing radiation; L82.1 Other seborrheic keratosis; Z08 Encounter for follow-up examination after completed treatment for malignant neoplasm; Z85.828 Personal history of other malignant neoplasm of skin; L57.0 Actinic keratosis; L82.0 Inflamed seborrheic keratosis; Z78.9 Other specified health status; Z29.89 Encounter for other specified prophylactic measures; L53.8 Other specified erythematous conditions | CPT/HCPCS: 17004; 17110; 99213 ==

== ENCOUNTER → 2025-03-25 10:41 | Outpatient (BNVA) | payer OTHER, SELFPAY | PROVIDERS: PCP Family Medicine; Referring Provider Family Medicine; Visit Provider Anesthesiology Pain Medicine | DX: M54.9 Dorsalgia, unspecified (principal); M47.816 Spondylosis without myelopathy or radiculopathy, lumbar region; M48.061 Spinal stenosis, lumbar region without neurogenic claudication | CPT/HCPCS: 99204 ==

== ENCOUNTER → 2025-03-26 08:51 | Outpatient (BNVA) | payer OTHER, SELFPAY | PROVIDERS: PCP Family Medicine; Visit Provider Nurse Practitioner Family | DX: D22.5 Melanocytic nevi of trunk (principal); L81.4 Other melanin hyperpigmentation; L57.8 Other skin changes due to chronic exposure to nonionizing radiation; L82.1 Other seborrheic keratosis; Z08 Encounter for follow-up examination after completed treatment for malignant neoplasm; Z85.828 Personal history of other malignant neoplasm of skin; L57.0 Actinic keratosis | CPT/HCPCS: 17000; 99213 ==

== ENCOUNTER → 2025-09-23 08:29 | Outpatient (BNVA) | payer OTHER, SELFPAY | PROVIDERS: PCP Family Medicine; Visit Provider Nurse Practitioner Family | DX: L57.8 Other skin changes due to chronic exposure to nonionizing radiation (principal); Z08 Encounter for follow-up examination after completed treatment for malignant neoplasm; L81.4 Other melanin hyperpigmentation; Z85.828 Personal history of other malignant neoplasm of skin; L82.1 Other seborrheic keratosis; L57.0 Actinic keratosis; D22.5 Melanocytic nevi of trunk; D48.5 Neoplasm of uncertain behavior of skin | CPT/HCPCS: 11102; 17004; 99213 ==